=== PATIENT | male | born 1970 | race Two or more races ===

== ENCOUNTER 2023-12-12 21:40 | Emergency (ER) | payer MEDICAID ==
[~2023-12-12] VITALS: Ht 162.6 cm; Wt 86.0 kg
[2023-12-12] MEDS ORDERED: dicyclomine 10 MG capsule PO ONE (23:40)
[2023-12-12] MEDS ORDERED: normal saline 1000ML IV soln IVB ONE (23:40)
[2023-12-12] MEDS ORDERED: famotidine/PF 10 mg/ml inj IV ONE (23:40)
[2023-12-12] MEDS ORDERED: ondansetron/PF 4mg/2ml inj IV ONE (23:50)
[2023-12-13 00:01] LABS: BASOPHILS % (AUTO) 0.3 % (0-1); EOSINOPHILS # (AUTO) 0.3 X10'3 (0-0.9); EOSINOPHILS % (AUTO) 2.5 % (0-6); LYMPHOCYTES # (AUTO) 0.4 X10'3 (1.1-4.8); LYMPHOCYTES % (AUTO) 3.4 % (21-51); MEAN PLATELET VOLUME 8.4 FL (7.4-10.4); MONOCYTES # (AUTO) 0.9 X10'3 (0-0.9); MONOCYTES % (AUTO) 7.7 % (2-12); NEUTROPHILS # (AUTO) 9.8 X10'3 (1.8-7.7); NEUTROPHILS % (AUTO) 86.1 % (42-75); PLATELET COUNT 387 X10'3 (140-440); WHITE BLOOD COUNT 11.4 X10'3 (4.5-11.0)
[2023-12-13 00:17] LABS: ALANINE AMINOTRANSFERASE 14 U/L (12-78); ALBUMIN 3.7 G/DL (3.4-5.0); ALBUMIN/GLOBULIN RATIO 0.9 (1.1-1.5); ALKALINE PHOSPHATASE 98 IU/L (46-116); ANION GAP 10 (8-16); ASPARTATE AMINO TRANSFERASE 8 U/L (10-37); BILIRUBIN,TOTAL 0.7 MG/DL (0.1-1.0); BLOOD UREA NITROGEN 16 MG/DL (7-18); BUN/CREATININE RATIO 19.3 (10.0-20.0); CALCIUM 8.1 MG/DL (8.5-10.1); CHLORIDE 108 MMOL/L (99-107); CREATININE 0.83 MG/DL (0.60-1.10); ETHANOL < 10 MG/DL (<10); GLUCOSE 97 MG/DL (70-104); LIPASE 34 U/L (16-77); POTASSIUM 3.9 MMOL/L (3.5-5.1); SODIUM 140 MMOL/L (135-145); TOTAL CARBON DIOXIDE 21.7 MMOL/L (24-32); TOTAL PROTEIN 7.8 G/DL (6.4-8.2); eCRCL 85 ML/MIN; eGFR > 90 ML/MIN
[2023-12-13 00:25] LABS: HEMATOCRIT 29.9 % (42.0-52.0); HEMOGLOBIN 9.7 g/dl (14.0-17.9); MEAN CORPUSCULAR HEMOGLOBIN 18.9 PG (27.0-31.0); MEAN CORPUSCULAR VOLUME 58.4 FL (78-98); RED BLOOD COUNT 5.13 X10'6 (4.70-6.10)
[2023-12-13 00:26] LABS: MEAN CORPUSCULAR HGB CONC 32.4 g/dL (33.0-36.5); RED CELL DISTRIBUTION WIDTH 18.2 % (11.5-14.5)
[2023-12-13 02:19] LABS: BILIRUBIN,URINE NEGATIVE (Neg); CLARITY,URINE CLOUDY (Clear); COLOR,URINE YELLOW (Yellow); GLUCOSE, URINE NEGATIVE (Neg); KETONES,URINE NEGATIVE (Neg); LEUKOCYTE ESTERASE ,URINE NEGATIVE (Neg); NITRITES, URINE NEGATIVE (Neg); OCCULT BLOOD,URINE TRACE-INTACT (Neg); PROTEIN,URINE 30 mg/dl (Neg); UROBILINOGEN,URINE 0.2 E.U/dL (0.2-1.0)
[2023-12-13 02:34] LABS: UA COLLECTION TYPE URINAL
[2023-12-13 02:35] LABS: MUCUS STRANDS MANY /LPF (Neg); SQUAMOUS EPITHELIAL CELL,UR FEW /LPF (FEW)
[2023-12-13 02:36] LABS: BACTERIA,URINE 1+ /HPF (Neg); SPERM MANY /HPF (NEGATIVE); WBC,URINE 0-4 /HPF (0-4)
[2023-12-13 03:41] VITALS: BP 120/69; PULSE 71; RESP 16; TEMP 98.2; O2SAT 98
[2023-12-13 09:59] LABS: OCCULT BLOOD STOOL NEGATIVE (Neg)
== END 2023-12-13 04:03 | disposition home or self-care (01) ==
LOC: ER 21:43
DX: R10.9 Unspecified abdominal pain (principal); Z88.6 Allergy status to analgesic agent; Z79.899 Other long term (current) drug therapy
CPT/HCPCS: 36415; 80053; 80320; 81001; 82272; 83690; 85025; 96361; 96374; 96375; 99285; J2405; J3490; J7030

== ENCOUNTER 2023-12-16 16:29 | Inpatient (IN) | payer MEDICAID ==
[~2023-12-16] VITALS: Ht 162.6 cm; Wt 90.0 kg
[2023-12-16] MEDS: morphine 2 MG/ML inj. syringe IV ONE ×2 (16:43→16:45)
[2023-12-16] MEDS: morphine 4 MG/ML inj SYRINge IV ONE (16:43)
[2023-12-16] MEDS ORDERED: midazolam 1 mg/ML 2ml injection ONE (16:44)
[2023-12-16] MEDS: heparin 10,000 units/1 ML INJ IV ONE (16:44)
[2023-12-16] MEDS ORDERED: heparin 1,000unit/ml 10ml vial 10 ML ONE (16:44)
[2023-12-16] MEDS ORDERED: LIDOcaine 1% 30ml preserv. free vial ONE (16:44)
[2023-12-16] MEDS ORDERED: fentaNYL/PF 50MCG/1 ML 2ML syringe ONE (16:44)
[2023-12-16] MEDS ORDERED: iohexol 350MG/ML 100ml bottle IV ONE ×2 (16:44→17:13)
[2023-12-16] MEDS: heparin 25,000 UNIT/250ml bag 250 ML IV PRN ×2 (16:45)
[2023-12-16] MEDS ORDERED: heparin 10,000 units/1 ML INJ IV ONE (16:45)
[2023-12-16] MEDS: nitroGLYCERIN 0.4mg SUBLingual tab SL PRN (16:46)
[2023-12-16] MEDS ORDERED: nitroGLYCERIN 500mcg/5mL D5W 5 ML IV ONE (16:55)
[2023-12-16] MEDS ORDERED: ondansetron/PF 4mg/2ml inj ONE ×2 (17:00→17:24)
[2023-12-16 17:09] LABS: BASOPHILS % (AUTO) 0.5 % (0-1); EOSINOPHILS # (AUTO) 0.1 X10'3 (0-0.9); EOSINOPHILS % (AUTO) 0.8 % (0-6); LYMPHOCYTES # (AUTO) 1.3 X10'3 (1.1-4.8); LYMPHOCYTES % (AUTO) 17.2 % (21-51); MEAN PLATELET VOLUME 8.5 FL (7.4-10.4); MONOCYTES # (AUTO) 1.3 X10'3 (0-0.9); MONOCYTES % (AUTO) 16.9 % (2-12); NEUTROPHILS % (AUTO) 64.6 % (42-75); PLATELET COUNT 445 X10'3 (140-440); WHITE BLOOD COUNT 7.8 X10'3 (4.5-11.0)
[2023-12-16 17:21] LABS: ALBUMIN 4.2 G/DL (3.4-5.0); ANION GAP 18 (8-16); BLOOD UREA NITROGEN 28 MG/DL (7-18); BUN/CREATININE RATIO 21.7 (10.0-20.0); CALCIUM 8.6 MG/DL (8.5-10.1); CHLORIDE 106 MMOL/L (99-107); CREATININE 1.29 MG/DL (0.60-1.10); GLUCOSE 138 MG/DL (70-104); POTASSIUM 3.3 MMOL/L (3.5-5.1); SODIUM 139 MMOL/L (135-145); TOTAL CARBON DIOXIDE 15.4 MMOL/L (24-32); eCRCL 55 ML/MIN; eGFR 58 ML/MIN
[2023-12-16 17:28] LABS: PRO BRAIN NATRIURETIC PEPTIDE 47 PG/ML (0-125)
[2023-12-16 17:36] LABS: HEMATOCRIT 34.6 % (42.0-52.0); HEMOGLOBIN 10.9 g/dl (14.0-17.9); MEAN CORPUSCULAR HEMOGLOBIN 18.3 PG (27.0-31.0); MEAN CORPUSCULAR HGB CONC 31.4 g/dL (33.0-36.5); MEAN CORPUSCULAR VOLUME 58.1 FL (78-98); RED BLOOD COUNT 5.95 X10'6 (4.70-6.10); RED CELL DISTRIBUTION WIDTH 18.6 % (11.5-14.5)
[2023-12-16] MEDS ORDERED: tPA-cathflo 2 MG/2 ml IV flush ONE (17:38)
[2023-12-16 17:46] LABS: APTT 25 SECONDS (22-32); PROTHROMBIN TIME 10.4 SECONDS (9.0-12.0)
[2023-12-16] MEDS ORDERED: proCHLORperazine 10 MG/2 ml inj ONE (17:47)
[2023-12-16] MEDS ORDERED: tirofiban 12.5mg in NS 250mL 250 ML IV ONE (17:59)
[2023-12-16] MEDS: normal saline 1000ml 1,000 ML IV ONE (18:00)
[2023-12-16] MEDS: tirofiban 12.5mg in NS 250mL 250 ML IV SCH (18:15)
[2023-12-16 18:27] LABS: TOTAL CELLS COUNTED 100
[2023-12-16 18:35] LABS: HYPOCHROMASIA 1+; PLATELET ESTIMATE INCREASED; POLYCHROMASIA 1+; SCHISTOCYTES FEW; TARGET CELLS FEW
[2023-12-16 19:00] VITALS: BP_SYST 126; BP_SYST 146; BP_DIAS 81; BP_DIAS 89; PULSE 86; RESP 18; O2SAT 97
[2023-12-16] MEDS ORDERED: magnesium hydroxide 30ml (MOM) UD suspension PO PRN (19:35)
[2023-12-16] MEDS ORDERED: acetaminophen 325mg tablet PO PRN (19:40)
[2023-12-16 20:00] VITALS: BP_SYST 133; BP_SYST 158; BP_DIAS 87; BP_DIAS 94; PULSE 85; RESP 21; O2SAT 98
[2023-12-16] MEDS: docusate sod 100mg capsule PO SCH (20:00)
[2023-12-16] MEDS ORDERED: PERFLUTREN PROTEIN-A MICROSPHR (Optison) 0.22 MG/ML 3ML VIAL IV PRN (20:10)
[2023-12-16] MEDS ORDERED: lisinopril 5mg tablet PO ONE (20:30)
[2023-12-16 21:00] VITALS: BP_SYST 135; BP_SYST 157; BP_DIAS 90; BP_DIAS 94; PULSE 81; RESP 16; O2SAT 98
[2023-12-16 22:00] VITALS: BP_SYST 133; BP_SYST 153; BP_DIAS 90; BP_DIAS 92; PULSE 80; RESP 14; O2SAT 98
[2023-12-16 23:00] VITALS: BP_SYST 130; BP_SYST 159; BP_DIAS 91; BP_DIAS 95; PULSE 81; RESP 15; O2SAT 98
[2023-12-17] VITALS (22 sets, daily range): BP systolic 116–155; BP diastolic 38–95; PULSE 69–98; RESP 11–21; O2SAT 94–99
[2023-12-17 02:34] LABS: BASOPHILS % (AUTO) 0.3 % (0-1); EOSINOPHILS # (AUTO) 0.1 X10'3 (0-0.9); EOSINOPHILS % (AUTO) 1.1 % (0-6); LYMPHOCYTES # (AUTO) 1.5 X10'3 (1.1-4.8); LYMPHOCYTES % (AUTO) 20.8 % (21-51); MEAN PLATELET VOLUME 8.9 FL (7.4-10.4); MONOCYTES # (AUTO) 0.8 X10'3 (0-0.9); MONOCYTES % (AUTO) 11.4 % (2-12); NEUTROPHILS # (AUTO) 4.9 X10'3 (1.8-7.7); NEUTROPHILS % (AUTO) 66.4 % (42-75); PLATELET COUNT 379 X10'3 (140-440); WHITE BLOOD COUNT 7.4 X10'3 (4.5-11.0)
[2023-12-17] MEDS: heparin 10,000 units/1 ML INJ IV PRN (02:44)
[2023-12-17 02:47] LABS: ALANINE AMINOTRANSFERASE 39 U/L (12-78); ALBUMIN 3.2 G/DL (3.4-5.0); ALBUMIN/GLOBULIN RATIO 0.9 (1.1-1.5); ALKALINE PHOSPHATASE 83 IU/L (46-116); ANION GAP 12 (8-16); ASPARTATE AMINO TRANSFERASE 132 U/L (10-37); BILIRUBIN,TOTAL 0.3 MG/DL (0.1-1.0); BLOOD UREA NITROGEN 19 MG/DL (7-18); BUN/CREATININE RATIO 21.8 (10.0-20.0); CALCIUM 7.5 MG/DL (8.5-10.1); CHLORIDE 109 MMOL/L (99-107); CHOL/HDL RATIO 3.3 (0.00-4.99); CHOLESTEROL 90 MG/DL (0-200); CREATININE 0.87 MG/DL (0.60-1.10); GLUCOSE 101 MG/DL (70-104); HDL CHOLESTEROL 27 MG/DL (35-60); LDL CHOLESTEROL 49 MG/DL (50-100); PHOSPHORUS 3.8 MG/DL (2.3-4.5); POTASSIUM 3.3 MMOL/L (3.5-5.1); PRO BRAIN NATRIURETIC PEPTIDE 118 PG/ML (0-125); SODIUM 139 MMOL/L (135-145); TOTAL PROTEIN 6.9 G/DL (6.4-8.2); TRIGLYCERIDES 79 MG/DL (20-135); eCRCL 81 ML/MIN; eGFR > 90 ML/MIN
[2023-12-17] MEDS: HYDROcodone/acetaminophen 10/325mg tab PO PRN (02:53)
[2023-12-17 02:59] LABS: MAGNESIUM 1.9 MG/DL (1.5-2.4)
[2023-12-17 03:03] LABS: RED BLOOD COUNT 4.88 X10'6 (4.70-6.10)
[2023-12-17 03:04] LABS: MEAN CORPUSCULAR HEMOGLOBIN 18.5 PG (27.0-31.0); MEAN CORPUSCULAR HGB CONC 32.3 g/dL (33.0-36.5); MEAN CORPUSCULAR VOLUME 57.4 FL (78-98); RED CELL DISTRIBUTION WIDTH 18.7 % (11.5-14.5)
[2023-12-17 03:37] LABS: ANISOCYTOSIS 2+; MICROCYTOSIS 2+; PLATELET ESTIMATE NORMAL
[2023-12-17 03:39] LABS: HYPOCHROMASIA 1+; LARGE PLATELETS FEW; SCHISTOCYTES FEW
[2023-12-17] MEDS: metoprolol succinate 25mg (24-HOUR) SR. Tablet PO SCH (07:38)
[2023-12-17] MEDS: atorvastatin 20mg tablet PO SCH (07:38)
[2023-12-17] MEDS: pantoprazole 40mg Tablet.DR PO SCH (07:38)
[2023-12-17] MEDS: aspirin 325mg tablet PO SCH (07:39)
[2023-12-17] MEDS ORDERED: atorvastatin 20mg tablet PO SCH (08:00)
[2023-12-17] MEDS ORDERED: LIDOcaine 1% 30ml preserv. free vial ONE (11:09)
[2023-12-17] MEDS ORDERED: midazolam 1 mg/ML 2ml injection ONE (11:09)
[2023-12-17] MEDS ORDERED: fentaNYL/PF 50MCG/1 ML 2ML syringe ONE (11:09)
[2023-12-17] MEDS ORDERED: iohexol 350MG/ML 100ml bottle IV ONE ×2 (11:10→12:27)
[2023-12-17] MEDS ORDERED: heparin 1,000unit/ml 10ml vial 10 ML ONE (11:10)
[2023-12-17] MEDS ORDERED: heparin 1,000 UNITS/NS 500ml 500 ML ONE (12:30)
[2023-12-17] MEDS ORDERED: nitroGLYCERIN 500mcg/5mL D5W 5 ML IV ONE ×2 (12:31→13:00)
[2023-12-17] MEDS ORDERED: iohexol 350 MG/ML 50ML vial IV ONE ×2 (12:35→12:51)
[2023-12-17] MEDS ORDERED: ticagrelor 90mg tablet ONE (13:10)
[2023-12-17] MEDS: normal saline 1000ml 1,000 ML IV SCH (15:27)
[2023-12-17] MEDS: morphine 2 MG/ML inj. syringe IV PRN (15:41)
[2023-12-17] MEDS ORDERED: NO HOME MEDS (16:07)
[2023-12-17] MEDS: aspirin 81mg, enteric-coated 1 TAB TABLET.DR PO SCH (16:10)
[2023-12-17] MEDS: cyclobenzaprine 10mg tablet PO PRN (17:01)
[2023-12-17] MEDS: ticagrelor 90mg tablet PO SCH (19:18)
[2023-12-17] MEDS: proCHLORperazine 10 MG/2 ml inj IV PRN (19:18)
[2023-12-18] VITALS (27 sets, daily range): BP systolic 92–141; BP diastolic 53–104; PULSE 69–86; RESP 12–39; TEMP 98.2–99.2; O2SAT 95–99
[2023-12-18 03:04] LABS: ALBUMIN 2.6 G/DL (3.4-5.0); ANION GAP 8 (8-16); BLOOD UREA NITROGEN 11 MG/DL (7-18); CALCIUM 7.5 MG/DL (8.5-10.1); CHLORIDE 111 MMOL/L (99-107); CREATININE 0.61 MG/DL (0.60-1.10); GLUCOSE 98 MG/DL (70-104); MAGNESIUM 1.8 MG/DL (1.5-2.4); POTASSIUM 3.3 MMOL/L (3.5-5.1); SODIUM 140 MMOL/L (135-145); TOTAL CARBON DIOXIDE 21.3 MMOL/L (24-32); eCRCL 116 ML/MIN; eGFR > 90 ML/MIN
[2023-12-18 03:32] LABS: BASOPHILS % (AUTO) 0.6 % (0-1); EOSINOPHILS # (AUTO) 0.1 X10'3 (0-0.9); EOSINOPHILS % (AUTO) 2.2 % (0-6); LYMPHOCYTES # (AUTO) 1.3 X10'3 (1.1-4.8); LYMPHOCYTES % (AUTO) 21.8 % (21-51); MEAN CORPUSCULAR HEMOGLOBIN 17.6 PG (27.0-31.0); MEAN CORPUSCULAR HGB CONC 28.9 g/dL (33.0-36.5); MEAN PLATELET VOLUME 8.3 FL (7.4-10.4); MONOCYTES # (AUTO) 0.8 X10'3 (0-0.9); MONOCYTES % (AUTO) 12.5 % (2-12); NEUTROPHILS # (AUTO) 3.8 X10'3 (1.8-7.7); NEUTROPHILS % (AUTO) 62.9 % (42-75); PLATELET COUNT 325 X10'3 (140-440); RED BLOOD COUNT 3.49 X10'6 (4.70-6.10); RED CELL DISTRIBUTION WIDTH 19.1 % (11.5-14.5)
[2023-12-18 03:41] LABS: HEMOGLOBIN 6.1 g/dl (14.0-17.9)
[2023-12-18 03:42] LABS: HEMATOCRIT 21.3 % (42.0-52.0)
[2023-12-18 04:47] LABS: ANISOCYTOSIS 2+; MICROCYTOSIS 2+; PLATELET ESTIMATE NORMAL
[2023-12-18 04:52] LABS: ELLIPTOCYTES FEW; HYPOCHROMASIA 2+; SCHISTOCYTES FEW
[2023-12-18] MEDS: pantoprazole 40MG/NS 100ML BAG 100 ML IV SCH (05:07)
[2023-12-18 05:48] LABS: MEAN CORPUSCULAR HEMOGLOBIN 17.7 PG (27.0-31.0); MEAN CORPUSCULAR HGB CONC 29.4 g/dL (33.0-36.5); MEAN CORPUSCULAR VOLUME 60.1 FL (78-98); MEAN PLATELET VOLUME 8.2 FL (7.4-10.4); PLATELET COUNT 325 X10'3 (140-440); RED BLOOD COUNT 3.45 X10'6 (4.70-6.10); RED CELL DISTRIBUTION WIDTH 18.9 % (11.5-14.5); WHITE BLOOD COUNT 6.3 X10'3 (4.5-11.0)
[2023-12-18 05:51] LABS: HEMATOCRIT 20.7 % (42.0-52.0); HEMOGLOBIN 6.1 g/dl (14.0-17.9)
[2023-12-18] MEDS: lisinopril 5mg tablet PO SCH (07:29)
[2023-12-18 20:25] LABS: BASOPHILS % (AUTO) 0.4 % (0-1); EOSINOPHILS # (AUTO) 0.1 X10'3 (0-0.9); EOSINOPHILS % (AUTO) 1.4 % (0-6); HEMATOCRIT 27.5 % (42.0-52.0); HEMOGLOBIN 8.3 g/dl (14.0-17.9); LYMPHOCYTES # (AUTO) 1.2 X10'3 (1.1-4.8); LYMPHOCYTES % (AUTO) 12.8 % (21-51); MEAN CORPUSCULAR HEMOGLOBIN 19.9 PG (27.0-31.0); MEAN CORPUSCULAR HGB CONC 30.1 g/dL (33.0-36.5); MEAN PLATELET VOLUME 8.4 FL (7.4-10.4); MONOCYTES # (AUTO) 0.9 X10'3 (0-0.9); MONOCYTES % (AUTO) 9.1 % (2-12); NEUTROPHILS # (AUTO) 7.3 X10'3 (1.8-7.7); NEUTROPHILS % (AUTO) 76.3 % (42-75); PLATELET COUNT 273 X10'3 (140-440); RED BLOOD COUNT 4.17 X10'6 (4.70-6.10); RED CELL DISTRIBUTION WIDTH 23.8 % (11.5-14.5); WHITE BLOOD COUNT 9.6 X10'3 (4.5-11.0)
[2023-12-18 23:32] LABS: ANISOCYTOSIS 3+; MICROCYTOSIS 2+; PLATELET ESTIMATE NORMAL
[2023-12-18 23:33] LABS: ELLIPTOCYTES FEW; HYPOCHROMASIA 1+
[2023-12-18 23:34] LABS: SCHISTOCYTES FEW
[2023-12-19] VITALS (12 sets, daily range): BP systolic 79–118; BP diastolic 55–81; PULSE 72–89; RESP 16–26; TEMP 97.2–99; O2SAT 95–100
[2023-12-19] MEDS ORDERED: LIDOcaine Viscous 15ml cup ONE (09:45)
[2023-12-19] MEDS ORDERED: MIDAZolam 1 MG/ML 5ML VIAL ONE (09:45)
[2023-12-19] MEDS ORDERED: fentaNYL/PF 50MCG/1 ML 2ML syringe ONE (09:45)
[2023-12-19 12:37] LABS: BASOPHILS % (AUTO) 0.6 % (0-1); EOSINOPHILS # (AUTO) 0.3 X10'3 (0-0.9); EOSINOPHILS % (AUTO) 3.8 % (0-6); HEMATOCRIT 25.7 % (42.0-52.0); HEMOGLOBIN 7.8 g/dl (14.0-17.9); LYMPHOCYTES % (AUTO) 12.8 % (21-51); MEAN CORPUSCULAR HEMOGLOBIN 19.7 PG (27.0-31.0); MEAN CORPUSCULAR HGB CONC 30.1 g/dL (33.0-36.5); MEAN CORPUSCULAR VOLUME 65.5 FL (78-98); MEAN PLATELET VOLUME 8.7 FL (7.4-10.4); MONOCYTES # (AUTO) 0.9 X10'3 (0-0.9); MONOCYTES % (AUTO) 11.9 % (2-12); NEUTROPHILS # (AUTO) 5.4 X10'3 (1.8-7.7); NEUTROPHILS % (AUTO) 70.9 % (42-75); PLATELET COUNT 297 X10'3 (140-440); RED BLOOD COUNT 3.93 X10'6 (4.70-6.10); RED CELL DISTRIBUTION WIDTH 23.4 % (11.5-14.5); WHITE BLOOD COUNT 7.6 X10'3 (4.5-11.0)
[2023-12-19 19:55] LABS: BASOPHILS % (AUTO) 0.4 % (0-1); EOSINOPHILS # (AUTO) 0.5 X10'3 (0-0.9); EOSINOPHILS % (AUTO) 5.1 % (0-6); HEMATOCRIT 27.1 % (42.0-52.0); HEMOGLOBIN 8.2 g/dl (14.0-17.9); LYMPHOCYTES # (AUTO) 1.2 X10'3 (1.1-4.8); LYMPHOCYTES % (AUTO) 13.2 % (21-51); MEAN CORPUSCULAR HEMOGLOBIN 19.8 PG (27.0-31.0); MEAN CORPUSCULAR HGB CONC 30.2 g/dL (33.0-36.5); MEAN CORPUSCULAR VOLUME 65.6 FL (78-98); MEAN PLATELET VOLUME 8.6 FL (7.4-10.4); MONOCYTES # (AUTO) 1.2 X10'3 (0-0.9); MONOCYTES % (AUTO) 12.6 % (2-12); NEUTROPHILS # (AUTO) 6.3 X10'3 (1.8-7.7); NEUTROPHILS % (AUTO) 68.7 % (42-75); PLATELET COUNT 301 X10'3 (140-440); RED BLOOD COUNT 4.13 X10'6 (4.70-6.10); RED CELL DISTRIBUTION WIDTH 24.1 % (11.5-14.5); WHITE BLOOD COUNT 9.2 X10'3 (4.5-11.0)
[2023-12-19 23:55] LABS: LARGE PLATELETS MODERATE; PLATELET ESTIMATE NORMAL
[2023-12-19 23:56] LABS: ANISOCYTOSIS 3+; HYPOCHROMASIA 2+; MICROCYTOSIS 2+
[2023-12-19 23:57] LABS: TARGET CELLS FEW
[2023-12-20] VITALS (7 sets, daily range): BP systolic 92–124; BP diastolic 38–80; PULSE 62–91; RESP 9–22; TEMP 97.2–98.1; O2SAT 94–99
[2023-12-20 10:32] LABS: BASOPHILS % (AUTO) 0.5 % (0-1); EOSINOPHILS # (AUTO) 0.4 X10'3 (0-0.9); EOSINOPHILS % (AUTO) 4.3 % (0-6); HEMATOCRIT 24.4 % (42.0-52.0); HEMOGLOBIN 7.6 g/dl (14.0-17.9); LYMPHOCYTES # (AUTO) 1.2 X10'3 (1.1-4.8); MEAN CORPUSCULAR HEMOGLOBIN 20.1 PG (27.0-31.0); MEAN CORPUSCULAR HGB CONC 30.9 g/dL (33.0-36.5); MEAN CORPUSCULAR VOLUME 65.2 FL (78-98); MEAN PLATELET VOLUME 8.7 FL (7.4-10.4); MONOCYTES # (AUTO) 0.6 X10'3 (0-0.9); MONOCYTES % (AUTO) 6.6 % (2-12); NEUTROPHILS # (AUTO) 6.9 X10'3 (1.8-7.7); NEUTROPHILS % (AUTO) 75.6 % (42-75); PLATELET COUNT 320 X10'3 (140-440); RED BLOOD COUNT 3.75 X10'6 (4.70-6.10); RED CELL DISTRIBUTION WIDTH 23.9 % (11.5-14.5); WHITE BLOOD COUNT 9.2 X10'3 (4.5-11.0)
[2023-12-20 10:52] LABS: ALANINE AMINOTRANSFERASE 28 U/L (12-78); ALBUMIN 2.4 G/DL (3.4-5.0); ALBUMIN/GLOBULIN RATIO 0.7 (1.1-1.5); ALKALINE PHOSPHATASE 68 IU/L (46-116); ANION GAP 11 (8-16); ASPARTATE AMINO TRANSFERASE 34 U/L (10-37); BILIRUBIN,TOTAL 0.4 MG/DL (0.1-1.0); BLOOD UREA NITROGEN 7 MG/DL (7-18); BUN/CREATININE RATIO 11.3 (10.0-20.0); CALCIUM 7.5 MG/DL (8.5-10.1); CHLORIDE 108 MMOL/L (99-107); CREATININE 0.62 MG/DL (0.60-1.10); GLUCOSE 160 MG/DL (70-104); POTASSIUM 3.1 MMOL/L (3.5-5.1); SODIUM 145 MMOL/L (135-145); TOTAL CARBON DIOXIDE 26.4 MMOL/L (24-32); TOTAL PROTEIN 5.8 G/DL (6.4-8.2); eCRCL 114 ML/MIN; eGFR > 90 ML/MIN
[2023-12-20] MEDS ORDERED: iohexol 300mg/ml 100ml inj. ONE (11:05)
[2023-12-20 11:12] LABS: ANISOCYTOSIS 3+; MICROCYTOSIS 2+; PLATELET ESTIMATE NORMAL
[2023-12-20 11:13] LABS: HYPOCHROMASIA 1+; POIKILOCYTOSIS 1+
[2023-12-20] MEDS ORDERED: morphine 2 MG/ML inj. syringe IV PRN (12:35)
[2023-12-20] MEDS: morphine 4 MG/ML inj SYRINge IV PRN (13:14)
[2023-12-20] MEDS: morphine 2 MG/ML inj. syringe IV PRN (13:48)
[2023-12-20] MEDS: OXAZEpam 15mg capsule PO PRN (21:22)
[2023-12-20] MEDS: ondansetron/PF 4mg/2ml inj IV PRN (21:22)
[2023-12-20] MEDS: polyethylene glycol 3350 17gm powd pack PO SCH (21:23)
[2023-12-21] VITALS (21 sets, daily range): BP systolic 95–141; BP diastolic 58–87; PULSE 65–98; RESP 12–22; TEMP 96–99; O2SAT 93–100
[2023-12-21 08:14] LABS: BASOPHILS % (AUTO) 0.5 % (0-1); EOSINOPHILS # (AUTO) 0.6 X10'3 (0-0.9); EOSINOPHILS % (AUTO) 6.8 % (0-6); HEMATOCRIT 25.5 % (42.0-52.0); HEMOGLOBIN 7.7 g/dl (14.0-17.9); LYMPHOCYTES # (AUTO) 1.1 X10'3 (1.1-4.8); LYMPHOCYTES % (AUTO) 12.1 % (21-51); MEAN CORPUSCULAR HGB CONC 30.3 g/dL (33.0-36.5); MEAN PLATELET VOLUME 8.6 FL (7.4-10.4); MONOCYTES # (AUTO) 0.8 X10'3 (0-0.9); MONOCYTES % (AUTO) 9.5 % (2-12); NEUTROPHILS # (AUTO) 6.3 X10'3 (1.8-7.7); NEUTROPHILS % (AUTO) 71.1 % (42-75); PLATELET COUNT 363 X10'3 (140-440); RED BLOOD COUNT 3.86 X10'6 (4.70-6.10); RED CELL DISTRIBUTION WIDTH 24.2 % (11.5-14.5); WHITE BLOOD COUNT 8.9 X10'3 (4.5-11.0)
[2023-12-21] MEDS: nicotine 21mg patch - 24 hr TD SCH (09:33)
[2023-12-21] MEDS: pantoprazole 40 MG vial IV SCH (09:40)
[2023-12-21 09:57] LABS: ANISOCYTOSIS 3+; ELLIPTOCYTES FEW; HYPOCHROMASIA 2+; MICROCYTOSIS 2+; PLATELET ESTIMATE NORMAL; POLYCHROMASIA FEW; TEAR DROP CELLS 1+
[2023-12-21 09:58] LABS: SCHISTOCYTES FEW
[2023-12-21] MEDS ORDERED: magnesium Cl slow-release 64mg tablet PO PRN (11:00)
[2023-12-21] MEDS ORDERED: magnesium 4gm in 100ml NS 100 ML IV PRN (11:00)
[2023-12-21] MEDS ORDERED: magnesium 2GM in 50ml NS 50 ML IV PRN (11:00)
[2023-12-21] MEDS ORDERED: potassium Cl 20 mEq SR tablet PO PRN (11:00)
[2023-12-21] MEDS ORDERED: potassium Cl 40MEQ/1/2NS 520ml 520 ML IV PRN (11:00)
[2023-12-21 12:18] LABS: PRE OP PROTIME 10.6 SECONDS (9.0-12.0)
[2023-12-21] MEDS ORDERED: ringers solution, lacted 1,000 ML IV SCH (12:45)
[2023-12-21] MEDS ORDERED: labetalol 20mg/4ml (5mg/ml) syringe IV PRN (12:45)
[2023-12-21] MEDS ORDERED: morphine 4 MG/ML inj SYRINge IV PRN (12:45)
[2023-12-21] MEDS ORDERED: morphine 2 MG/ML inj. syringe IV PRN (12:45)
[2023-12-21] MEDS ORDERED: enalaprilat dihydrate 2.5mg/2ml vial IV PRN (12:45)
[2023-12-21] MEDS ORDERED: meperidine/PF 25mg/ml syringe IV PRN ×3 (12:45)
[2023-12-21] MEDS ORDERED: neostigmine methylsulfate 1 MG/ML 10ml vial ONE (12:47)
[2023-12-21] MEDS ORDERED: dexamethasone sod phosphate 10mg/ml inj ONE (12:47)
[2023-12-21] MEDS ORDERED: ondansetron/PF 4mg/2ml inj ONE (12:47)
[2023-12-21] MEDS ORDERED: glycopyrrolate 0.2mg/ml inj ONE (12:47)
[2023-12-21] MEDS ORDERED: sevoflurane 250ml liquid IH ONE (12:47)
[2023-12-21] MEDS ORDERED: LIDOcaine 1% (10mg/ml) 2ml vial ONE (12:54)
[2023-12-21] MEDS ORDERED: midazolam 1 mg/ML 2ml injection ONE (12:55)
[2023-12-21] MEDS ORDERED: fentaNYL /PF 50mcg/ml 5ml ampule ONE (12:56)
[2023-12-21] MEDS ORDERED: LidoCAINE 2% Topical Jelly 11mL syringe ONE (13:14)
[2023-12-21] MEDS ORDERED: rocuronium 10mg/ml inj IV ONE (13:19)
[2023-12-21] MEDS ORDERED: propofol inj 20 ML IV ONE (13:19)
[2023-12-21] MEDS ORDERED: LIDOcaine 2% jelly 6ml syringe ***for topical use only ONE (13:20)
[2023-12-21] MEDS ORDERED: ceFAZolin 1000mg inj ONE ×2 (13:53)
[2023-12-21] MEDS: heparin 10,000 units/1 ML INJ ONE (14:18)
[2023-12-21] MEDS: BUPIVAcaine/PF 2.5mg/ml (0.25%) 10ml vial ONE (15:00)
[2023-12-21] MEDS: ondansetron/PF 4mg/2ml inj IV PRN (15:18)
[2023-12-21] MEDS: proCHLORperazine 10 MG/2 ml inj IV PRN (15:39)
[2023-12-21] MEDS: potassium Cl 20 mEq SR tablet PO PRN (17:06)
[2023-12-21] MEDS: K and/or MAG REPLACEMENT MC SCH (20:00)
[2023-12-22] VITALS (9 sets, daily range): BP systolic 111–121; BP diastolic 58–86; PULSE 82–90; RESP 13–19; TEMP 97.1–98.5; O2SAT 98–100
[2023-12-22] MEDS: morphine 2 MG/ML inj. syringe IV PRN (02:00)
[2023-12-22] MEDS: normal saline 500ml IV soln 500 ML IV ONE (02:48)
[2023-12-22] MEDS: nitroGLYCERIN-Tridil 50MG/D5W 250 ML IV SCH (05:16)
[2023-12-22 06:39] LABS: ISTAT HGB ART 7.5 g/dl (14.0-17.9); ISTAT Hct ART 22 %PCV (42-52); ISTAT O2 SATURATION ARTERIAL 96 % (95-98); ISTAT SOURCE BLNK
[2023-12-22 09:18] LABS: BASOPHILS % (AUTO) 0.1 % (0-1); EOSINOPHILS % (AUTO) 0 % (0-6); LYMPHOCYTES # (AUTO) 0.8 X10'3 (1.1-4.8); LYMPHOCYTES % (AUTO) 4.5 % (21-51); MONOCYTES # (AUTO) 0.7 X10'3 (0-0.9); MONOCYTES % (AUTO) 3.8 % (2-12); NEUTROPHILS # (AUTO) 16.4 X10'3 (1.8-7.7); NEUTROPHILS % (AUTO) 91.6 % (42-75); PLATELET COUNT 454 X10'3 (140-440); WHITE BLOOD COUNT 17.9 X10'3 (4.5-11.0)
[2023-12-22 09:52] LABS: HEMATOCRIT 31.3 % (42.0-52.0); HEMOGLOBIN 10.3 g/dl (14.0-17.9); MEAN CORPUSCULAR HEMOGLOBIN 21.7 PG (27.0-31.0); MEAN CORPUSCULAR HGB CONC 32.9 g/dL (33.0-36.5); MEAN CORPUSCULAR VOLUME 66.2 FL (78-98); RED BLOOD COUNT 4.72 X10'6 (4.70-6.10); RED CELL DISTRIBUTION WIDTH 25.8 % (11.5-14.5)
[2023-12-22 11:00] LABS: ALANINE AMINOTRANSFERASE 22 U/L (12-78); ALBUMIN 2.5 G/DL (3.4-5.0); ALBUMIN/GLOBULIN RATIO 0.6 (1.1-1.5); ALKALINE PHOSPHATASE 64 IU/L (46-116); ANION GAP 7 (8-16); ASPARTATE AMINO TRANSFERASE 15 U/L (10-37); BILIRUBIN,TOTAL 0.5 MG/DL (0.1-1.0); BLOOD UREA NITROGEN 9 MG/DL (7-18); BUN/CREATININE RATIO 11.1 (10.0-20.0); CALCIUM 8.2 MG/DL (8.5-10.1); CHLORIDE 109 MMOL/L (99-107); CREATININE 0.81 MG/DL (0.60-1.10); GLUCOSE 160 MG/DL (70-104); POTASSIUM 4.4 MMOL/L (3.5-5.1); SODIUM 142 MMOL/L (135-145); TOTAL PROTEIN 6.5 G/DL (6.4-8.2); eCRCL 87 ML/MIN; eGFR > 90 ML/MIN
[2023-12-22 11:46] LABS: BILIRUBIN,URINE NEGATIVE (Neg); CLARITY,URINE CLEAR (Clear); COLOR,URINE YELLOW (Yellow); GLUCOSE, URINE NEGATIVE (Neg); KETONES,URINE NEGATIVE (Neg); LEUKOCYTE ESTERASE ,URINE NEGATIVE (Neg); NITRITES, URINE NEGATIVE (Neg); OCCULT BLOOD,URINE SMALL (Neg); PH,URINE 7.5 (4.8-8.0); PROTEIN,URINE NEGATIVE (Neg); UROBILINOGEN,URINE 0.2 E.U/dL (0.2-1.0)
[2023-12-22 11:55] LABS: SQUAMOUS EPITHELIAL CELL,UR FEW /LPF (FEW); UA COLLECTION TYPE FOLEY CATH
[2023-12-22 11:56] LABS: BACTERIA,URINE NONE SEEN /HPF (Neg); SPERM FEW /HPF (NEGATIVE); WBC,URINE 0-4 /HPF (0-4)
[2023-12-22 12:45] LABS: URINE AMPHETAMINE SCREEN NEGATIVE (Neg); URINE BARBITUATE SCREEN NEGATIVE (Neg); URINE BENZODIAZEPINES SCREEN POSITIVE (Neg); URINE CANNABINOID SCREEN NEGATIVE (Neg); URINE COCAINE SCREEN NEGATIVE (Neg); URINE METHADONE SCREEN NEGATIVE (Neg); URINE OPIATE SCREEN POSITIVE (Neg); URINE PHENCYCLIDINE SCREEN NEGATIVE (Neg)
[2023-12-22] MEDS ORDERED: LISI5TAB22 PO (14:38)
[2023-12-22] MEDS ORDERED: ASPI-1071 PO (14:38)
[2023-12-22] MEDS ORDERED: PANT-47 PO (14:38)
[2023-12-22] MEDS ORDERED: METO-395 PO (14:38)
[2023-12-22] MEDS ORDERED: ATOR20TA66 PO (14:38)
[2023-12-22] MEDS ORDERED: NITR0.4T51 SL (14:38)
[2023-12-22] MEDS ORDERED: TICA90TA PO (14:38)
[2023-12-24] MEDS ORDERED: HYDR-3965 PO (08:47)
== END 2023-12-22 15:29 | disposition home health service (06) | DRG 174 ==
LOC: ER 16:29 → CICU 2S 19:01 → PCU 3S 12-18 20:35
PROVIDERS: ADMIT Internal Medicine; ATTEND Internal Medicine
PROC: 02C03ZZ Extirpation of Matter from Coronary Artery, One Artery, Percutaneous Approach (ICD-10-PCS; principal; 2023-12-16)
PROC: 4A023N7 Measurement of Cardiac Sampling and Pressure, Left Heart, Percutaneous Approach (ICD-10-PCS; 2023-12-16)
PROC: B2111ZZ Fluoroscopy of Multiple Coronary Arteries using Low Osmolar Contrast (ICD-10-PCS; 2023-12-16)
PROC: B2151ZZ Fluoroscopy of Left Heart using Low Osmolar Contrast (ICD-10-PCS; 2023-12-16)
PROC: 02C03ZZ Extirpation of Matter from Coronary Artery, One Artery, Percutaneous Approach (ICD-10-PCS; 2023-12-17)
PROC: 4A023N7 Measurement of Cardiac Sampling and Pressure, Left Heart, Percutaneous Approach (ICD-10-PCS; 2023-12-17)
PROC: B2111ZZ Fluoroscopy of Multiple Coronary Arteries using Low Osmolar Contrast (ICD-10-PCS; 2023-12-17)
PROC: 30233N1 Transfusion of Nonautologous Red Blood Cells into Peripheral Vein, Percutaneous Approach (ICD-10-PCS; 2023-12-18)
PROC: 0DJ08ZZ Inspection of Upper Intestinal Tract, Via Natural or Artificial Opening Endoscopic (ICD-10-PCS; 2023-12-19)
PROC: BW211ZZ Computerized Tomography (CT Scan) of Abdomen and Pelvis using Low Osmolar Contrast (ICD-10-PCS; 2023-12-20)
PROC: 04QK0ZZ Repair Right Femoral Artery, Open Approach (ICD-10-PCS; 2023-12-21)
DX: I21.19 ST elevation (STEMI) myocardial infarction involving other coronary artery of inferior wall (principal); K92.2 Gastrointestinal hemorrhage, unspecified; D64.9 Anemia, unspecified; F15.10 Other stimulant abuse, uncomplicated; I10 Essential (primary) hypertension; E87.6 Hypokalemia; K44.9 Diaphragmatic hernia without obstruction or gangrene; E78.5 Hyperlipidemia, unspecified; I72.4 Aneurysm of artery of lower extremity; R58 Hemorrhage, not elsewhere classified; Z87.891 Personal history of nicotine dependence; Z88.6 Allergy status to analgesic agent
CPT/HCPCS: 36415; 36430; 43235; 71045; 71250; 74176; 74177; 80048; 80053; 80061; 80305; 81001; 82803; 83735; 83880; 84100; 84484; 85007; 85008; 85014; 85025; 85027; 85347; 85610; 85730; 86885; 86900; 86901; 86920; 87081; 92920; 92924; 92975; 93005; 93306; 93925; 93926; 93970; 99152; 99153; 99285; A4340; A4615; A4618; A4620; A6212; A6213; A6258; A6449; A7000; C1725; C1751; C1757; C1769; C1894; C9113; C9606; G0378; J0690; J0780; J1100; J1644; J2250; J2270; J2405; J2704; J2710; J2997; J3010; J3246; J3490; J7030; J7040; J7120; P9016; Q9967

== ENCOUNTER 2023-12-25 20:37 | Emergency (ER) | payer MEDICAID ==
[~2023-12-25] VITALS: Ht 162.6 cm; Wt 88.5 kg
[~2023-12-25 20:37] MED LIST: ASPI-1071 PO; ATOR20TA66 PO; HYDR-3965 PO; LISI5TAB22 PO; METO-395 PO; NITR0.4T51 SL; NO HOME MEDS; PANT-47 PO; TICA90TA PO
[2023-12-25 21:05] VITALS: BP 102/73; PULSE 89; RESP 16; TEMP 98.2; O2SAT 94
== END 2023-12-25 23:52 | disposition home or self-care (01) ==
LOC: ER 20:38
DX: R60.9 Edema, unspecified (principal); F15.90 Other stimulant use, unspecified, uncomplicated; Z88.6 Allergy status to analgesic agent; Z79.82 Long term (current) use of aspirin; Z79.899 Other long term (current) drug therapy
CPT/HCPCS: 93971; 99284

== ENCOUNTER 2024-01-05 15:46 | Emergency (ER) | payer MEDICAID ==
[~2024-01-05] VITALS: Ht 170.2 cm; Wt 90.0 kg
[2024-01-05 16:00] VITALS: BP 112/70; PULSE 84; RESP 18; TEMP 96.8; O2SAT 98
[2024-01-05 16:12] LABS: MEAN PLATELET VOLUME 7.2 FL (7.4-10.4)
[2024-01-05 16:14] LABS: PLATELET COUNT 755 X10'3 (140-440); WHITE BLOOD COUNT 6.5 X10'3 (4.5-11.0)
[2024-01-05 16:32] LABS: HEMATOCRIT 32.7 % (42.0-52.0); HEMOGLOBIN 10.6 g/dl (14.0-17.9); MEAN CORPUSCULAR HEMOGLOBIN 21.6 PG (27.0-31.0); MEAN CORPUSCULAR HGB CONC 32.4 g/dL (33.0-36.5); MEAN CORPUSCULAR VOLUME 66.6 FL (78-98); RED CELL DISTRIBUTION WIDTH 25.5 % (11.5-14.5)
[2024-01-05 16:33] LABS: ALANINE AMINOTRANSFERASE 41 U/L (12-78); ALBUMIN 3.8 G/DL (3.4-5.0); ALKALINE PHOSPHATASE 113 IU/L (46-116); ANION GAP 14 (8-16); ASPARTATE AMINO TRANSFERASE 17 U/L (10-37); BILIRUBIN,TOTAL 0.5 MG/DL (0.1-1.0); BLOOD UREA NITROGEN 14 MG/DL (7-18); BUN/CREATININE RATIO 17.3 (10.0-20.0); CALCIUM 8.6 MG/DL (8.5-10.1); CHLORIDE 108 MMOL/L (99-107); CREATININE 0.81 MG/DL (0.60-1.10); GLUCOSE 89 MG/DL (70-104); POTASSIUM 4.3 MMOL/L (3.5-5.1); SODIUM 146 MMOL/L (135-145); TOTAL CARBON DIOXIDE 24.2 MMOL/L (24-32); TOTAL PROTEIN 7.8 G/DL (6.4-8.2); eCRCL 96 ML/MIN; eGFR > 90 ML/MIN
[2024-01-05 16:39] LABS: PRO BRAIN NATRIURETIC PEPTIDE 688 PG/ML (0-125)
[2024-01-05 17:21] LABS: PLATELET ESTIMATE INCREASED; TOTAL CELLS COUNTED 100
[2024-01-05 17:22] LABS: ANISOCYTOSIS 3+; HYPOCHROMASIA 1+; MICROCYTOSIS 2+
[2024-01-05 17:23] LABS: ELLIPTOCYTES FEW; POLYCHROMASIA FEW; TARGET CELLS FEW; TEAR DROP CELLS FEW
[2024-01-05 17:24] LABS: BURR CELLS FEW
== END 2024-01-05 18:11 | disposition left against medical advice (07) ==
LOC: ER 15:47
DX: R07.89 Other chest pain (principal); Z53.21 Procedure and treatment not carried out due to patient leaving prior to being seen by health care provider
CPT/HCPCS: 36415; 80053; 83880; 84484; 85007; 85025; 93005; 99281

== ENCOUNTER 2024-01-07 13:25 | Inpatient (IN) | payer MEDICAID ==
[~2024-01-07] VITALS: Ht 162.6 cm; Wt 101.0 kg
[2024-01-07 14:03] LABS: RED BLOOD COUNT 4.92 X10'6 (4.70-6.10); WHITE BLOOD COUNT 5.6 X10'3 (4.5-11.0)
[2024-01-07 14:05] LABS: MEAN PLATELET VOLUME 7.4 FL (7.4-10.4); PLATELET COUNT 630 X10'3 (140-440); RED CELL DISTRIBUTION WIDTH 25.6 % (11.5-14.5)
[2024-01-07 14:14] LABS: ALBUMIN 3.5 G/DL (3.4-5.0); BLOOD UREA NITROGEN 13 MG/DL (7-18); BUN/CREATININE RATIO 18.6 (10.0-20.0); CALCIUM 8.4 MG/DL (8.5-10.1); GLUCOSE 92 MG/DL (70-104); POTASSIUM 4.1 MMOL/L (3.5-5.1); PRO BRAIN NATRIURETIC PEPTIDE 506 PG/ML (0-125); SODIUM 144 MMOL/L (135-145); TOTAL CARBON DIOXIDE 21.8 MMOL/L (24-32); eCRCL 100 ML/MIN; eGFR > 90 ML/MIN
[2024-01-07 14:20] LABS: ANION GAP 12 (8-16); CHLORIDE 110 MMOL/L (99-107)
[2024-01-07 14:26] LABS: MEAN CORPUSCULAR HEMOGLOBIN 21.6 PG (27.0-31.0); MEAN CORPUSCULAR HGB CONC 32.4 g/dL (33.0-36.5); MEAN CORPUSCULAR VOLUME 66.5 FL (78-98)
[2024-01-07 14:30] LABS: GIANT PLATELET FEW; LARGE PLATELETS FEW; PLATELET ESTIMATE INCREASED; TOTAL CELLS COUNTED 100
[2024-01-07 14:31] LABS: ANISOCYTOSIS 3+; MICROCYTOSIS 2+
[2024-01-07 14:32] LABS: ELLIPTOCYTES FEW
[2024-01-07 14:33] LABS: HYPOCHROMASIA 2+; TARGET CELLS FEW; TEAR DROP CELLS FEW
[2024-01-07] MEDS ORDERED: mag hydrox/Alum hydrox/simeth 30ml oral suspension PO PRN (15:35)
[2024-01-07] MEDS ORDERED: magnesium Cl slow-release 64mg tablet PO PRN (15:35)
[2024-01-07] MEDS ORDERED: acetaminophen 325mg tablet PO PRN (15:35)
[2024-01-07] MEDS ORDERED: magnesium 2GM in 50ml NS 50 ML IV PRN (15:35)
[2024-01-07] MEDS ORDERED: ondansetron/PF 4mg/2ml inj IV PRN (15:35)
[2024-01-07] MEDS ORDERED: potassium Cl 40MEQ/1/2NS 520ml 520 ML IV PRN (15:35)
[2024-01-07] MEDS ORDERED: magnesium hydroxide 30ml (MOM) UD suspension PO PRN (15:35)
[2024-01-07] MEDS ORDERED: magnesium 4gm in 100ml NS 100 ML IV PRN (15:35)
[2024-01-07] MEDS ORDERED: potassium Cl 20 mEq SR tablet PO PRN ×2 (15:35)
[2024-01-07 16:52] LABS: C-REACTIVE PROTEIN 0.09 MG/DL (0.0-0.5)
[2024-01-07] MEDS ORDERED: DOCU-391 PO (17:23)
[2024-01-07] MEDS ORDERED: ATOR80TA PO (17:42)
[2024-01-07] MEDS ORDERED: PANT40TA54 PO (17:42)
[2024-01-07] MEDS ORDERED: NITR0.4T48 (17:42)
[2024-01-07] MEDS ORDERED: LISI5TAB22 PO (17:42)
[2024-01-07] MEDS ORDERED: METO-395 PO (17:42)
[2024-01-07] MEDS ORDERED: ASPI-1397 PO (17:42)
[2024-01-07] MEDS ORDERED: TICA90TA2 PO (17:42)
[2024-01-07 18:24] LABS: D-DIMER 1.09 MG/L FEU (0-0.50)
[2024-01-07] MEDS: lisinopril 10 MG tablet PO SCH (18:43)
[2024-01-07] MEDS: atorvastatin 20mg tablet PO SCH (18:45)
[2024-01-07] MEDS: metoprolol succinate 25mg (24-HOUR) SR. Tablet PO SCH (18:46)
[2024-01-07] MEDS: aspirin 81mg, enteric-coated 1 TAB TABLET.DR PO SCH (18:46)
[2024-01-07] MEDS: ticagrelor 90mg tablet PO SCH (18:47)
[2024-01-07 20:00] VITALS: BP 111/75; PULSE 74; RESP 13; TEMP 97.9; O2SAT 97
[2024-01-07] MEDS: K and/or MAG REPLACEMENT MC SCH (20:00)
[2024-01-07 22:00] VITALS: BP 107/71; PULSE 64; RESP 18; TEMP 97.7; O2SAT 96
[2024-01-07] MEDS: nitroGLYCERIN 0.4mg SUBLingual tab SL PRN (22:21)
[2024-01-07] MEDS: docusate sod 100mg capsule PO SCH (22:36)
[2024-01-08 02:00] VITALS: BP 111/68; PULSE 65; RESP 18; TEMP 98.3; O2SAT 99
[2024-01-08 05:06] LABS: ALBUMIN 3.3 G/DL (3.4-5.0); ANION GAP 11 (8-16); BLOOD UREA NITROGEN 15 MG/DL (7-18); BUN/CREATININE RATIO 21.4 (10.0-20.0); CALCIUM 8.5 MG/DL (8.5-10.1); CHLORIDE 111 MMOL/L (99-107); GLUCOSE 94 MG/DL (70-104); MAGNESIUM 2.1 MG/DL (1.5-2.4); SODIUM 145 MMOL/L (135-145); TOTAL CARBON DIOXIDE 23.3 MMOL/L (24-32); eCRCL 100 ML/MIN; eGFR > 90 ML/MIN
[2024-01-08 06:24] LABS: PLATELET COUNT 592 X10'3 (140-440)
[2024-01-08 06:28] LABS: HEMATOCRIT 33.2 % (42.0-52.0); MEAN PLATELET VOLUME 7.5 FL (7.4-10.4); RED BLOOD COUNT 4.89 X10'6 (4.70-6.10); RED CELL DISTRIBUTION WIDTH 25.8 % (11.5-14.5)
[2024-01-08 07:02] LABS: HEMOGLOBIN 10.9 g/dl (14.0-17.9); MEAN CORPUSCULAR HEMOGLOBIN 21.7 PG (27.0-31.0); MEAN CORPUSCULAR VOLUME 66.3 FL (78-98)
[2024-01-08 07:03] LABS: MEAN CORPUSCULAR HGB CONC 32.7 g/dL (33.0-36.5)
[2024-01-08 07:43] VITALS: BP 115/82; PULSE 60; RESP 15; TEMP 97.3; O2SAT 99
[2024-01-08 08:10] LABS: TOTAL CELLS COUNTED 100
[2024-01-08 08:11] LABS: ANISOCYTOSIS 3+; HYPOCHROMASIA 2+; MICROCYTOSIS 2+; PLATELET ESTIMATE INCREASED; POLYCHROMASIA FEW; TARGET CELLS FEW
[2024-01-08 08:12] LABS: ELLIPTOCYTES FEW; GIANT PLATELET FEW; LARGE PLATELETS FEW; TEAR DROP CELLS FEW
[2024-01-08] MEDS ORDERED: docusate sod 100mg capsule PO PRN (10:30)
[2024-01-08 11:00] VITALS: BP 106/68; PULSE 66; RESP 14; TEMP 97.6; O2SAT 97
[2024-01-08 13:07] LABS: URINE AMPHETAMINE SCREEN NEGATIVE (Neg); URINE BARBITUATE SCREEN NEGATIVE (Neg); URINE BENZODIAZEPINES SCREEN NEGATIVE (Neg); URINE CANNABINOID SCREEN NEGATIVE (Neg); URINE COCAINE SCREEN NEGATIVE (Neg); URINE METHADONE SCREEN NEGATIVE (Neg); URINE OPIATE SCREEN NEGATIVE (Neg); URINE PHENCYCLIDINE SCREEN NEGATIVE (Neg)
[2024-01-08 15:40] VITALS: BP 102/67; PULSE 68; RESP 14; TEMP 97.1; O2SAT 98
[2024-01-08] MEDS ORDERED: ticagrelor 90mg tablet PO SCH (20:00)
[2024-01-08] MEDS: isosorbide mononitrate 30mg tab.SR.24H PO SCH (21:12)
[2024-01-08 22:00] VITALS: BP 101/66; PULSE 76; RESP 20; TEMP 97.6; O2SAT 97
[2024-01-09 02:00] VITALS: BP 128/72; PULSE 77; RESP 19; TEMP 97.6; O2SAT 99
[2024-01-09 06:00] VITALS: BP 112/74; PULSE 74; RESP 20; TEMP 97.8; O2SAT 96
[2024-01-09] MEDS: pantoprazole 40mg Tablet.DR PO SCH (07:40)
[2024-01-09 07:43] LABS: HEMATOCRIT 33.4 % (42.0-52.0); HEMOGLOBIN 10.3 g/dl (14.0-17.9); MEAN CORPUSCULAR HEMOGLOBIN 20.7 PG (27.0-31.0); MEAN CORPUSCULAR VOLUME 66.7 FL (78-98); MEAN PLATELET VOLUME 7.5 FL (7.4-10.4); PLATELET COUNT 562 X10'3 (140-440); RED BLOOD COUNT 5.01 X10'6 (4.70-6.10); RED CELL DISTRIBUTION WIDTH 25.5 % (11.5-14.5); WHITE BLOOD COUNT 6.8 X10'3 (4.5-11.0)
[2024-01-09] MEDS ORDERED: lisinopril 5mg tablet PO SCH (08:00)
[2024-01-09] MEDS ORDERED: non-formulary drug (Atorvastatin Calcium* (Lipitor*) 1 TAB) PO SCH (08:00)
[2024-01-09] MEDS ORDERED: aspirin 81mg, enteric-coated 1 TAB TABLET.DR PO SCH (08:00)
[2024-01-09] MEDS ORDERED: metoprolol succinate 25mg (24-HOUR) SR. Tablet PO SCH (08:00)
[2024-01-09 08:48] LABS: ANISOCYTOSIS 3+; PLATELET ESTIMATE INCREASED; TOTAL CELLS COUNTED 100
[2024-01-09 08:49] LABS: HYPOCHROMASIA 2+; LARGE PLATELETS FEW; MICROCYTOSIS 2+; POLYCHROMASIA 1+
[2024-01-09 08:50] LABS: ELLIPTOCYTES 1+; SCHISTOCYTES FEW; TARGET CELLS FEW; TEAR DROP CELLS FEW
[2024-01-09 10:01] LABS: ALBUMIN 3.5 G/DL (3.4-5.0); ANION GAP 11 (8-16); BLOOD UREA NITROGEN 16 MG/DL (7-18); CALCIUM 8.4 MG/DL (8.5-10.1); CHLORIDE 109 MMOL/L (99-107); GLUCOSE 89 MG/DL (70-104); MAGNESIUM 2.1 MG/DL (1.5-2.4); SODIUM 144 MMOL/L (135-145); TOTAL CARBON DIOXIDE 23.9 MMOL/L (24-32); eCRCL 87 ML/MIN; eGFR > 90 ML/MIN
[2024-01-09 11:00] VITALS: BP 93/61; PULSE 72; RESP 17; TEMP 97.9; O2SAT 97
[2024-01-09] MEDS ORDERED: TICA90TA2 PO (11:07)
[2024-01-09] MEDS ORDERED: METO-395 PO (11:07)
[2024-01-09] MEDS ORDERED: PANT40TA54 PO (11:07)
[2024-01-09] MEDS ORDERED: ATOR80TA PO (11:07)
[2024-01-09] MEDS ORDERED: ISOS30TA84 PO (11:07)
[2024-01-09] MEDS ORDERED: LISI5TAB22 PO (11:07)
[2024-01-09] MEDS ORDERED: ASPI-1397 PO (11:07)
[2024-01-10 08:56] LABS: HBSAG SCREEN Negative (Negative); HEP B CORE AB, IGM Negative (Negative); HEP B CORE AB, TOT Negative (Negative)
== END 2024-01-09 11:40 | disposition home or self-care (01) | DRG 198 ==
LOC: ER 13:26 → ED HOLD 15:36 → EDBEDREQ 18:07 → PCU 3S 19:10
PROVIDERS: ADMIT Internal Medicine; ATTEND Internal Medicine
DX: I25.110 Atherosclerotic heart disease of native coronary artery with unstable angina pectoris (principal); E78.5 Hyperlipidemia, unspecified; F17.210 Nicotine dependence, cigarettes, uncomplicated; Z98.61 Coronary angioplasty status; Z88.6 Allergy status to analgesic agent; Z79.82 Long term (current) use of aspirin; Z79.899 Other long term (current) drug therapy; I25.2 Old myocardial infarction
CPT/HCPCS: 36415; 71045; 80048; 80305; 83605; 83735; 83880; 84484; 85007; 85025; 85379; 85651; 86140; 86704; 86705; 87081; 87340; 93005; 93306; 99285; A6223; A6449; G0378

== ENCOUNTER 2024-01-14 16:22 | Emergency (ER) | payer MEDICAID, OTHER ==
[~2024-01-14 16:22] MED LIST changes: -ASPI-1071 PO; +ASPI-1397 PO; -ATOR20TA66 PO; +ATOR80TA PO; +DOCU-391 PO; -HYDR-3965 PO; +ISOS30TA84 PO; +NITR0.4T48; -NITR0.4T51 SL; -NO HOME MEDS; -PANT-47 PO; +PANT40TA54 PO; -TICA90TA PO; +TICA90TA2 PO
== END 2024-01-14 20:19 | disposition left against medical advice (07) ==
LOC: ER 16:24
DX: R42 Dizziness and giddiness (principal); Z53.21 Procedure and treatment not carried out due to patient leaving prior to being seen by health care provider

== ENCOUNTER 2024-02-29 20:38 | Inpatient (IN) | payer MEDICAID, OTHER ==
[~2024-02-29] VITALS: Ht 162.6 cm; Wt 95.0 kg
[~2024-02-29 20:38] MED LIST changes: -ASPI-1397 PO; +ASPI81TA52 PO; +FERR325T29 PO; +HYDR-3686 PO; -METO-395 PO; +METO-539 PO; +PANT-47 PO; -PANT40TA54 PO; +SERT-433
[2024-02-29 21:06] LABS: BASOPHILS # (AUTO) 0.1 X10'3 (0-0.2); BASOPHILS % (AUTO) 1.1 % (0-1); EOSINOPHILS # (AUTO) 0.2 X10'3 (0-0.9); EOSINOPHILS % (AUTO) 2.8 % (0-6); HEMATOCRIT 34.2 % (42.0-52.0); HEMOGLOBIN 10.3 g/dl (14.0-17.9); LYMPHOCYTES # (AUTO) 1.4 X10'3 (1.1-4.8); LYMPHOCYTES % (AUTO) 17.1 % (21-51); MEAN CORPUSCULAR HEMOGLOBIN 20.2 PG (27.0-31.0); MEAN CORPUSCULAR VOLUME 67.4 FL (78-98); MEAN PLATELET VOLUME 8.5 FL (7.4-10.4); MONOCYTES # (AUTO) 0.7 X10'3 (0-0.9); MONOCYTES % (AUTO) 8.4 % (2-12); NEUTROPHILS # (AUTO) 5.9 X10'3 (1.8-7.7); NEUTROPHILS % (AUTO) 70.6 % (42-75); RED BLOOD COUNT 5.07 X10'6 (4.70-6.10); RED CELL DISTRIBUTION WIDTH 25.2 % (11.5-14.5); WHITE BLOOD COUNT 8.4 X10'3 (4.5-11.0)
[2024-02-29] MEDS: nitroGLYCERIN 1gm ointment UD TP ONE (21:11)
[2024-02-29 21:19] LABS: ALANINE AMINOTRANSFERASE 21 U/L (12-78); ALBUMIN 3.2 G/DL (3.4-5.0); ALBUMIN/GLOBULIN RATIO 0.8 (1.1-1.5); ALKALINE PHOSPHATASE 142 IU/L (46-116); ANION GAP 12 (8-16); ASPARTATE AMINO TRANSFERASE 12 U/L (10-37); BILIRUBIN,TOTAL 0.3 MG/DL (0.1-1.0); BLOOD UREA NITROGEN 11 MG/DL (7-18); BUN/CREATININE RATIO 13.6 (10.0-20.0); CALCIUM 8.3 MG/DL (8.5-10.1); CHLORIDE 110 MMOL/L (99-107); CREATININE 0.81 MG/DL (0.60-1.10); GLUCOSE 132 MG/DL (70-104); POTASSIUM 3.9 MMOL/L (3.5-5.1); SODIUM 143 MMOL/L (135-145); TOTAL CARBON DIOXIDE 20.7 MMOL/L (24-32); eCRCL 86 ML/MIN; eGFR > 90 ML/MIN
[2024-02-29 21:27] LABS: PRO BRAIN NATRIURETIC PEPTIDE 259 PG/ML (0-125)
[2024-02-29 22:39] LABS: PLATELET COUNT 335 X10'3 (140-440)
[2024-03-01] VITALS (7 sets, daily range): BP systolic 101–132; BP diastolic 61–76; PULSE 48–87; RESP 12–20; TEMP 97.4–98.5; O2SAT 96–99
[2024-03-01] MEDS: morphine 4 MG/ML inj SYRINge IV ONE (00:02)
[2024-03-01] MEDS ORDERED: ondansetron/PF 4mg/2ml inj IV PRN (00:35)
[2024-03-01] MEDS ORDERED: mag hydrox/Alum hydrox/simeth 30ml oral suspension PO PRN (00:35)
[2024-03-01] MEDS ORDERED: potassium Cl 20 mEq SR tablet PO PRN ×2 (00:35)
[2024-03-01] MEDS ORDERED: magnesium 4gm in 100ml NS 100 ML IV PRN (00:35)
[2024-03-01] MEDS ORDERED: magnesium Cl slow-release 64mg tablet PO PRN (00:35)
[2024-03-01] MEDS ORDERED: morphine 2 MG/ML inj. syringe IV PRN (00:35)
[2024-03-01] MEDS ORDERED: magnesium hydroxide 30ml (MOM) UD suspension PO PRN (00:35)
[2024-03-01] MEDS ORDERED: acetaminophen 325mg tablet PO PRN ×2 (00:35)
[2024-03-01] MEDS ORDERED: potassium Cl 40MEQ/1/2NS 520ml 520 ML IV PRN (00:35)
[2024-03-01] MEDS ORDERED: magnesium 2GM in 50ml NS 50 ML IV PRN (00:35)
[2024-03-01] MEDS ORDERED: ASPI81TA52 PO (02:22)
[2024-03-01] MEDS ORDERED: ATOR80TA PO (02:23)
[2024-03-01] MEDS ORDERED: ISOS30TA84 PO (02:25)
[2024-03-01] MEDS ORDERED: LISI20TA28 PO (02:26)
[2024-03-01] MEDS ORDERED: METO-395 PO (02:28)
[2024-03-01] MEDS: HYDROcodone/acetaminophen 10/325mg tab PO PRN (03:28)
[2024-03-01] MEDS: morphine 2 MG/ML inj. syringe IV PRN (06:34)
[2024-03-01 07:13] LABS: D-DIMER 0.58 MG/L FEU (0-0.50)
[2024-03-01 07:52] LABS: CHLORIDE 110 MMOL/L (99-107); CHOL/HDL RATIO 2.5 (0.00-4.99); CHOLESTEROL 102 MG/DL (0-200); HDL CHOLESTEROL 41 MG/DL (35-60); LDL CHOLESTEROL 56 MG/DL (50-100); THYROID STIMULATING HORMONE 3.84 ulU/ml (0.34-4.50); TRIGLYCERIDES 41 MG/DL (20-135)
[2024-03-01] MEDS: K and/or MAG REPLACEMENT MC SCH (08:00)
[2024-03-01] MEDS ORDERED: metoprolol succinate 25mg (24-HOUR) SR. Tablet PO SCH (08:00)
[2024-03-01 08:01] LABS: BASOPHILS # (AUTO) 0.1 X10'3 (0-0.2); EOSINOPHILS # (AUTO) 0.2 X10'3 (0-0.9); EOSINOPHILS % (AUTO) 4.7 % (0-6); LYMPHOCYTES # (AUTO) 1.3 X10'3 (1.1-4.8); LYMPHOCYTES % (AUTO) 25.1 % (21-51); MEAN PLATELET VOLUME 8.9 FL (7.4-10.4); MONOCYTES # (AUTO) 0.6 X10'3 (0-0.9); MONOCYTES % (AUTO) 10.8 % (2-12); NEUTROPHILS # (AUTO) 3.1 X10'3 (1.8-7.7); NEUTROPHILS % (AUTO) 58.4 % (42-75); PLATELET COUNT 342 X10'3 (140-440); RED BLOOD COUNT 5.09 X10'6 (4.70-6.10); RED CELL DISTRIBUTION WIDTH 24.8 % (11.5-14.5); WHITE BLOOD COUNT 5.2 X10'3 (4.5-11.0)
[2024-03-01 08:07] LABS: ALANINE AMINOTRANSFERASE 17 U/L (12-78); ALBUMIN 3.1 G/DL (3.4-5.0); ALBUMIN/GLOBULIN RATIO 0.9 (1.1-1.5); ALKALINE PHOSPHATASE 117 IU/L (46-116); ANION GAP 8 (8-16); ASPARTATE AMINO TRANSFERASE 10 U/L (10-37); BILIRUBIN,TOTAL 0.4 MG/DL (0.1-1.0); BLOOD UREA NITROGEN 11 MG/DL (7-18); BUN/CREATININE RATIO 14.1 (10.0-20.0); CALCIUM 8.2 MG/DL (8.5-10.1); CREATININE 0.78 MG/DL (0.60-1.10); GLUCOSE 88 MG/DL (70-104); SODIUM 143 MMOL/L (135-145); TOTAL CARBON DIOXIDE 25.3 MMOL/L (24-32); TOTAL PROTEIN 6.7 G/DL (6.4-8.2); eCRCL 90 ML/MIN; eGFR > 90 ML/MIN
[2024-03-01] MEDS: isosorbide mononitrate 30mg tab.SR.24H PO SCH (08:39)
[2024-03-01] MEDS: ticagrelor 90mg tablet PO SCH (08:39)
[2024-03-01] MEDS: enoxaparin 40mg/0.4ml syringe SUBCUT SCH (08:39)
[2024-03-01] MEDS: lisinopril 5mg tablet PO SCH (08:40)
[2024-03-01] MEDS: pantoprazole 40mg Tablet.DR PO SCH ×2 (08:40→15:50)
[2024-03-01] MEDS: aspirin 81mg, enteric-coated 1 TAB TABLET.DR PO SCH (08:40)
[2024-03-01] MEDS: atorvastatin 20mg tablet PO SCH (08:41)
[2024-03-01 09:25] LABS: HEMOGLOBIN 10.6 g/dl (14.0-17.9)
[2024-03-01 09:26] LABS: HEMATOCRIT 33.1 % (42.0-52.0); MEAN CORPUSCULAR HEMOGLOBIN 20.9 PG (27.0-31.0); MEAN CORPUSCULAR HGB CONC 32.1 g/dL (33.0-36.5); MEAN CORPUSCULAR VOLUME 65.2 FL (78-98)
[2024-03-01 09:28] LABS: BILIRUBIN,URINE NEGATIVE (Neg); CLARITY,URINE SLIGHTLY CLOUDY (Clear); COLOR,URINE YELLOW (Yellow); GLUCOSE, URINE NEGATIVE (Neg); KETONES,URINE NEGATIVE (Neg); LEUKOCYTE ESTERASE ,URINE NEGATIVE (Neg); NITRITES, URINE NEGATIVE (Neg); OCCULT BLOOD,URINE TRACE-INTACT (Neg); PROTEIN,URINE NEGATIVE (Neg); UROBILINOGEN,URINE 0.2 E.U/dL (0.2-1.0)
[2024-03-01 09:35] LABS: UA COLLECTION TYPE NON-SPECIFIED
[2024-03-01 09:36] LABS: SQUAMOUS EPITHELIAL CELL,UR FEW /LPF (FEW)
[2024-03-01 09:37] LABS: HYALINE CASTS 0-3 /LPF (NEGATIVE); MUCUS STRANDS MODERATE /LPF (Neg)
[2024-03-01 09:38] LABS: BACTERIA,URINE FEW /HPF (Neg)
[2024-03-01 10:04] LABS: URINE AMPHETAMINE SCREEN NEGATIVE (Neg); URINE BARBITUATE SCREEN NEGATIVE (Neg); URINE BENZODIAZEPINES SCREEN NEGATIVE (Neg); URINE CANNABINOID SCREEN NEGATIVE (Neg); URINE COCAINE SCREEN NEGATIVE (Neg); URINE METHADONE SCREEN NEGATIVE (Neg); URINE OPIATE SCREEN POSITIVE (Neg); URINE PHENCYCLIDINE SCREEN NEGATIVE (Neg)
[2024-03-01] MEDS: HYDROcodone/acetaminophen 5mg/325mg tablet PO PRN (12:14)
[2024-03-01] MEDS ORDERED: ticagrelor 90mg tablet PO SCH (20:00)
[2024-03-01] MEDS ORDERED: non-formulary drug (Atorvastatin Calcium (Lipitor) 1 TAB) PO SCH (21:00)
[2024-03-02 02:00] VITALS: BP 111/67; PULSE 72; RESP 16; TEMP 98.1; O2SAT 98
[2024-03-02 06:00] VITALS: BP 131/77; PULSE 58; RESP 15; TEMP 97.6; O2SAT 98
[2024-03-02] MEDS: isosorbide mononitrate 30mg tab.SR.24H PO SCH (07:48)
[2024-03-02 08:00] VITALS: RESP 22; O2SAT 98
[2024-03-02] MEDS ORDERED: aspirin 81mg, enteric-coated 1 TAB TABLET.DR PO SCH (08:00)
[2024-03-02] MEDS ORDERED: pantoprazole 40mg Tablet.DR PO SCH (08:00)
[2024-03-02] MEDS ORDERED: lisinopril 20mg tablet PO SCH (08:00)
[2024-03-02] MEDS ORDERED: isosorbide mononitrate 30mg tab.SR.24H PO SCH (08:00)
[2024-03-02] MEDS: sertraline 50mg tablet PO SCH (09:04)
[2024-03-02 09:05] LABS: BASOPHILS # (AUTO) 0.1 X10'3 (0-0.2); HEMOGLOBIN 11.4 g/dl (14.0-17.9); WHITE BLOOD COUNT 5.5 X10'3 (4.5-11.0)
[2024-03-02 09:07] LABS: PROTHROMBIN TIME 10.5 SECONDS (9.0-12.0)
[2024-03-02 09:16] LABS: BASOPHILS % (AUTO) 1.6 % (0-1); EOSINOPHILS # (AUTO) 0.3 X10'3 (0-0.9); EOSINOPHILS % (AUTO) 5.4 % (0-6); LYMPHOCYTES # (AUTO) 0.9 X10'3 (1.1-4.8); LYMPHOCYTES % (AUTO) 17.2 % (21-51); MEAN PLATELET VOLUME 8.9 FL (7.4-10.4); MONOCYTES # (AUTO) 0.5 X10'3 (0-0.9); NEUTROPHILS # (AUTO) 3.6 X10'3 (1.8-7.7); NEUTROPHILS % (AUTO) 65.8 % (42-75); PLATELET COUNT 376 X10'3 (140-440); RED BLOOD COUNT 5.61 X10'6 (4.70-6.10)
[2024-03-02 09:27] LABS: ALANINE AMINOTRANSFERASE 20 U/L (12-78); ALBUMIN 3.3 G/DL (3.4-5.0); ALBUMIN/GLOBULIN RATIO 0.8 (1.1-1.5); ALKALINE PHOSPHATASE 113 IU/L (46-116); ANION GAP 8 (8-16); ASPARTATE AMINO TRANSFERASE 10 U/L (10-37); BILIRUBIN,TOTAL 0.6 MG/DL (0.1-1.0); BLOOD UREA NITROGEN 11 MG/DL (7-18); BUN/CREATININE RATIO 14.7 (10.0-20.0); CALCIUM 8.6 MG/DL (8.5-10.1); CHLORIDE 107 MMOL/L (99-107); CREATININE 0.75 MG/DL (0.60-1.10); GLUCOSE 85 MG/DL (70-104); PHOSPHORUS 4.6 MG/DL (2.3-4.5); POTASSIUM 3.7 MMOL/L (3.5-5.1); SODIUM 141 MMOL/L (135-145); TOTAL CARBON DIOXIDE 26.3 MMOL/L (24-32); TOTAL PROTEIN 7.5 G/DL (6.4-8.2); eCRCL 93 ML/MIN; eGFR > 90 ML/MIN
[2024-03-02 09:36] LABS: HEMATOCRIT 36.6 % (42.0-52.0); MEAN CORPUSCULAR HGB CONC 31.7 g/dL (33.0-36.5); MEAN CORPUSCULAR VOLUME 65.7 FL (78-98)
[2024-03-02 09:37] LABS: MEAN CORPUSCULAR HEMOGLOBIN 20.8 PG (27.0-31.0)
[2024-03-02 09:40] LABS: APTT 25 SECONDS (22-32)
[2024-03-02] MEDS ORDERED: METO-395 PO (10:34)
[2024-03-02] MEDS ORDERED: ISOS60TA71 PO (10:34)
[2024-03-02] MEDS ORDERED: PANT-47 PO (10:34)
[2024-03-02] MEDS: metoprolol succinate 25mg (24-HOUR) SR. Tablet PO SCH (10:48)
[2024-03-02 11:00] VITALS: BP 110/75; PULSE 59; RESP 16; TEMP 98.5; O2SAT 97
[2024-03-02 15:00] VITALS: BP 114/78; PULSE 65; RESP 17; TEMP 98; O2SAT 97
[2024-03-02 16:18] LABS: OCCULT BLOOD STOOL NEGATIVE (Neg)
== END 2024-03-02 15:14 | disposition home or self-care (01) | DRG 198 ==
LOC: ER 20:38 → UNDOADMIN 03-01 00:37 → ED HOLD 03-01 00:37 → PCU 3S 03-01 03:07
PROVIDERS: ADMIT Internal Medicine Critical Care Medicine; ATTEND Internal Medicine
DX: R07.89 Other chest pain (principal); I25.10 Atherosclerotic heart disease of native coronary artery without angina pectoris; D50.9 Iron deficiency anemia, unspecified; E78.5 Hyperlipidemia, unspecified; I10 Essential (primary) hypertension; K21.9 Gastro-esophageal reflux disease without esophagitis; I25.2 Old myocardial infarction; Z79.82 Long term (current) use of aspirin; Z79.899 Other long term (current) drug therapy; Z87.891 Personal history of nicotine dependence; Z95.5 Presence of coronary angioplasty implant and graft
CPT/HCPCS: 36415; 71045; 80053; 80061; 80305; 81001; 82272; 83735; 83880; 84100; 84439; 84443; 84484; 85025; 85379; 85610; 85730; 87081; 93005; 93306; 99285; G0378; J1650; J2270

== ENCOUNTER 2024-03-26 20:34 | Inpatient (IN) | payer MEDICAID, OTHER ==
[~2024-03-26] VITALS: Ht 162.6 cm; Wt 91.6 kg
[~2024-03-26 20:34] MED LIST changes: -ISOS30TA84 PO; +ISOS60TA71 PO; +LISI20TA28 PO; -LISI5TAB22 PO; +METO-395 PO; -METO-539 PO
[2024-03-26 21:12] LABS: BASOPHILS # (AUTO) 0.1 X10'3 (0-0.2); EOSINOPHILS % (AUTO) 5.4 % (0-6); HEMOGLOBIN 12.6 g/dl (14.0-17.9); LYMPHOCYTES # (AUTO) 1.5 X10'3 (1.1-4.8); MEAN CORPUSCULAR HEMOGLOBIN 21.6 PG (27.0-31.0); MONOCYTES # (AUTO) 0.7 X10'3 (0-0.9)
[2024-03-26 21:13] LABS: BASOPHILS % (AUTO) 1.5 % (0-1); EOSINOPHILS # (AUTO) 0.4 X10'3 (0-0.9); HEMATOCRIT 41.3 % (42.0-52.0); LYMPHOCYTES % (AUTO) 23.4 % (21-51); MEAN CORPUSCULAR HGB CONC 30.4 g/dL (33.0-36.5); MEAN CORPUSCULAR VOLUME 70.9 FL (78-98); MEAN PLATELET VOLUME 8.7 FL (7.4-10.4); MONOCYTES % (AUTO) 10.4 % (2-12); NEUTROPHILS # (AUTO) 3.9 X10'3 (1.8-7.7); NEUTROPHILS % (AUTO) 59.3 % (42-75); PLATELET COUNT 328 X10'3 (140-440); RED BLOOD COUNT 5.82 X10'6 (4.70-6.10); WHITE BLOOD COUNT 6.5 X10'3 (4.5-11.0)
[2024-03-26 21:42] LABS: ALBUMIN 3.5 G/DL (3.4-5.0); BLOOD UREA NITROGEN 13 MG/DL (7-18); BUN/CREATININE RATIO 13.8 (10.0-20.0); CALCIUM 8.1 MG/DL (8.5-10.1); CREATININE 0.94 MG/DL (0.60-1.10); PRO BRAIN NATRIURETIC PEPTIDE 194 PG/ML (0-125); SODIUM 143 MMOL/L (135-145); eCRCL 74 ML/MIN; eGFR 83 ML/MIN
[2024-03-26 22:02] LABS: GLUCOSE 116 MG/DL (70-104); POTASSIUM 3.7 MMOL/L (3.5-5.1)
[2024-03-26 22:03] LABS: ANION GAP 14 (8-16)
[2024-03-26 22:04] LABS: CHLORIDE 108 MMOL/L (99-107)
[2024-03-26 22:23] LABS: ANISOCYTOSIS 3+; MICROCYTOSIS 1+; PLATELET ESTIMATE NORMAL
[2024-03-26 22:27] LABS: ELLIPTOCYTES 1+; POIKILOCYTOSIS 3+; SPHEROCYTES 2+; TEAR DROP CELLS FEW
[2024-03-27] MEDS: ondansetron/PF 4mg/2ml inj IV ONE (00:46)
[2024-03-27] MEDS: nitroGLYCERIN 1gm ointment UD TP ONE (00:47)
[2024-03-27] MEDS: morphine 4 MG/ML inj SYRINge IV ONE (00:47)
[2024-03-27] MEDS: aspirin 325mg tablet PO ONE (00:47)
[2024-03-27] MEDS ORDERED: morphine 2 MG/ML inj. syringe IV PRN (02:40)
[2024-03-27] MEDS ORDERED: magnesium 4gm in 100ml NS 100 ML IV PRN (02:40)
[2024-03-27] MEDS ORDERED: magnesium hydroxide 30ml (MOM) UD suspension PO PRN (02:40)
[2024-03-27] MEDS ORDERED: potassium Cl 20 mEq SR tablet PO PRN ×2 (02:40)
[2024-03-27] MEDS ORDERED: acetaminophen 325mg tablet PO PRN (02:40)
[2024-03-27] MEDS ORDERED: potassium Cl 40MEQ/1/2NS 520ml 520 ML IV PRN (02:40)
[2024-03-27] MEDS ORDERED: magnesium 2GM in 50ml NS 50 ML IV PRN (02:40)
[2024-03-27] MEDS ORDERED: ondansetron/PF 4mg/2ml inj IV PRN (02:40)
[2024-03-27] MEDS ORDERED: magnesium Cl slow-release 64mg tablet PO PRN (02:40)
[2024-03-27] MEDS ORDERED: hydrOXYzine 25 MG tablet PO PRN (02:45)
[2024-03-27] MEDS ORDERED: nitroGLYCERIN 0.4mg SUBLingual tab SL PRN ×2 (02:45→03:50)
[2024-03-27] MEDS ORDERED: aminophylline 250mg/10ml inj. IV PRN (03:50)
[2024-03-27] MEDS ORDERED: metoprolol tartrate 1mg/ml inj IV PRN (03:50)
[2024-03-27] MEDS ORDERED: regadenoson 0.4mg/5ml syringe IV PRN (03:50)
[2024-03-27 08:00] VITALS: BP 128/68; PULSE 42; RESP 17; TEMP 97.8; O2SAT 98
[2024-03-27] MEDS: morphine 2 MG/ML inj. syringe IV PRN (08:24)
[2024-03-27] MEDS: docusate sod 100mg capsule PO PRN (09:43)
[2024-03-27] MEDS: isosorbide mononitrate 30mg tab.SR.24H PO SCH (09:43)
[2024-03-27] MEDS: aspirin 81mg, enteric-coated 1 TAB TABLET.DR PO SCH (09:43)
[2024-03-27] MEDS: pantoprazole 40mg Tablet.DR PO SCH (09:43)
[2024-03-27] MEDS: sertraline 50mg tablet PO SCH (09:44)
[2024-03-27] MEDS: metoprolol succinate 25mg (24-HOUR) SR. Tablet PO SCH (09:44)
[2024-03-27] MEDS: lisinopril 20mg tablet PO SCH (09:44)
[2024-03-27] MEDS: enoxaparin 40mg/0.4ml syringe SUBCUT SCH (09:45)
[2024-03-27] MEDS: ferrous sulfate 325mg tablet PO SCH (09:45)
[2024-03-27] MEDS: ticagrelor 90mg tablet PO SCH (09:46)
[2024-03-27] MEDS: K and/or MAG REPLACEMENT MC SCH (09:50)
[2024-03-27 11:00] VITALS: BP 119/73; PULSE 46; RESP 15; TEMP 98.2; O2SAT 97
[2024-03-27 15:00] VITALS: BP 114/65; PULSE 45; RESP 10; TEMP 97.8; O2SAT 100
[2024-03-27] MEDS: mag hydrox/Alum hydrox/simeth 30ml oral suspension PO PRN (15:15)
[2024-03-27 18:00] VITALS: BP 127/73; PULSE 53; RESP 15; TEMP 97.9; O2SAT 97
[2024-03-27] MEDS: atorvastatin 20mg tablet PO SCH (20:29)
[2024-03-27] MEDS ORDERED: atorvastatin 20mg tablet PO SCH (21:00)
[2024-03-28 02:00] VITALS: BP 126/75; PULSE 46; RESP 12; TEMP 97.5; O2SAT 97
[2024-03-28 06:00] VITALS: BP 107/73; PULSE 50; RESP 14; TEMP 97.3; O2SAT 96
[2024-03-28 06:59] LABS: BASOPHILS # (AUTO) 0.1 X10'3 (0-0.2); BASOPHILS % (AUTO) 0.9 % (0-1); EOSINOPHILS # (AUTO) 0.3 X10'3 (0-0.9); EOSINOPHILS % (AUTO) 4.5 % (0-6); LYMPHOCYTES # (AUTO) 1.1 X10'3 (1.1-4.8); LYMPHOCYTES % (AUTO) 16.8 % (21-51); MEAN PLATELET VOLUME 8.8 FL (7.4-10.4); MONOCYTES # (AUTO) 0.6 X10'3 (0-0.9); MONOCYTES % (AUTO) 8.5 % (2-12); NEUTROPHILS # (AUTO) 4.7 X10'3 (1.8-7.7); NEUTROPHILS % (AUTO) 69.3 % (42-75); PLATELET COUNT 275 X10'3 (140-440); WHITE BLOOD COUNT 6.8 X10'3 (4.5-11.0)
[2024-03-28 07:04] LABS: ALBUMIN 3.2 G/DL (3.4-5.0); ANION GAP 9 (8-16); BLOOD UREA NITROGEN 14 MG/DL (7-18); BUN/CREATININE RATIO 16.7 (10.0-20.0); CALCIUM 8.4 MG/DL (8.5-10.1); CHLORIDE 106 MMOL/L (99-107); CHOL/HDL RATIO 3.1 (0.00-4.99); CHOLESTEROL 113 MG/DL (0-200); CREATININE 0.84 MG/DL (0.60-1.10); GLUCOSE 83 MG/DL (70-104); HDL CHOLESTEROL 36 MG/DL (35-60); LDL CHOLESTEROL 68 MG/DL (50-100); POTASSIUM 3.7 MMOL/L (3.5-5.1); SODIUM 140 MMOL/L (135-145); TOTAL CARBON DIOXIDE 24.6 MMOL/L (24-32); TRIGLYCERIDES 74 MG/DL (20-135); eCRCL 83 ML/MIN; eGFR > 90 ML/MIN
[2024-03-28 07:58] LABS: HEMOGLOBIN 11.8 g/dl (14.0-17.9); MEAN CORPUSCULAR HEMOGLOBIN 22.1 PG (27.0-31.0); MEAN CORPUSCULAR HGB CONC 31.2 g/dL (33.0-36.5); MEAN CORPUSCULAR VOLUME 71.1 FL (78-98); RED BLOOD COUNT 5.34 X10'6 (4.70-6.10); RED CELL DISTRIBUTION WIDTH 27.2 % (11.5-14.5)
[2024-03-28 08:00] VITALS: RESP 16; O2SAT 98
[2024-03-28 08:02] LABS: PLATELET ESTIMATE NORMAL; POLYCHROMASIA FEW
[2024-03-28 08:03] LABS: ANISOCYTOSIS 3+; ELLIPTOCYTES 1+; HYPOCHROMASIA 1+; MICROCYTOSIS 1+; SPHEROCYTES FEW; STOMATOCYTES FEW; TARGET CELLS FEW; TEAR DROP CELLS 1+
[2024-03-28 08:08] VITALS: BP_SYST 107; PULSE 50
[2024-03-28] MEDS: lisinopril 5mg tablet PO SCH (08:08)
== END 2024-03-28 10:43 | disposition home or self-care (01) | DRG 198 ==
LOC: ER 20:35 → ED HOLD 03-27 02:43 → EDBEDREQ 03-27 05:24 → PCU 3S 03-27 07:40
PROVIDERS: ADMIT Internal Medicine Critical Care Medicine; ATTEND Internal Medicine
DX: I25.110 Atherosclerotic heart disease of native coronary artery with unstable angina pectoris (principal); E66.9 Obesity, unspecified; E78.5 Hyperlipidemia, unspecified; I10 Essential (primary) hypertension; Z68.34 Body mass index [BMI] 34.0-34.9, adult; R07.89 Other chest pain; F15.90 Other stimulant use, unspecified, uncomplicated; M19.09 Primary osteoarthritis, other specified site; Z79.02 Long term (current) use of antithrombotics/antiplatelets; Z87.891 Personal history of nicotine dependence; Z83.3 Family history of diabetes mellitus; Z79.899 Other long term (current) drug therapy; Z88.6 Allergy status to analgesic agent; Z82.49 Family history of ischemic heart disease and other diseases of the circulatory system; I25.2 Old myocardial infarction; Z98.61 Coronary angioplasty status; Z88.5 Allergy status to narcotic agent; Z88.8 Allergy status to other drugs, medicaments and biological substances
CPT/HCPCS: 36415; 71045; 80048; 80061; 83036; 83880; 84484; 85008; 85025; 87081; 93005; 93308; 96374; 96375; 99285; G0378; J1650; J2270; J2405

== ENCOUNTER 2024-05-12 09:22 | Emergency (ER) | payer MEDICAID, OTHER ==
[~2024-05-12] VITALS: Ht 172.7 cm; Wt 80.0 kg
[~2024-05-12 09:22] MED LIST changes: -ISOS60TA71 PO
[2024-05-12 09:55] LABS: BASOPHILS # (AUTO) 0.1 X10'3 (0-0.2); BASOPHILS % (AUTO) 1.1 % (0-1); EOSINOPHILS # (AUTO) 0.3 X10'3 (0-0.9); EOSINOPHILS % (AUTO) 4.3 % (0-6); HEMATOCRIT 43.8 % (42.0-52.0); HEMOGLOBIN 13.7 g/dl (14.0-17.9); LYMPHOCYTES # (AUTO) 1.4 X10'3 (1.1-4.8); LYMPHOCYTES % (AUTO) 21.4 % (21-51); MEAN CORPUSCULAR HGB CONC 31.2 g/dL (33.0-36.5); MEAN CORPUSCULAR VOLUME 76.8 FL (78-98); MEAN PLATELET VOLUME 8.5 FL (7.4-10.4); MONOCYTES # (AUTO) 0.8 X10'3 (0-0.9); MONOCYTES % (AUTO) 11.5 % (2-12); NEUTROPHILS % (AUTO) 61.7 % (42-75); PLATELET COUNT 295 X10'3 (140-440); RED CELL DISTRIBUTION WIDTH 26.1 % (11.5-14.5); WHITE BLOOD COUNT 6.5 X10'3 (4.5-11.0)
[2024-05-12 10:09] LABS: ALBUMIN 3.7 G/DL (3.4-5.0); ANION GAP 11 (8-16); BLOOD UREA NITROGEN 12 MG/DL (7-18); BUN/CREATININE RATIO 14.8 (10.0-20.0); CALCIUM 8.7 MG/DL (8.5-10.1); CHLORIDE 107 MMOL/L (99-107); CREATININE 0.81 MG/DL (0.60-1.10); GLUCOSE 122 MG/DL (70-104); POTASSIUM 3.5 MMOL/L (3.5-5.1); PRO BRAIN NATRIURETIC PEPTIDE 179 PG/ML (0-125); SODIUM 141 MMOL/L (135-145); eCRCL 100 ML/MIN; eGFR > 90 ML/MIN
[2024-05-12 10:20] LABS: PLATELET ESTIMATE NORMAL
[2024-05-12 10:22] LABS: ANISOCYTOSIS 3+; MICROCYTOSIS 1+
[2024-05-12 12:22] VITALS: BP 140/98; PULSE 55; RESP 16; TEMP 98.8; O2SAT 98
== END 2024-05-12 12:24 | disposition home or self-care (01) ==
LOC: ER 09:22
DX: R07.89 Other chest pain (principal); I25.10 Atherosclerotic heart disease of native coronary artery without angina pectoris; I25.2 Old myocardial infarction; F15.90 Other stimulant use, unspecified, uncomplicated; Z98.61 Coronary angioplasty status; Z88.8 Allergy status to other drugs, medicaments and biological substances; Z79.899 Other long term (current) drug therapy; Z79.2 Long term (current) use of antibiotics
CPT/HCPCS: 36415; 71045; 80048; 83880; 84484; 85008; 85025; 93005; 99285

== ENCOUNTER 2024-07-15 14:35 | Emergency (ER) | payer MEDICAID, OTHER ==
[~2024-07-15] VITALS: Ht 162.6 cm; Wt 89.3 kg
[2024-07-15 15:23] LABS: BASOPHILS # (AUTO) 0.1 X10'3 (0-0.2); BASOPHILS % (AUTO) 0.7 % (0-1); EOSINOPHILS # (AUTO) 0.5 X10'3 (0-0.9); EOSINOPHILS % (AUTO) 5.6 % (0-6); HEMATOCRIT 36.9 % (42.0-52.0); HEMOGLOBIN 11.1 g/dl (14.0-17.9); LYMPHOCYTES # (AUTO) 0.8 X10'3 (1.1-4.8); LYMPHOCYTES % (AUTO) 8.8 % (21-51); MEAN CORPUSCULAR HEMOGLOBIN 21.7 PG (27.0-31.0); MEAN CORPUSCULAR HGB CONC 30.1 g/dL (33.0-36.5); MEAN CORPUSCULAR VOLUME 72.1 FL (78-98); MEAN PLATELET VOLUME 8.1 FL (7.4-10.4); MONOCYTES % (AUTO) 11.3 % (2-12); NEUTROPHILS # (AUTO) 6.5 X10'3 (1.8-7.7); NEUTROPHILS % (AUTO) 73.6 % (42-75); PLATELET COUNT 322 X10'3 (140-440); RED BLOOD COUNT 5.12 X10'6 (4.70-6.10); RED CELL DISTRIBUTION WIDTH 17.9 % (11.5-14.5); WHITE BLOOD COUNT 8.8 X10'3 (4.5-11.0)
[2024-07-15] MEDS ORDERED: NO HOME MEDS (15:27)
[2024-07-15 15:46] LABS: ALBUMIN 3.5 G/DL (3.4-5.0); ANION GAP 8 (8-16); BLOOD UREA NITROGEN 10 MG/DL (7-18); BUN/CREATININE RATIO 13.3 (10.0-20.0); CALCIUM 8.4 MG/DL (8.5-10.1); CHLORIDE 109 MMOL/L (99-107); CREATININE 0.75 MG/DL (0.60-1.10); GLUCOSE 95 MG/DL (70-104); POTASSIUM 3.5 MMOL/L (3.5-5.1); PRO BRAIN NATRIURETIC PEPTIDE 116 PG/ML (0-125); SODIUM 141 MMOL/L (135-145); TOTAL CARBON DIOXIDE 24.1 MMOL/L (24-32); eCRCL 93 ML/MIN; eGFR > 90 ML/MIN
[2024-07-15 15:54] LABS: ANISOCYTOSIS 1+; MICROCYTOSIS 1+; PLATELET ESTIMATE NORMAL
[2024-07-15 15:55] LABS: ELLIPTOCYTES FEW; HYPOCHROMASIA 2+; TARGET CELLS FEW
[2024-07-15] MEDS: HYDROcodone/acetaminophen 5mg/325mg tablet PO ONE (17:22)
[2024-07-15 17:43] VITALS: BP 135/93; PULSE 52; RESP 12; TEMP 98.4; O2SAT 99
== END 2024-07-15 17:45 | disposition home or self-care (01) ==
LOC: ER 14:35
DX: R07.89 Other chest pain (principal); I25.10 Atherosclerotic heart disease of native coronary artery without angina pectoris; F15.90 Other stimulant use, unspecified, uncomplicated; Z88.6 Allergy status to analgesic agent
CPT/HCPCS: 36415; 71045; 80048; 83880; 84484; 85008; 85025; 93005; 99285; A4615

== ENCOUNTER 2024-08-09 16:05 | Inpatient (IN) | payer MEDICAID, OTHER ==
[~2024-08-09] VITALS: Ht 165.1 cm; Wt 97.0 kg
[~2024-08-09 16:05] MED LIST changes: -ASPI81TA52 PO; -ATOR80TA PO; -DOCU-391 PO; -FERR325T29 PO; -HYDR-3686 PO; -LISI20TA28 PO; -METO-395 PO; -NITR0.4T48; +NO HOME MEDS; -PANT-47 PO; -SERT-433; -TICA90TA2 PO
[2024-08-09 20:12] LABS: ALANINE AMINOTRANSFERASE 18 U/L (12-78); ALBUMIN 3.5 G/DL (3.4-5.0); ALBUMIN/GLOBULIN RATIO 0.9 (1.1-1.5); ALKALINE PHOSPHATASE 112 IU/L (46-116); ANION GAP 10 (8-16); ASPARTATE AMINO TRANSFERASE 13 U/L (10-37); BILIRUBIN,TOTAL 0.4 MG/DL (0.1-1.0); BLOOD UREA NITROGEN 8 MG/DL (7-18); BUN/CREATININE RATIO 9.6 (10.0-20.0); CHLORIDE 108 MMOL/L (99-107); CREATININE 0.83 MG/DL (0.60-1.10); GLUCOSE 89 MG/DL (70-104); POTASSIUM 3.6 MMOL/L (3.5-5.1); SODIUM 141 MMOL/L (135-145); TOTAL CARBON DIOXIDE 22.9 MMOL/L (24-32); TOTAL PROTEIN 7.3 G/DL (6.4-8.2); eGFR > 90 ML/MIN
[2024-08-09 20:20] LABS: PRO BRAIN NATRIURETIC PEPTIDE 141 PG/ML (0-125)
[2024-08-09] MEDS: mag hydrox/Alum hydrox/simeth 30ml oral suspension PO ONE (20:38)
[2024-08-09] MEDS: LIDOcaine 2% Viscous 15ml cup MM ONE (20:38)
[2024-08-09] MEDS: pantoprazole 40mg Tablet.DR PO ONE (20:40)
[2024-08-09] MEDS: famotidine 20mg tablet PO ONE (20:41)
[2024-08-09] MEDS: ondansetron 4mg rapidly disintigrating tab PO ONE (20:41)
[2024-08-09] MEDS: meclizine 12.5mg tablet PO ONE (20:41)
[2024-08-09 20:58] LABS: BASOPHILS # (AUTO) 0.1 X10'3 (0-0.2); BASOPHILS % (AUTO) 1.1 % (0-1); EOSINOPHILS # (AUTO) 0.1 X10'3 (0-0.9); EOSINOPHILS % (AUTO) 0.9 % (0-6); HEMOGLOBIN 8.3 g/dl (14.0-17.9); LYMPHOCYTES # (AUTO) 1.1 X10'3 (1.1-4.8); LYMPHOCYTES % (AUTO) 13.2 % (21-51); MEAN PLATELET VOLUME 8.3 FL (7.4-10.4); MONOCYTES # (AUTO) 0.5 X10'3 (0-0.9); MONOCYTES % (AUTO) 5.9 % (2-12); NEUTROPHILS # (AUTO) 6.8 X10'3 (1.8-7.7); NEUTROPHILS % (AUTO) 78.9 % (42-75); PLATELET COUNT 384 X10'3 (140-440); RED BLOOD COUNT 3.95 X10'6 (4.70-6.10); WHITE BLOOD COUNT 8.6 X10'3 (4.5-11.0)
[2024-08-09 20:59] LABS: HEMATOCRIT 26.4 % (42.0-52.0); MEAN CORPUSCULAR HGB CONC 31.3 g/dL (33.0-36.5); RED CELL DISTRIBUTION WIDTH 17.3 % (11.5-14.5)
[2024-08-09 21:54] LABS: ANISOCYTOSIS 1+; HYPOCHROMASIA 2+; MICROCYTOSIS 2+; PLATELET ESTIMATE NORMAL
[2024-08-09 21:55] LABS: BURR CELLS FEW; ELLIPTOCYTES FEW; TARGET CELLS FEW
[2024-08-09] MEDS: pantoprazole 40 MG vial IV ONE (23:26)
[2024-08-09] MEDS ORDERED: magnesium Cl slow-release 64mg tablet PO PRN (23:55)
[2024-08-09] MEDS ORDERED: magnesium hydroxide 30ml (MOM) UD suspension PO PRN (23:55)
[2024-08-09] MEDS ORDERED: ondansetron/PF 4mg/2ml inj IV PRN (23:55)
[2024-08-09] MEDS ORDERED: pantoprazole 40mg IV 80 MG in normal saline 100ml IV soln 100 ML IV ONE (23:55)
[2024-08-09] MEDS ORDERED: potassium Cl 40MEQ/1/2NS 520ml 520 ML IV PRN (23:55)
[2024-08-09] MEDS ORDERED: magnesium sulf-water 2g/50mL 50 ML IV PRN (23:55)
[2024-08-09] MEDS ORDERED: magnesium sulf-water 4G/100mL 100 ML IV PRN (23:55)
[2024-08-09] MEDS ORDERED: potassium Cl 20 mEq SR tablet PO PRN ×2 (23:55)
[2024-08-10] VITALS (22 sets, daily range): BP systolic 94–120; BP diastolic 56–78; PULSE 52–79; RESP 11–19; TEMP 97.1–98; O2SAT 90–98
[2024-08-10] MEDS: pantoprazole 40MG/NS 100ML BAG 100 ML IV SCH (01:34)
[2024-08-10] MEDS: normal saline 1000ml 1,000 ML IV SCH (01:36)
[2024-08-10] MEDS: K and/or MAG REPLACEMENT MC SCH (06:47)
[2024-08-10] MEDS: aspirin 81mg, enteric-coated 1 TAB TABLET.DR PO SCH (07:35)
[2024-08-10] MEDS: docusate sod 100mg capsule PO SCH (07:40)
[2024-08-10] MEDS: metoprolol succinate 25mg (24-HOUR) SR. Tablet PO SCH (07:43)
[2024-08-10] MEDS: lisinopril 5mg tablet PO SCH (07:45)
[2024-08-10 07:49] LABS: BASOPHILS # (AUTO) 0.1 X10'3 (0-0.2); BASOPHILS % (AUTO) 1.1 % (0-1); EOSINOPHILS # (AUTO) 0.1 X10'3 (0-0.9); EOSINOPHILS % (AUTO) 2.4 % (0-6); HEMATOCRIT 25.2 % (42.0-52.0); HEMOGLOBIN 7.5 g/dl (14.0-17.9); LYMPHOCYTES # (AUTO) 1.3 X10'3 (1.1-4.8); LYMPHOCYTES % (AUTO) 20.7 % (21-51); MEAN CORPUSCULAR HEMOGLOBIN 20.6 PG (27.0-31.0); MEAN CORPUSCULAR HGB CONC 29.7 g/dL (33.0-36.5); MEAN CORPUSCULAR VOLUME 69.3 FL (78-98); MEAN PLATELET VOLUME 8.2 FL (7.4-10.4); MONOCYTES # (AUTO) 0.6 X10'3 (0-0.9); MONOCYTES % (AUTO) 9.5 % (2-12); NEUTROPHILS % (AUTO) 66.3 % (42-75); PLATELET COUNT 296 X10'3 (140-440); RED BLOOD COUNT 3.64 X10'6 (4.70-6.10); RED CELL DISTRIBUTION WIDTH 17.7 % (11.5-14.5); WHITE BLOOD COUNT 6.1 X10'3 (4.5-11.0)
[2024-08-10 07:51] LABS: ALANINE AMINOTRANSFERASE 15 U/L (12-78); ALBUMIN 2.9 G/DL (3.4-5.0); ALBUMIN/GLOBULIN RATIO 0.9 (1.1-1.5); ALKALINE PHOSPHATASE 94 IU/L (46-116); ANION GAP 6 (8-16); ASPARTATE AMINO TRANSFERASE 9 U/L (10-37); BILIRUBIN,TOTAL 0.6 MG/DL (0.1-1.0); BLOOD UREA NITROGEN 8 MG/DL (7-18); BUN/CREATININE RATIO 9.8 (10.0-20.0); CALCIUM 7.7 MG/DL (8.5-10.1); CHLORIDE 111 MMOL/L (99-107); CREATININE 0.82 MG/DL (0.60-1.10); GLUCOSE 90 MG/DL (70-104); MAGNESIUM 2.1 MG/DL (1.5-2.4); POTASSIUM 3.7 MMOL/L (3.5-5.1); SODIUM 142 MMOL/L (135-145); TOTAL CARBON DIOXIDE 25.1 MMOL/L (24-32); TOTAL PROTEIN 6.1 G/DL (6.4-8.2); eCRCL 89 ML/MIN; eGFR > 90 ML/MIN
[2024-08-10] MEDS: atorvastatin 20mg tablet PO SCH (07:58)
[2024-08-10] MEDS: isosorbide mononitrate 30mg tab.SR.24H PO SCH (07:58)
[2024-08-10 08:03] LABS: PROTHROMBIN TIME 10.7 SECONDS (9.0-12.0)
[2024-08-10 11:43] LABS: HEMATOCRIT 25.2 % (42.0-52.0); MEAN CORPUSCULAR HGB CONC 28.7 g/dL (33.0-36.5); MEAN CORPUSCULAR VOLUME 69.5 FL (78-98); MEAN PLATELET VOLUME 8.1 FL (7.4-10.4); PLATELET COUNT 307 X10'3 (140-440); RED BLOOD COUNT 3.63 X10'6 (4.70-6.10); RED CELL DISTRIBUTION WIDTH 17.4 % (11.5-14.5); WHITE BLOOD COUNT 4.5 X10'3 (4.5-11.0)
[2024-08-10 11:51] LABS: HEMOGLOBIN 7.3 g/dl (14.0-17.9)
[2024-08-10] MEDS ORDERED: LIDOcaine 2% Viscous 15ml cup ONE (12:16)
[2024-08-10] MEDS ORDERED: fentaNYL/PF 50MCG/1 ML 2ML syringe ONE (13:40)
[2024-08-10] MEDS ORDERED: MIDAZolam 1 MG/ML 5ML VIAL ONE (13:40)
[2024-08-10] MEDS ORDERED: simethicone 40mg/0.6ml oral drops 30ml ONE (14:02)
[2024-08-10 16:02] LABS: HEMATOCRIT 25.4 % (42.0-52.0); HEMOGLOBIN 7.4 g/dl (14.0-17.9); MEAN CORPUSCULAR HEMOGLOBIN 20.4 PG (27.0-31.0); MEAN CORPUSCULAR HGB CONC 29.3 g/dL (33.0-36.5); MEAN CORPUSCULAR VOLUME 69.6 FL (78-98); MEAN PLATELET VOLUME 8.1 FL (7.4-10.4); PLATELET COUNT 321 X10'3 (140-440); RED BLOOD COUNT 3.65 X10'6 (4.70-6.10); RED CELL DISTRIBUTION WIDTH 17.3 % (11.5-14.5); WHITE BLOOD COUNT 3.5 X10'3 (4.5-11.0)
[2024-08-10] MEDS: diatr meglu/diatrizoate 30ml oral sol.-(3 dose) bottle PO SCH (20:20)
[2024-08-11 00:20] VITALS: BP 107/64; PULSE 60; RESP 16; TEMP 97.3; O2SAT 99
[2024-08-11] MEDS: mag hydrox/Alum hydrox/simeth 30ml oral suspension PO PRN (01:06)
[2024-08-11 04:20] VITALS: BP 106/68; PULSE 67; RESP 17; TEMP 98.6; O2SAT 95
[2024-08-11 06:00] VITALS: BP 110/73; PULSE 60; RESP 15; TEMP 97.6; O2SAT 95
[2024-08-11 06:39] LABS: BASOPHILS # (AUTO) 0.1 X10'3 (0-0.2); BASOPHILS % (AUTO) 1.2 % (0-1); EOSINOPHILS # (AUTO) 0.2 X10'3 (0-0.9); EOSINOPHILS % (AUTO) 4.3 % (0-6); HEMATOCRIT 26.3 % (42.0-52.0); HEMOGLOBIN 7.8 g/dl (14.0-17.9); LYMPHOCYTES # (AUTO) 1.1 X10'3 (1.1-4.8); LYMPHOCYTES % (AUTO) 20.4 % (21-51); MEAN CORPUSCULAR HEMOGLOBIN 20.5 PG (27.0-31.0); MEAN CORPUSCULAR HGB CONC 29.6 g/dL (33.0-36.5); MEAN CORPUSCULAR VOLUME 69.3 FL (78-98); MEAN PLATELET VOLUME 8.4 FL (7.4-10.4); MONOCYTES # (AUTO) 0.6 X10'3 (0-0.9); MONOCYTES % (AUTO) 10.4 % (2-12); NEUTROPHILS # (AUTO) 3.5 X10'3 (1.8-7.7); NEUTROPHILS % (AUTO) 63.7 % (42-75); PLATELET COUNT 317 X10'3 (140-440); RED CELL DISTRIBUTION WIDTH 17.8 % (11.5-14.5); WHITE BLOOD COUNT 5.5 X10'3 (4.5-11.0)
[2024-08-11 07:00] LABS: ALANINE AMINOTRANSFERASE 15 U/L (12-78); ALBUMIN 2.9 G/DL (3.4-5.0); ALBUMIN/GLOBULIN RATIO 0.9 (1.1-1.5); ALKALINE PHOSPHATASE 101 IU/L (46-116); ANION GAP 7 (8-16); ASPARTATE AMINO TRANSFERASE 12 U/L (10-37); BILIRUBIN,TOTAL 0.3 MG/DL (0.1-1.0); BLOOD UREA NITROGEN 10 MG/DL (7-18); BUN/CREATININE RATIO 12.5 (10.0-20.0); CHLORIDE 109 MMOL/L (99-107); GLUCOSE 96 MG/DL (70-104); MAGNESIUM 2.1 MG/DL (1.5-2.4); SODIUM 142 MMOL/L (135-145); TOTAL CARBON DIOXIDE 25.6 MMOL/L (24-32); TOTAL PROTEIN 6.2 G/DL (6.4-8.2); eCRCL 91 ML/MIN; eGFR > 90 ML/MIN
[2024-08-11 08:00] VITALS: RESP 15; O2SAT 95
[2024-08-11] MEDS ORDERED: iohexol 300mg/ml 100ml inj. ONE (10:25)
[2024-08-11] MEDS: acetaminophen 325mg tablet PO PRN (10:27)
[2024-08-11 10:40] LABS: URINE AMPHETAMINE SCREEN NEGATIVE (Neg); URINE BARBITUATE SCREEN NEGATIVE (Neg); URINE BENZODIAZEPINES SCREEN POSITIVE (Neg); URINE CANNABINOID SCREEN NEGATIVE (Neg); URINE COCAINE SCREEN NEGATIVE (Neg); URINE METHADONE SCREEN NEGATIVE (Neg); URINE OPIATE SCREEN NEGATIVE (Neg); URINE PHENCYCLIDINE SCREEN NEGATIVE (Neg)
[2024-08-11 11:00] VITALS: BP 109/69; PULSE 64; RESP 15; TEMP 97.6; O2SAT 100
[2024-08-11] MEDS ORDERED: METO-395 PO (12:33)
[2024-08-11] MEDS ORDERED: DOCU100C38 PO (12:33)
[2024-08-11] MEDS ORDERED: LISI5TAB22 PO (12:33)
[2024-08-11] MEDS ORDERED: ISOS30TA84 PO (12:33)
[2024-08-11] MEDS ORDERED: TICA90TA PO (12:33)
[2024-08-11] MEDS ORDERED: POLY17PO10 PO (12:33)
[2024-08-11] MEDS ORDERED: ATOR20TA66 PO (12:33)
[2024-08-11] MEDS ORDERED: PANT-47 PO (17:45)
== END 2024-08-11 16:17 | disposition home or self-care (01) | DRG 244 ==
LOC: ER 16:06 → ED HOLD 23:28 → PCU 3S 08-10 08:25
PROVIDERS: ADMIT Internal Medicine Critical Care Medicine; ATTEND Family Medicine
PROC: 0DB68ZX Excision of Stomach, Via Natural or Artificial Opening Endoscopic, Diagnostic (ICD-10-PCS; principal; 2024-08-10)
PROC: 0DB78ZX Excision of Stomach, Pylorus, Via Natural or Artificial Opening Endoscopic, Diagnostic (ICD-10-PCS; 2024-08-10)
PROC: BW211ZZ Computerized Tomography (CT Scan) of Abdomen and Pelvis using Low Osmolar Contrast (ICD-10-PCS; 2024-08-11)
DX: K57.31 Diverticulosis of large intestine without perforation or abscess with bleeding (principal); D50.9 Iron deficiency anemia, unspecified; I25.10 Atherosclerotic heart disease of native coronary artery without angina pectoris; E78.5 Hyperlipidemia, unspecified; K44.9 Diaphragmatic hernia without obstruction or gangrene; K25.9 Gastric ulcer, unspecified as acute or chronic, without hemorrhage or perforation; I10 Essential (primary) hypertension; I25.2 Old myocardial infarction; Z83.3 Family history of diabetes mellitus; Z88.6 Allergy status to analgesic agent; Z87.891 Personal history of nicotine dependence; Z79.01 Long term (current) use of anticoagulants; Z91.199 Patient's noncompliance with other medical treatment and regimen due to unspecified reason
CPT/HCPCS: 36415; 43239; 71045; 71260; 74177; 76700; 80053; 80305; 83605; 83735; 83880; 84132; 84484; 85008; 85025; 85027; 85610; 87081; 93005; 96374; 99152; 99285; A4620; G0378; J2250; J2470; J3010; J7030; J8597; Q9963; Q9967

== ENCOUNTER 2024-12-15 15:21 | Emergency (ER) | payer MEDICAID, OTHER ==
[~2024-12-15] VITALS: Ht 162.6 cm; Wt 90.9 kg
[~2024-12-15 15:21] MED LIST changes: +ATOR20TA66 PO; +DOCU100C38 PO; +ISOS30TA84 PO; +LISI5TAB22 PO; +METO-395 PO; +PANT-47 PO; +TICA90TA PO
[2024-12-15 16:26] LABS: BASOPHILS # (AUTO) 0.1 X10'3 (0-0.2); BASOPHILS % (AUTO) 0.9 % (0-1); EOSINOPHILS # (AUTO) 0.2 X10'3 (0-0.9); EOSINOPHILS % (AUTO) 4.1 % (0-6); HEMATOCRIT 26.4 % (42.0-52.0); HEMOGLOBIN 7.4 g/dl (14.0-17.9); LYMPHOCYTES # (AUTO) 0.9 X10'3 (1.1-4.8); MEAN CORPUSCULAR HEMOGLOBIN 16.6 PG (27.0-31.0); MEAN CORPUSCULAR HGB CONC 28.2 g/dL (33.0-36.5); MEAN CORPUSCULAR VOLUME 58.9 FL (78-98); MEAN PLATELET VOLUME 8.5 FL (7.4-10.4); MONOCYTES # (AUTO) 0.6 X10'3 (0-0.9); MONOCYTES % (AUTO) 10.5 % (2-12); NEUTROPHILS % (AUTO) 68.5 % (42-75); PLATELET COUNT 385 X10'3 (140-440); RED BLOOD COUNT 4.47 X10'6 (4.70-6.10); RED CELL DISTRIBUTION WIDTH 25.6 % (11.5-14.5); WHITE BLOOD COUNT 5.9 X10'3 (4.5-11.0)
[2024-12-15 16:32] LABS: D-DIMER 2.12 MG/L FEU (0-0.50)
[2024-12-15 16:44] LABS: ALANINE AMINOTRANSFERASE 17 U/L (12-78); ALBUMIN 3.2 G/DL (3.4-5.0); ALBUMIN/GLOBULIN RATIO 0.9 (1.1-1.5); ALKALINE PHOSPHATASE 115 IU/L (46-116); ANION GAP 9 (8-16); ASPARTATE AMINO TRANSFERASE 5 U/L (10-37); BILIRUBIN,TOTAL 0.5 MG/DL (0.1-1.0); BLOOD UREA NITROGEN 5 MG/DL (7-18); BUN/CREATININE RATIO 6.3 (10.0-20.0); CALCIUM 8.4 MG/DL (8.5-10.1); CHLORIDE 110 MMOL/L (99-107); CREATININE 0.79 MG/DL (0.60-1.10); GLUCOSE 101 MG/DL (70-104); POTASSIUM 3.8 MMOL/L (3.5-5.1); SODIUM 145 MMOL/L (135-145); TOTAL CARBON DIOXIDE 26.4 MMOL/L (24-32); TOTAL PROTEIN 6.9 G/DL (6.4-8.2); eCRCL 88 ML/MIN; eGFR > 90 ML/MIN
[2024-12-15 16:59] LABS: ANISOCYTOSIS 4+; PLATELET ESTIMATE NORMAL
[2024-12-15 17:00] LABS: ELLIPTOCYTES 1+; HYPOCHROMASIA 4+; MICROCYTOSIS 4+; TARGET CELLS 1+
[2024-12-15 17:02] LABS: TEAR DROP CELLS 1+
[2024-12-15 17:03] LABS: ACANTHOCYTES FEW; SCHISTOCYTES FEW
[2024-12-15 17:05] LABS: POLYCHROMASIA 2+
[2024-12-15] MEDS ORDERED: iohexol 350MG/ML 100ml bottle IV ONE (17:40)
[2024-12-15] MEDS ORDERED: ACET-2615 PO (19:30)
[2024-12-15] MEDS ORDERED: TRAM50TA2 PO (19:30)
[2024-12-15] MEDS: acetaminophen 325mg tablet PO ONE (19:36)
[2024-12-15] MEDS: traMADol 50MG tablet PO ONE (19:36)
[2024-12-15 19:46] VITALS: BP 118/73; PULSE 66; RESP 17; TEMP 98.6; O2SAT 98
== END 2024-12-15 19:53 | disposition home or self-care (01) ==
LOC: ER 15:21
DX: I82.4Z2 Acute embolism and thrombosis of unspecified deep veins of left distal lower extremity (principal); R06.02 Shortness of breath; I25.10 Atherosclerotic heart disease of native coronary artery without angina pectoris; F15.90 Other stimulant use, unspecified, uncomplicated; Z98.890 Other specified postprocedural states; Z88.6 Allergy status to analgesic agent
CPT/HCPCS: 36415; 71275; 80053; 85008; 85025; 85379; 86885; 86900; 86901; 99285; Q9967

== ENCOUNTER 2024-12-31 15:15 | Emergency (ER) | payer MEDICAID ==
[~2024-12-31] VITALS: Ht 160 cm; Wt 92.0 kg
[~2024-12-31 15:15] MED LIST changes: +TRAM50TA2 PO
[2024-12-31 15:27] VITALS: TEMP 97.2
[2024-12-31 16:53] LABS: BASOPHILS # (AUTO) 0.1 X10'3 (0-0.2); BASOPHILS % (AUTO) 1.3 % (0-1); EOSINOPHILS # (AUTO) 0.1 X10'3 (0-0.9); EOSINOPHILS % (AUTO) 1.6 % (0-6); HEMATOCRIT 30.5 % (42.0-52.0); HEMOGLOBIN 8.5 g/dl (14.0-17.9); LYMPHOCYTES # (AUTO) 0.7 X10'3 (1.1-4.8); LYMPHOCYTES % (AUTO) 10.4 % (21-51); MEAN CORPUSCULAR HEMOGLOBIN 16.3 PG (27.0-31.0); MEAN CORPUSCULAR HGB CONC 27.9 g/dL (33.0-36.5); MEAN CORPUSCULAR VOLUME 58.4 FL (78-98); MEAN PLATELET VOLUME 8.9 FL (7.4-10.4); MONOCYTES # (AUTO) 0.4 X10'3 (0-0.9); MONOCYTES % (AUTO) 6.6 % (2-12); NEUTROPHILS # (AUTO) 5.1 X10'3 (1.8-7.7); NEUTROPHILS % (AUTO) 80.1 % (42-75); PLATELET COUNT 477 X10'3 (140-440); RED BLOOD COUNT 5.21 X10'6 (4.70-6.10); RED CELL DISTRIBUTION WIDTH 26.3 % (11.5-14.5); WHITE BLOOD COUNT 6.4 X10'3 (4.5-11.0)
[2024-12-31 16:59] LABS: ALANINE AMINOTRANSFERASE 17 U/L (12-78); ALBUMIN 3.7 G/DL (3.4-5.0); ALKALINE PHOSPHATASE 106 IU/L (46-116); ANION GAP 8 (8-16); ASPARTATE AMINO TRANSFERASE 8 U/L (10-37); BILIRUBIN,TOTAL 0.5 MG/DL (0.1-1.0); BLOOD UREA NITROGEN 11 MG/DL (7-18); BUN/CREATININE RATIO 19.3 (10.0-20.0); CALCIUM 8.4 MG/DL (8.5-10.1); CHLORIDE 109 MMOL/L (99-107); CREATININE 0.57 MG/DL (0.60-1.10); GLUCOSE 100 MG/DL (70-104); LIPASE 38 U/L (16-77); POTASSIUM 4.1 MMOL/L (3.5-5.1); SODIUM 141 MMOL/L (135-145); TOTAL CARBON DIOXIDE 24.3 MMOL/L (24-32); TOTAL PROTEIN 7.5 G/DL (6.4-8.2); eCRCL 116 ML/MIN; eGFR > 90 ML/MIN
[2024-12-31 17:18] LABS: HYPOCHROMASIA 3+; PLATELET ESTIMATE INCREASED; POLYCHROMASIA 1+
[2024-12-31 17:19] LABS: ANISOCYTOSIS 3+; ELLIPTOCYTES FEW; MICROCYTOSIS 3+; TARGET CELLS 1+; TEAR DROP CELLS FEW
[2024-12-31 17:20] LABS: SCHISTOCYTES FEW
[2024-12-31 22:52] LABS: BILIRUBIN,URINE NEGATIVE (Neg); CLARITY,URINE CLEAR (Clear); COLOR,URINE YELLOW (Yellow); GLUCOSE, URINE NEGATIVE (Neg); KETONES,URINE NEGATIVE (Neg); LEUKOCYTE ESTERASE ,URINE NEGATIVE (Neg); NITRITES, URINE NEGATIVE (Neg); OCCULT BLOOD,URINE NEGATIVE (Neg); PH,URINE 6.5 (4.8-8.0); PROTEIN,URINE TRACE mg/dl (Neg)
[2024-12-31 22:58] LABS: UA COLLECTION TYPE CLN CATCH MIDSTREAM
[2024-12-31 22:59] LABS: BACTERIA,URINE NONE SEEN /HPF (Neg); MUCUS STRANDS MODERATE /LPF (Neg); RBC,URINE 0-2 /HPF (0-2); SQUAMOUS EPITHELIAL CELL,UR NONE SEEN /LPF (FEW); WBC,URINE 0-4 /HPF (0-4)
[2024-12-31] MEDS ORDERED: MECL-302 PO (23:14)
[2024-12-31] MEDS: meclizine 12.5mg tablet PO ONE (23:25)
[2024-12-31 23:32] VITALS: BP 144/78; PULSE 81; RESP 14; O2SAT 98
== END 2024-12-31 23:33 | disposition home or self-care (01) ==
LOC: ER 15:16
DX: R42 Dizziness and giddiness (principal); I25.2 Old myocardial infarction; I25.10 Atherosclerotic heart disease of native coronary artery without angina pectoris; F15.90 Other stimulant use, unspecified, uncomplicated; D64.9 Anemia, unspecified; Z88.6 Allergy status to analgesic agent; Z79.899 Other long term (current) drug therapy
CPT/HCPCS: 36415; 70450; 80053; 81001; 83690; 85008; 85025; 93005; 99285; J8597

== ENCOUNTER 2025-02-11 14:32 | Inpatient (IN) | payer MEDICAID ==
[~2025-02-11] VITALS: Ht 162.6 cm; Wt 90.9 kg
[~2025-02-11 14:32] MED LIST changes: +MECL-302 PO; -TRAM50TA2 PO
[2025-02-11] MEDS: aspirin 81mg tab.chew PO ONE (14:52)
[2025-02-11] MEDS: nitroGLYCERIN 0.4mg SUBLingual tab SL PRN (14:53)
[2025-02-11 15:11] LABS: ALANINE AMINOTRANSFERASE 36 U/L (12-78); ALBUMIN 3.6 G/DL (3.4-5.0); ALKALINE PHOSPHATASE 107 IU/L (46-116); ANION GAP 9 (8-16); ASPARTATE AMINO TRANSFERASE 36 U/L (10-37); BILIRUBIN,TOTAL 0.9 MG/DL (0.1-1.0); BLOOD UREA NITROGEN 10 MG/DL (7-18); BUN/CREATININE RATIO 11.2 (10.0-20.0); CALCIUM 8.3 MG/DL (8.5-10.1); CHLORIDE 107 MMOL/L (99-107); CREATININE 0.89 MG/DL (0.60-1.10); GLUCOSE 103 MG/DL (70-104); POTASSIUM 3.5 MMOL/L (3.5-5.1); SODIUM 139 MMOL/L (135-145); TOTAL CARBON DIOXIDE 23.3 MMOL/L (24-32); TOTAL PROTEIN 7.1 G/DL (6.4-8.2); eCRCL 78 ML/MIN; eGFR 88 ML/MIN
[2025-02-11 15:20] LABS: HEMATOCRIT 29.2 % (42.0-52.0); HEMOGLOBIN 8.1 g/dl (14.0-17.9); MEAN CORPUSCULAR HEMOGLOBIN 16.6 PG (27.0-31.0); MEAN CORPUSCULAR HGB CONC 27.6 g/dL (33.0-36.5); MEAN PLATELET VOLUME 8.7 FL (7.4-10.4); PLATELET COUNT 399 X10'3 (140-440); PRO BRAIN NATRIURETIC PEPTIDE 396 PG/ML (0-125); RED BLOOD COUNT 4.86 X10'6 (4.70-6.10); RED CELL DISTRIBUTION WIDTH 22.3 % (11.5-14.5); WHITE BLOOD COUNT 10.9 X10'3 (4.5-11.0)
[2025-02-11] MEDS: nitroGLYCERIN 0.4mg/hour patch TD ONE (15:25)
[2025-02-11 15:46] LABS: ANISOCYTOSIS 3+; PLATELET ESTIMATE NORMAL; TOTAL CELLS COUNTED 100
[2025-02-11 15:47] LABS: ELLIPTOCYTES FEW; STOMATOCYTES FEW; TEAR DROP CELLS FEW
[2025-02-11 15:48] LABS: HYPOCHROMASIA 3+; MICROCYTOSIS 3+; POLYCHROMASIA 1+; TARGET CELLS FEW
[2025-02-11 16:21] LABS: ETHANOL < 10 MG/DL (<10); MAGNESIUM 1.8 MG/DL (1.5-2.4)
[2025-02-11 16:28] LABS: APTT 26 SECONDS (22-32); D-DIMER 1.07 MG/L FEU (0-0.50); INR 1.1 INR; PROTHROMBIN TIME 10.8 SECONDS (9.0-12.0)
[2025-02-11 17:05] LABS: URINE AMPHETAMINE SCREEN POSITIVE (Neg); URINE BARBITUATE SCREEN NEGATIVE (Neg); URINE BENZODIAZEPINES SCREEN NEGATIVE (Neg); URINE CANNABINOID SCREEN POSITIVE (Neg); URINE COCAINE SCREEN NEGATIVE (Neg); URINE METHADONE SCREEN NEGATIVE (Neg); URINE OPIATE SCREEN NEGATIVE (Neg); URINE PHENCYCLIDINE SCREEN NEGATIVE (Neg)
[2025-02-11] MEDS ORDERED: acetaminophen 325mg tablet PO PRN (17:40)
[2025-02-11] MEDS ORDERED: magnesium sulf-water 2g/50mL 50 ML IV PRN (17:40)
[2025-02-11] MEDS ORDERED: potassium Cl 20 mEq SR tablet PO PRN (17:40)
[2025-02-11] MEDS ORDERED: HYDROcodone/acetaminophen 5mg/325mg tablet PO PRN (17:40)
[2025-02-11] MEDS ORDERED: ondansetron/PF 4mg/2ml inj IV PRN (17:40)
[2025-02-11] MEDS ORDERED: magnesium Cl slow-release 64mg tablet PO PRN (17:40)
[2025-02-11] MEDS ORDERED: morphine 2 MG/ML inj. syringe IV PRN (17:40)
[2025-02-11] MEDS ORDERED: potassium Cl 40MEQ/1/2NS 520ml 520 ML IV PRN (17:40)
[2025-02-11] MEDS ORDERED: magnesium sulf-water 4G/100mL 100 ML IV PRN (17:40)
[2025-02-11] MEDS ORDERED: nitroGLYCERIN 0.4mg SUBLingual tab SL PRN (17:45)
[2025-02-11] MEDS ORDERED: aminophylline 250mg/10ml inj. IV PRN (17:45)
[2025-02-11] MEDS ORDERED: metoprolol tartrate 1mg/ml inj IV PRN (17:45)
[2025-02-11] MEDS ORDERED: aminophylline 500mg/20ml vial IV PRN (17:55)
[2025-02-11] MEDS: normal saline 1000ml 1,000 ML IV SCH (18:19)
[2025-02-11] MEDS ORDERED: ASPI-1265 PO (18:31)
[2025-02-11] MEDS ORDERED: SERT25TA PO (18:31)
[2025-02-11] MEDS ORDERED: APIX5TAB3 PO (18:31)
[2025-02-11] MEDS ORDERED: ATOR20TA66 PO (18:31)
[2025-02-11] MEDS: heparin, porcine 5000 units/ml vial SQ SCH (20:00)
[2025-02-11] MEDS: acetaminophen 325mg tablet PO PRN (20:07)
[2025-02-11] MEDS: morphine 2 MG/ML inj. syringe IV PRN (20:08)
[2025-02-12] VITALS (16 sets, daily range): BP systolic 96–128; BP diastolic 55–79; PULSE 58–91; RESP 14–21; TEMP 97.3–98.1; O2SAT 94–100
[2025-02-12 06:54] LABS: BASOPHILS # (AUTO) 0.1 X10'3 (0-0.2); BASOPHILS % (AUTO) 1.1 % (0-1); EOSINOPHILS # (AUTO) 0.6 X10'3 (0-0.9); EOSINOPHILS % (AUTO) 9.1 % (0-6); HEMATOCRIT 26.2 % (42.0-52.0); HEMOGLOBIN 7.2 g/dl (14.0-17.9); LYMPHOCYTES # (AUTO) 1.1 X10'3 (1.1-4.8); LYMPHOCYTES % (AUTO) 18.4 % (21-51); MEAN CORPUSCULAR HEMOGLOBIN 16.4 PG (27.0-31.0); MEAN CORPUSCULAR HGB CONC 27.4 g/dL (33.0-36.5); MEAN CORPUSCULAR VOLUME 59.8 FL (78-98); MEAN PLATELET VOLUME 8.7 FL (7.4-10.4); MONOCYTES # (AUTO) 0.7 X10'3 (0-0.9); MONOCYTES % (AUTO) 11.9 % (2-12); NEUTROPHILS # (AUTO) 3.6 X10'3 (1.8-7.7); NEUTROPHILS % (AUTO) 59.5 % (42-75); PLATELET COUNT 338 X10'3 (140-440); RED BLOOD COUNT 4.39 X10'6 (4.70-6.10); RED CELL DISTRIBUTION WIDTH 21.2 % (11.5-14.5); WHITE BLOOD COUNT 6.1 X10'3 (4.5-11.0)
[2025-02-12 06:55] LABS: ALANINE AMINOTRANSFERASE 29 U/L (12-78); ALBUMIN 2.9 G/DL (3.4-5.0); ALBUMIN/GLOBULIN RATIO 0.9 (1.1-1.5); ALKALINE PHOSPHATASE 92 IU/L (46-116); ANION GAP 8 (8-16); ASPARTATE AMINO TRANSFERASE 22 U/L (10-37); BILIRUBIN,TOTAL 0.5 MG/DL (0.1-1.0); BLOOD UREA NITROGEN 11 MG/DL (7-18); BUN/CREATININE RATIO 16.7 (10.0-20.0); CALCIUM 7.9 MG/DL (8.5-10.1); CHLORIDE 110 MMOL/L (99-107); CREATININE 0.66 MG/DL (0.60-1.10); GLUCOSE 101 MG/DL (70-104); POTASSIUM 3.2 MMOL/L (3.5-5.1); SODIUM 143 MMOL/L (135-145); TOTAL CARBON DIOXIDE 25.4 MMOL/L (24-32); eCRCL 105 ML/MIN; eGFR > 90 ML/MIN
[2025-02-12 07:31] LABS: ANISOCYTOSIS 3+; HYPOCHROMASIA 2+; MICROCYTOSIS 2+; PLATELET ESTIMATE NORMAL
[2025-02-12 07:32] LABS: POIKILOCYTOSIS FEW; POLYCHROMASIA FEW
[2025-02-12] MEDS: regadenoson 0.4mg/5ml syringe IV PRN (09:20)
[2025-02-12] MEDS: potassium Cl 20 mEq SR tablet PO PRN (20:13)
[2025-02-12] MEDS: HYDROcodone/acetaminophen 10/325mg tab PO PRN (20:14)
[2025-02-13 02:00] VITALS: BP 119/77; PULSE 75; RESP 16; TEMP 97.3; O2SAT 94
[2025-02-13 06:45] LABS: PLATELET COUNT 373 X10'3 (140-440); WHITE BLOOD COUNT 7.2 X10'3 (4.5-11.0)
[2025-02-13 06:59] LABS: ALANINE AMINOTRANSFERASE 19 U/L (12-78); ALBUMIN 3.1 G/DL (3.4-5.0); ALBUMIN/GLOBULIN RATIO 0.9 (1.1-1.5); ALKALINE PHOSPHATASE 93 IU/L (46-116); ANION GAP 7 (8-16); ASPARTATE AMINO TRANSFERASE 17 U/L (10-37); BILIRUBIN,TOTAL 0.4 MG/DL (0.1-1.0); BLOOD UREA NITROGEN 9 MG/DL (7-18); BUN/CREATININE RATIO 16.7 (10.0-20.0); CALCIUM 8.2 MG/DL (8.5-10.1); CHLORIDE 107 MMOL/L (99-107); CREATININE 0.54 MG/DL (0.60-1.10); GLUCOSE 80 MG/DL (70-104); POTASSIUM 3.9 MMOL/L (3.5-5.1); SODIUM 140 MMOL/L (135-145); TOTAL CARBON DIOXIDE 25.8 MMOL/L (24-32); TOTAL PROTEIN 6.5 G/DL (6.4-8.2); eCRCL 128 ML/MIN; eGFR > 90 ML/MIN
[2025-02-13 07:16] LABS: HEMATOCRIT 26.3 % (42.0-52.0); HEMOGLOBIN 7.8 g/dl (14.0-17.9); MEAN CORPUSCULAR HEMOGLOBIN 17.2 PG (27.0-31.0); MEAN CORPUSCULAR HGB CONC 29.9 g/dL (33.0-36.5); MEAN CORPUSCULAR VOLUME 57.5 FL (78-98); RED BLOOD COUNT 4.56 X10'6 (4.70-6.10)
[2025-02-13 07:17] LABS: RED CELL DISTRIBUTION WIDTH 21.7 % (11.5-14.5)
[2025-02-13 07:53] LABS: ANISOCYTOSIS 3+; MICROCYTOSIS 3+; PLATELET ESTIMATE NORMAL; TOTAL CELLS COUNTED 100
[2025-02-13 07:54] LABS: HYPOCHROMASIA 2+; POLYCHROMASIA 1+
[2025-02-13 07:55] LABS: SCHISTOCYTES FEW; TEAR DROP CELLS FEW
[2025-02-13 11:00] VITALS: BP 119/77; PULSE 75; RESP 16; TEMP 98.6; O2SAT 98
[2025-02-13 11:02] VITALS: RESP 16; O2SAT 98
[2025-02-13] MEDS: apixaban 5mg tablet PO SCH (14:59)
[2025-02-13] MEDS: sertraline 50mg tablet PO SCH (15:00)
[2025-02-13] MEDS: lisinopril 5mg tablet PO SCH (15:00)
[2025-02-13] MEDS: atorvastatin 20mg tablet PO SCH (15:00)
[2025-02-13] MEDS: meclizine 12.5mg tablet PO SCH (15:01)
[2025-02-13] MEDS: aspirin 81mg tab.chew PO SCH (15:01)
[2025-02-13 15:06] VITALS: BP 123/78; PULSE 77; RESP 16; TEMP 98; O2SAT 99
[2025-02-13] MEDS ORDERED: ticagrelor 90mg tablet PO SCH (20:00)
[2025-02-13] MEDS ORDERED: pantoprazole 40mg Tablet.DR PO SCH (20:00)
== END 2025-02-13 17:30 | disposition home or self-care (01) | DRG 198 ==
LOC: ER 14:33 → ED HOLD 17:42 → PCU 3S 02-12 00:55
PROVIDERS: ADMIT Internal Medicine; ATTEND Internal Medicine
PROC: 4A02XM4 Measurement of Cardiac Total Activity, External Approach (ICD-10-PCS; principal; 2025-02-12)
PROC: 3E033HZ Introduction of Radioactive Substance into Peripheral Vein, Percutaneous Approach (ICD-10-PCS; 2025-02-12)
DX: I25.119 Atherosclerotic heart disease of native coronary artery with unspecified angina pectoris (principal); D63.8 Anemia in other chronic diseases classified elsewhere; F15.10 Other stimulant abuse, uncomplicated; E87.6 Hypokalemia; Z20.822 Contact with and (suspected) exposure to COVID-19; Z79.01 Long term (current) use of anticoagulants; I25.2 Old myocardial infarction; Z79.82 Long term (current) use of aspirin; Z83.3 Family history of diabetes mellitus; Z88.6 Allergy status to analgesic agent
CPT/HCPCS: 36415; 71045; 78452; 80053; 80305; 80320; 83735; 83880; 84484; 85007; 85008; 85025; 85379; 85610; 85730; 87081; 87502; 87503; 87811; 93005; 93017; 93306; 93971; 96361; 96374; 97116; 97161; 99285; A6449; A9500; G0378; J1644; J2270; J2785; J7030; J8597

== ENCOUNTER 2025-03-27 07:53 | Inpatient (IN) | payer MEDICAID ==
[2025-03-27] VITALS (9 sets, daily range): BP systolic 99–124; BP diastolic 54–76; PULSE 59–72; RESP 12–22; TEMP 97.5–98.2; O2SAT 100
[~2025-03-27] VITALS: Ht 162.6 cm; Wt 81.3 kg
[~2025-03-27 07:53] MED LIST changes: +APIX5TAB3 PO; +ASPI-1265 PO; -DOCU100C38 PO; -ISOS30TA84 PO; -METO-395 PO; -NO HOME MEDS; +SERT25TA PO
--- NOTE | 2025-03-27 08:38 | Physician Documentation ---
History of Present Illness ~ Chief Complaint: Chest Pain Stated Complaint: CHEST PAIN/NAUSEA Time Seen by MD: 08:36 Primary Medical Doctor: DR GONZALEZ FROM [facility] Mode of Arrival: EMS HPI 54-year-old male history of CAD, DVT on Eliquis, anemia of chronic disease, methamphetamine use, CKD presenting for not feeling well. He reports eating a piece of chicken when he became short of breath. He denies cough or choking on anything. He denies any abdominal pain Reviewed discharge summary February 11, 2025 chest pain rule out ACS methamphetamine use, chronic stable angina Reviewed echocardiogram 03/04 normal LV size wall thickness, inferolateral apical septal hypokinesis EF 50-55% moderately dilated right ventricle PA systolic pressure 47 mmHg, Medication Reconciliation Allergies: Coded Allergies: ibuprofen (Verified Allergy, Unknown, 03/27/25) Scheduled Apixaban (Eliquis), 1 TAB PO DAILY, (Reported) Aspirin (Aspirin), 1 TAB PO DAILY, (Reported) Atorvastatin Calcium (LIPITOR tablet), 4 TAB PO DAILY, (Reported) Lisinopril (Lisinopril), 5 MG PO DAILY Meclizine HCl (Meclizine HCl), 1 TAB PO Q6H Pantoprazole Sodium (PROTONIX tablet), 40 MG PO BID Sertraline Hcl* (Zoloft*), 2 TAB PO DAILY, (Reported) Ticagrelor (Brilinta), 1 TAB PO Q12H Past Medical History Past Medical History: Coronary Artery Disease, Myocardial Infarction, GI Bleed Past Surgical History: noncontributory, angioplasty Other Past Surgical History: Mechanical thrombectomy 12/16/2023 Patient History: FH: diabetes mellitus FATHER brother brother brother High blood pressure FATHER Alcohol Use: None Drug Use: methamphetamine Lives In: Home Review of Systems All Other Systems at this time: Reviewed and Negative Physical Exam Vital Signs: RN Vital Signs have been reviewed: Yes, Temperature: 98.3, Source: Oral, Heart Rate: 72, Respiratory Rate: 15, BP: 102/61, Pulse Oximetry: 100, Weight: 81.300 Physical Exam Chronically ill-appearing Pulmonary clear to auscultation bilaterally Abdomen soft nontender Neuro awake alert oriented Progress Results/Orders Reviewed/noted all lab results: Yes Results/Orders Orders - RONNA SEE MD Chest,Single View (03/27/25 08:45) Monitor (5/18/25 08:45) Saline Lock (03/27/25 08:45) Oxygen (03/27/25 08:45) Culture Blood (03/27/25 08:49) Heart Healthy Diet (03/27/25 Dinner) Page Hospitalist (03/27/25 ) Transfusion Informed Consent (03/27/25 13:07) Page Hospitalist (03/27/25 13:07) Fill Out Med Reconciliation (03/27/25 13:07) Completed Orders - RONNA SEE MD Ondansetron Inj. (Zofran 4mg/2ml Vial) (03/27/25 08:40) Chest,Single View (03/27/25 08:45) Cbc/Diff (03/27/25 08:45) PBNP (03/27/25 08:45) Electrocardiogram (03/27/25 08:45) CMP (03/27/25 08:45) Hs Troponin I W Calculations (03/27/25 08:45) Hs Troponin I W Calculations (03/27/25 10:45) Hs Troponin I W Calculations (03/27/25 11:45) Urinalysis, Cult If Indicated (03/27/25 08:49) Procalcitonin (03/27/25 08:49) BMP (03/27/25 08:49) Normal Saline 1000ml (Sodium Chloride 10 (03/27/25 08:55) Man Diff (03/27/25 09:22) Type And Screen (03/27/25 13:06) Lrpc - No Active Bleeding (03/27/25 13:07) Ferritin (03/27/25 09:22) TSH (03/27/25 09:22) Vital Signs 03/27/25 03/27/25 03/27/25 03/27/25 07:57 08:10 08:35 09:39 Temp 98.3 Pulse 70 72 62 Resp 16 19 15 18 B/P (MAP) 100/64 102/61 (75) 98/69 (79) Pulse Ox 100 100 100 03/27/25 12:36 Pulse 76 Resp 16 B/P (MAP) 116/78 (91) Pulse Ox 99 Laboratory Tests Test 03/27/25 09:22 03/27/25 10:37 03/27/25 10:43 03/27/25 12:26 White Blood Count 9.5 Red Blood Count 4.20 L Hemoglobin 7.0 *L Hematocrit 22.9 L Mean Corpuscular Volume 54.6 L Mean Corpuscular Hemoglobin 16.8 L Mean Corpuscular Hemoglobin Concent 30.7 L Red Cell Distribution Width 19.0 H Platelet Count 349 Mean Platelet Volume 8.8 Neutrophils (%) (Auto) 84.6 H Lymphocytes (%) (Auto) 5.8 L Monocytes (%) (Auto) 6.9 Eosinophils (%) (Auto) 0.7 Basophils (%) (Auto) 2.0 H Neutrophils # (Auto) 8.0 H Lymphocytes # (Auto) 0.5 L Monocytes # (Auto) 0.7 Eosinophils # (Auto) 0.1 Basophils # (Auto) 0.2 CBC Comment Differential Total Cells Counted 100 Neutrophils % (Manual) 86.0 H Lymphocytes % (Manual) 7.0 L Monocytes % (Manual) 6.0 Eosinophils % (Manual) 1.0 Platelet Estimate Normal Red Blood Cell Morphology Perf Polychromasia 1+ Hypochromasia 2+ Basophilic Stippling Anisocytosis 2+ Microcytosis 3+ Tear Drop Cells Few Schistocytes Few Sodium Level 140 Potassium Level 3.5 Chloride Level 108 H Carbon Dioxide Level 24.6 Anion Gap 7 L Blood Urea Nitrogen 15 Creatinine 1.03 Estimated GFR/1.73 m2 75 BUN/Creatinine Ratio 14.6 Glucose Level 81 Calcium Level 8.0 L Ferritin 3 L Total Bilirubin 0.7 Aspartate Amino Transf (AST/SGOT) 20 Alanine Aminotransferase (ALT/SGPT) 19 Alkaline Phosphatase 97 Troponin I High Sensitivity 13 9 9 Pro-B-Type Natriuretic Peptide 223 H Total Protein 6.6 Albumin 3.5 Globulin 3.1 Albumin/Globulin Ratio 1.1 Procalcitonin < 0.05 Thyroid Stimulating Hormone (TSH) 1.08 Chemistry Comments Troponin I High Sens Percent Delta 30 0 Troponin I Hi Sens Absolute Change -4 0 Urine Specimen Description Urinal Urine Color Yellow Urine Clarity Clear Urine pH 6.0 Urine Specific [place] 1.010 Urine Protein Negative Urine Glucose (UA) Negative Urine Ketones Negative Urine Occult Blood Negative Urine Nitrite Negative Urine Bilirubin Negative Urine Urobilinogen 1.0 Urine Leukocyte Esterase Negative Urine Culture Indicated Not ind Volume Urine Centrifuged 10 ml Urine Comment Microbiology Date/Time Source Procedure Growth Status 03/27/25 09:30 Blood Arm Left Blood Culture - Preliminary NEGATIVE (LESS THAN 24 HOURS) Resulted EKG/XRAY/CT/US/VASC/MRI EKG : Additional Comment EKG independently interpreted by myself time 9:11 a.m. indication shortness of breath left axis deviation, right bundle branch block no ST or T-wave abnormalities Medical Decision Making Additional info obtained from: old records Findings Discharge summary Additional Information CHF, pneumonia, acute coronary syndrome, bronchitis Departure Disposition: ADMITTED INPATIENT Admitted to Inpatient Unit: to hospitalist Impression: Primary Impression: Anemia Referrals: NO PRIMARY CARE PROVIDER (PCP) Critical Care Note Total Time (mins): 30 Critical Care Note The very real possibility of a deterioration of this patient's condition required the highest level of my preparedness for sudden, emergent intervention. I provided critical care services, which included medication orders, frequent reevaluations of the patient's condition and response to treatment, ordering and reviewing test results, and discussing the case with various consultants. Excludes time spent performing separately billable procedures. The critical care time associated with the care of the patient was 30 minutes in the management of anemia requiring transfusion Signature Scribe Signature: magen Attestation: RONNA Pettit MD March 27, 2025 08:38
[2025-03-27] MEDS ORDERED: ringers solution, lacted 1,000 ML IV ONE (08:40)
[2025-03-27] MEDS: ondansetron/PF 4mg/2ml inj IV ONE (08:45)
[2025-03-27] MEDS: normal saline 1000ml 1,000 ML IV ONE (08:56)
--- NOTE | 2025-03-27 09:14 | ELECTROCARDIOGRAPH REPORT ---
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
--- NOTE | 2025-03-27 09:26 | RADIOLOGY REPORT ---
DI CHEST,SINGLE VIEW, HISTORY: CP COMPARISON: DI CHEST,SINGLE VIEW on DOS: 02/11/25, DI CHEST,SINGLE VIEW on DOS: 08/09/24, DI CHEST,SINGL E VIEW on DOS: 07/15/24 DI CHEST,SINGLE VIEW on DOS: 02/11/25, DI CHEST,SINGLE VIEW on DOS: 08/09/24, DI CHEST,SINGLE VIEW on DO S: 07/15/24 TECHNICAL DATA: 1 view of the chest was obtained. FINDINGS: Lines and tubes: None Cardiomediastinal silhouette: normal Pulmonary vasculature: normal Lung expansion: normal Lung airspace: normal Lung interstitium: normal Pleura: normal Pneumothorax: no Bones: Unremarkable Other: no IMPRESSION: No acute intrathoracic abnormality.
[2025-03-27 09:35] LABS: BASOPHILS # (AUTO) 0.2 X10'3 (0-0.2); EOSINOPHILS # (AUTO) 0.1 X10'3 (0-0.9)
[2025-03-27 09:36] LABS: EOSINOPHILS % (AUTO) 0.7 % (0-6); LYMPHOCYTES # (AUTO) 0.5 X10'3 (1.1-4.8); LYMPHOCYTES % (AUTO) 5.8 % (21-51); MEAN PLATELET VOLUME 8.8 FL (7.4-10.4); MONOCYTES # (AUTO) 0.7 X10'3 (0-0.9); MONOCYTES % (AUTO) 6.9 % (2-12); NEUTROPHILS % (AUTO) 84.6 % (42-75); PLATELET COUNT 349 X10'3 (140-440); WHITE BLOOD COUNT 9.5 X10'3 (4.5-11.0)
[2025-03-27 09:48] LABS: ALANINE AMINOTRANSFERASE 19 U/L (12-78); ALBUMIN 3.5 G/DL (3.4-5.0); ALBUMIN/GLOBULIN RATIO 1.1 (1.1-1.5); ALKALINE PHOSPHATASE 97 IU/L (46-116); ANION GAP 7 (8-16); ASPARTATE AMINO TRANSFERASE 20 U/L (10-37); BILIRUBIN,TOTAL 0.7 MG/DL (0.1-1.0); BLOOD UREA NITROGEN 15 MG/DL (7-18); BUN/CREATININE RATIO 14.6 (10.0-20.0); CHLORIDE 108 MMOL/L (99-107); CREATININE 1.03 MG/DL (0.60-1.10); GLUCOSE 81 MG/DL (70-104); POTASSIUM 3.5 MMOL/L (3.5-5.1); SODIUM 140 MMOL/L (135-145); TOTAL CARBON DIOXIDE 24.6 MMOL/L (24-32); TOTAL PROTEIN 6.6 G/DL (6.4-8.2); eCRCL 67 ML/MIN; eGFR 75 ML/MIN
[2025-03-27 09:55] LABS: PRO BRAIN NATRIURETIC PEPTIDE 223 PG/ML (0-125)
[2025-03-27 10:11] LABS: HEMATOCRIT 22.9 % (42.0-52.0); MEAN CORPUSCULAR HEMOGLOBIN 16.8 PG (27.0-31.0); MEAN CORPUSCULAR HGB CONC 30.7 g/dL (33.0-36.5); MEAN CORPUSCULAR VOLUME 54.6 FL (78-98)
[2025-03-27 10:50] LABS: BILIRUBIN,URINE NEGATIVE (Neg); CLARITY,URINE CLEAR (Clear); COLOR,URINE YELLOW (Yellow); GLUCOSE, URINE NEGATIVE (Neg); KETONES,URINE NEGATIVE (Neg); LEUKOCYTE ESTERASE ,URINE NEGATIVE (Neg); NITRITES, URINE NEGATIVE (Neg); OCCULT BLOOD,URINE NEGATIVE (Neg); PROTEIN,URINE NEGATIVE (Neg)
[2025-03-27 10:59] LABS: UA COLLECTION TYPE URINAL
[2025-03-27 13:15] LABS: ANISOCYTOSIS 2+; MICROCYTOSIS 3+; PLATELET ESTIMATE NORMAL; TOTAL CELLS COUNTED 100
[2025-03-27 13:16] LABS: HYPOCHROMASIA 2+; POLYCHROMASIA 1+; TEAR DROP CELLS FEW
[2025-03-27 13:17] LABS: SCHISTOCYTES FEW
[2025-03-27] MEDS ORDERED: acetaminophen 325mg tablet PO PRN ×2 (14:00)
[2025-03-27] MEDS ORDERED: ondansetron/PF 4mg/2ml inj IV PRN (14:00)
[2025-03-27] MEDS ORDERED: morphine 2 MG/ML inj. syringe IV PRN ×2 (14:00)
[2025-03-27] MEDS ORDERED: mag hydrox/Alum hydrox/simeth 30ml oral suspension PO PRN (14:00)
[2025-03-27] MEDS ORDERED: HYDROcodone/acetaminophen 5mg/325mg tablet PO PRN (14:00)
[2025-03-27] MEDS ORDERED: magnesium hydroxide 30ml (MOM) UD suspension PO PRN (14:00)
--- NOTE | 2025-03-27 14:09 | HISTORY AND PHYSICAL ---
History & Physical Providers to CC ~ History of Present Illness Reason for Admit\Complaint: Lightheadedness and shortness of breaths History of Present Illness This is a 54 years old male who comes in complaining of lightheadedness that happened upon waking up this morning; patient denies having any syncope and or lightheadedness prior to today; did not notice so bit more increase in shortness of breath with exertion; he has been having anginal chest pain on and off for a few months; he noticed some hematuria on and off; denies any hematemesis or melena or epistaxis Allergies: Coded Allergies: ibuprofen (Verified Allergy, Unknown, 03/27/25) Home Medications Home Medications Active Meclizine HCl 25 Mg Tablet 1 Tab PO Q6H PROTONIX tablet (Pantoprazole Sodium) 40 Mg Tablet.dr 40 Mg PO BID 30 Days Brilinta (Ticagrelor) 90 Mg Tablet 1 Tab PO Q12H 30 Days Lisinopril 5 Mg Tablet 5 Mg PO DAILY 30 Days Reported Zoloft* (Sertraline HCl) 25 Mg Tablet 2 Tab PO DAILY 30 Days Aspirin 81 Mg Tab.chew 1 Tab PO DAILY 30 Days LIPITOR tablet (Atorvastatin Calcium) 20 Mg Tablet 4 Tab PO DAILY 30 Days Eliquis (Apixaban) 5 Mg Tablet 1 Tab PO DAILY 30 Days Past Medical History Past Medical History STEMI a year back since then being on triple therapy with aspirin Brilinta and Eliquis Anemia requiring blood transfusion in the past Blood pressure Dyslipidemia Depression Past Surgical History Surgical History Comment No surgeries Family History Family History: FH: diabetes mellitus FATHER brother brother brother High blood pressure FATHER Past Social History Social History Comment Smokes a pack a day for 40 years; drinks a six pack a day of beer; uses methamphetamine ROS ROS A 10 point review of system was done with pertinent positives and negatives in the history of present illness Exam Vitals: Vital Signs Date Time Temp Pulse Resp B/P (MAP) Pulse Ox O2 Delivery O2 Flow Rate FiO2 03/27/25 12:36 76 16 116/78 (91) 99 03/27/25 07:57 98.3 General: Sitting up in bed in nonacute distress HEENT normal oral mucosa no JVD no palpable firm palpable thyroid eyes with PERRLA Lungs with normal bilateral entry no crackles no wheezing Heart normal rate and rhythm S1-S2 no murmurs Abdomen is soft nontender bowel sounds are present Extremities no edema plus two pulses Awake and alert grossly motor and sensory intact Diagnostic Data Last Recorded Lab Results: 03/27/2592103/27/25921 Advance Care Planning Advanced Care plannin - 30 Minutes Additional Plan This is a 54 years old male who woke up this morning with lightheadedness and presented to the emergency room and was found to be anemic; about a month back he was hospitalized and hemoglobin was also in the seven range; had some hematuria on and off Patient is admitted for symptomatic anemia; this is a microcytic anemia likely iron deficiency anemia; send anemia workup; patient to receive blood transfusion ordered by emergency room; if he has blood loss anemia this is likely chronic and is due to his triple therapy after his STEMI including aspirin Brilinta and Eliquis; check fecal occult blood; patient stated that about a year back he had EGD and colonoscopy; I can see the result of the EGD with just presence of hiatal hernia; Protonix b.i.d. Check CT of the abdomen due to presence of hematuria that patient states having on and off Polysubstance abuse with smoking use of alcohol and methamphetamines History of depression Per discussion with the patient he is a full code; he is admit as an inpatient Date of Service: March 27, 2025 Billing Provider: OUMOU COLLINS MD Common Visit Codes: [id number] INP/OBS CARE (HIGH) Secondary Visit Codes: [id number] CARE PLAN 30 MINUTES OUMOU COLLINS MD March 27, 2025 14:09
[2025-03-27] MEDS ORDERED: iohexol 300mg/ml 100ml inj. ONE (14:25)
[2025-03-27 14:36] LABS: APTT 23 SECONDS (22-32); INR 1.1 INR; PROTHROMBIN TIME 10.9 SECONDS (9.0-12.0)
[2025-03-27 14:45] LABS: FERRITIN 3 NG/ML (26-388); THYROID STIMULATING HORMONE 1.08 ulU/ml (0.34-4.50)
--- NOTE | 2025-03-27 15:13 | RADIOLOGY REPORT ---
Exam: CT CT ABDOMEN PELVIS W/ IV CONTRAST History: hematuria Comparison Study: CT CT CHEST ABDOMEN PELVIS on DOS: 08/11/24, CT CT ABDOMEN PELVIS on DOS: 12/20/23, C T CT CHEST ABDOMEN PELVIS on DOS: 12/18/23 TECHNIQUE: Multidetector CT of the abdomen and pelvis with IV contrast. Axial, coronal and sagittal m ultiplanar reformats were obtained from the axial data set by the technologist. Radiation Dose Information: CT Dose: CTDI volume is 29.57 mGy. Dose-length product is 1573.74 mGy*cm FINDINGS: Bibasilar atelectasis. Partially visualized heart is unremarkable. Subcentimeter hypodense hepatic lesions that are too small to characterize. Otherwise, Liver, spleen, pancreas and right adrenal gland are unremarkable. 1.1 cm left adrenal nodule. The gallbladder is no t definitely visualized. Mild nonspecific bilateral perirenal fat stranding. Left renal parapelvic cyst. Otherwise, kidneys, hours and urinary bladder unremarkable. Prostate measures 3.6 x 3.9 x 3.4 cm with Foci of calcificati on. Moderate sized hiatal hernia which is partially imaged. Stomach is filled with ingested material mild ly distended. Mild wall thickening of the proximal small bowel loops. The remainder of the small bow el loops unremarkable. Appendix is unremarkable. Moderate to large Amount of fecal material within th e colon. Sigmoid diverticulosis without diverticulitis. Mild rectal wall thickening. No evidence of intraperitoneal free air or free fluid. No evidence of aortic aneurysm or dissection. Mild atherosclerotic calcification of the aorta. No significant lymphadenopathy. Small left and small to moderate right-sided fat containing inguinal hernias. Small fat containing um bilical hernia. Schmorl node of the inferior L5 vertebral body. Focus of sclerosis of the right L1 ve rtebral body which may represent a bone island with a blastic lesion not excluded. Surgical clips are noted over the right inguinal region. IMPRESSION: Partially visualized moderate size hiatal hernia containing part of the stomach. Wall thickening of proximal small bowel loops which may be due to inadequate distention/enteritis. Moderate to large amount of fecal material within the colon. Sigmoid diverticulosis without diverticulitis. 1.1 cm left adrenal nodule. Adrenal protocol CT / MRI should be considered for further evaluation.
[2025-03-27 15:27] LABS: % IRON SATURATION 2 % (11-46); IRON 8 UG/DL (53-167); TOTAL IRON BINDING CAPACITY 369 UG/DL (259-388)
[2025-03-27] MEDS ORDERED: pantoprazole 40mg Tablet.DR PO SCH (20:00)
[2025-03-27] MEDS ORDERED: docusate sod 100mg capsule PO SCH (20:00)
--- NOTE | 2025-03-28 17:27 | PROGRESS NOTE ---
Daily Progress Note Providers to CC ~ Antibiotic Timeout Antibiotic Ordered?: No Objective Vital Signs Date Time Temp Pulse Resp B/P (MAP) Pulse Ox O2 Delivery O2 Flow Rate FiO2 03/27/25 19:57 98.2 66 16 124/74 100 Result Diagram: 03/27/2522 03/27/25921 Coagulation Studies Laboratory Tests Test 03/27/25 14:12 Prothrombin Time 10.9 SECONDS (9.0-12.0) INR International Normalized Ratio 1.1 INR Activated Partial Thromboplast Time 23 SECONDS (22-32) Coagulation Comments Problem\Assessment\Plan Patient left against medical advice Date of Service: March 28, 2025 Billing Provider: OUMOU COLLINS MD Common Visit Codes: NOT BILLABLE OUMOU COLLINS MD March 28, 2025 17:27
== END 2025-03-27 19:53 | disposition left against medical advice (07) | DRG 663 ==
LOC: ER 07:54 → ED HOLD 14:01
PROVIDERS: ADMIT Internal Medicine; ATTEND Internal Medicine
PROC: 30233N1 Transfusion of Nonautologous Red Blood Cells into Peripheral Vein, Percutaneous Approach (ICD-10-PCS; principal; 2025-03-27)
PROC: BW211ZZ Computerized Tomography (CT Scan) of Abdomen and Pelvis using Low Osmolar Contrast (ICD-10-PCS; 2025-03-27)
DX: D50.9 Iron deficiency anemia, unspecified (principal); E78.5 Hyperlipidemia, unspecified; Z53.29 Procedure and treatment not carried out because of patient's decision for other reasons; F32.A Depression, unspecified; F17.210 Nicotine dependence, cigarettes, uncomplicated; I25.10 Atherosclerotic heart disease of native coronary artery without angina pectoris; F15.10 Other stimulant abuse, uncomplicated; I25.2 Old myocardial infarction; Z83.3 Family history of diabetes mellitus; Z88.6 Allergy status to analgesic agent
CPT/HCPCS: 36415; 36430; 71045; 74177; 80053; 81003; 82728; 83540; 83550; 83880; 84145; 84443; 84484; 85007; 85025; 85610; 85730; 86885; 86900; 86901; 86920; 87040; 93005; A4615; G0378; J2405; J7030; J7120; P9016; Q9967

== ENCOUNTER 2025-04-29 14:33 | Inpatient (IN) | payer MEDICAID ==
[~2025-04-29] VITALS: Ht 162.6 cm; Wt 86.4 kg
--- NOTE | 2025-04-29 14:44 | ELECTROCARDIOGRAPH REPORT ---
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
--- NOTE | 2025-04-29 15:09 | RADIOLOGY REPORT ---
DI CHEST,SINGLE VIEW, HISTORY: CP COMPARISON: DI CHEST,SINGLE VIEW on DOS: 03/27/25, DI CHEST,SINGLE VIEW on DOS: 02/11/25, DI CHEST,SINGL E VIEW on DOS: 08/09/24 DI CHEST,SINGLE VIEW on DOS: 03/27/25, DI CHEST,SINGLE VIEW on DOS: 02/11/25, DI CHEST,SINGLE VIEW on DO S: 08/09/24 TECHNICAL DATA: 1 view of the chest was obtained. FINDINGS: Lines and tubes: None Cardiomediastinal silhouette: normal Pulmonary vasculature: normal Lung expansion: normal Lung airspace: normal Lung interstitium: normal Pleura: normal Pneumothorax: no Bones: Unremarkable Other: no IMPRESSION: No acute intrathoracic abnormality.
[2025-04-29 15:36] LABS: MEAN PLATELET VOLUME 8.3 FL (7.4-10.4); PLATELET COUNT 387 X10'3 (140-440); WHITE BLOOD COUNT 5.4 X10'3 (4.5-11.0)
[2025-04-29 15:52] LABS: ALBUMIN 3.5 G/DL (3.4-5.0); ANION GAP 9 (8-16); BLOOD UREA NITROGEN 16 MG/DL (7-18); BUN/CREATININE RATIO 17.2 (10.0-20.0); CALCIUM 8.6 MG/DL (8.5-10.1); CHLORIDE 109 MMOL/L (99-107); CREATININE 0.93 MG/DL (0.60-1.10); GLUCOSE 99 MG/DL (70-104); PRO BRAIN NATRIURETIC PEPTIDE 102 PG/ML (0-125); SODIUM 143 MMOL/L (135-145); TOTAL CARBON DIOXIDE 25.2 MMOL/L (24-32); eCRCL 74 ML/MIN; eGFR 84 ML/MIN
[2025-04-29 15:54] LABS: HEMATOCRIT 29.5 % (42.0-52.0); MEAN CORPUSCULAR HEMOGLOBIN 17.5 PG (27.0-31.0); MEAN CORPUSCULAR VOLUME 57.4 FL (78-98); RED BLOOD COUNT 5.15 X10'6 (4.70-6.10)
[2025-04-29 15:55] LABS: MEAN CORPUSCULAR HGB CONC 30.6 g/dL (33.0-36.5); RED CELL DISTRIBUTION WIDTH 21.3 % (11.5-14.5)
[2025-04-29 16:44] LABS: ANISOCYTOSIS 3+; HYPOCHROMASIA 2+; MICROCYTOSIS 3+; PLATELET ESTIMATE NORMAL; TOTAL CELLS COUNTED 100
[2025-04-29 16:45] LABS: ACANTHOCYTES FEW; ELLIPTOCYTES FEW
[2025-04-29] MEDS ORDERED: HYDROcodone/acetaminophen 5mg/325mg tablet PO PRN (18:10)
[2025-04-29] MEDS ORDERED: acetaminophen 325mg tablet PO PRN ×2 (18:10)
[2025-04-29] MEDS ORDERED: magnesium sulf-water 4G/100mL 100 ML IV PRN (18:10)
[2025-04-29] MEDS ORDERED: ondansetron 4mg rapidly disintigrating tab PO PRN (18:10)
[2025-04-29] MEDS ORDERED: HYDROcodone/acetaminophen 10/325mg tab PO PRN (18:10)
[2025-04-29] MEDS ORDERED: magnesium hydroxide 30ml (MOM) UD suspension PO PRN (18:10)
[2025-04-29] MEDS ORDERED: acetaminophen 650mg rectal suppository RC PRN (18:10)
[2025-04-29] MEDS ORDERED: ondansetron/PF 4mg/2ml inj IV PRN (18:10)
[2025-04-29] MEDS ORDERED: magnesium sulf-water 2g/50mL 50 ML IV PRN (18:10)
[2025-04-29] MEDS ORDERED: bisacodyl 10mg suppository rectal RC PRN (18:10)
[2025-04-29] MEDS ORDERED: potassium Cl 40MEQ/1/2NS 520ml 520 ML IV PRN (18:10)
[2025-04-29] MEDS ORDERED: potassium Cl 20 mEq SR tablet PO PRN ×2 (18:10)
--- NOTE | 2025-04-29 18:29 | HISTORY AND PHYSICAL ---
History & Physical Providers to Chief complaint chest pain ~ History of Present Illness Reason for Admit\Complaint: As above History of Present Illness This is a 54 years old white gentleman, with history of multiple medical problems including coronary artery disease MD 2023, status post angioplasty, anemia hemoglobin 9, chronic chronic kidney disease, left leg DVT, dyslipidemia, hypertension, history of peptic ulcer disease associated with GI bleeding, chronic tobacco abuse including currently, history of hiatal hernia, diverticulosis, history of methamphetamine abuse clean now, history of alcoholism, sober now, history of vertigo, presented today to emergency department chief complaint chest pain, located retrosternally radiation to the left arm, aching in character started two days ago, on and off, not associated nausea vomiting diarrhea constipation or shortness of breath; in addition history of cardiac trauma mechanically removed, chronic CHF associated with pulmonary hypertension, ejection fraction 52% January 2025, Pt BIB EMS from home with C/O CP that started a couple hours ago. Pt received, asprin 324mg and Nitro x2 with no improvement of pain.Pt cardiac hx of MD 12/2023. 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 No additional complaint or concern. Allergies: Coded Allergies: ibuprofen (Verified Allergy, Unknown, 03/27/25) Active prescriptions I reviewed reconciled Home Medications Home Medications Active Meclizine HCl 25 Mg Tablet 1 Tab PO Q6H PROTONIX tablet (Pantoprazole Sodium) 40 Mg Tablet.dr 40 Mg PO BID 30 Days Brilinta (Ticagrelor) 90 Mg Tablet 1 Tab PO Q12H 30 Days Lisinopril 5 Mg Tablet 5 Mg PO DAILY 30 Days Reported Zoloft* (Sertraline HCl) 25 Mg Tablet 2 Tab PO DAILY 30 Days Aspirin 81 Mg Tab.chew 1 Tab PO DAILY 30 Days LIPITOR tablet (Atorvastatin Calcium) 20 Mg Tablet 4 Tab PO DAILY 30 Days Eliquis (Apixaban) 5 Mg Tablet 1 Tab PO DAILY 30 Days Past Medical History Past Medical History As in HPI Past Surgical History Surgical History Comment As in HPI Family History Family History: Family history was reviewed; no changes noted. Past Social History Social History Comment Positive for chronic tobacco abuse including currently, deny illicit drug use or alcohol use now, live with the family good social support Health Maintenance Health Maintenance Noncontributory ROS ROS Constitutional : no fever , no chills, or weakness. No diaphoresis. Allergic/Immunologic, no lymphadenopathy, no hives, no skin eruptions. Eyes, no recent visual changes, no eye pain, no photophobia. Ears, nose, mouth, throat, no sore throat, no nosebleed, no ear pain. Cardiovascular, no palpitations, skipped beats, positive for chest pain, no peripheral edema, Respiratory, no dyspnea, orthopnea, cough, hemoptysis, chest wall pain. Gastrointestinal, no abdominal pain, nausea, vomiting, constipation or diarrhea. : no dysuria, hematuria, pelvic pain, urethral d/c. Endocrine, no polyuria, polydipsia, recent unintentional weight gain or loss. Hematologic/Lymphatic, no petechiae, no enlarged lymph nodes, no bone pain. Integumentary, no rash, no skin lesions, Musculoskeletal, no muscle aches, or pain, no muscle cramps, no recent change in gait Neurological, no dizziness, no headache, no syncope, no paresthesia. Psychiatric, no delusions, visual hallucinations, or hearing hallucinations. ROS - in rest is as in HPI. Exam Vitals: Vital Signs Date Time Temp Pulse Resp B/P (MAP) Pulse Ox O2 Delivery O2 Flow Rate FiO2 04/29/25 16:04 72 11 116/72 (87) 99 0 04/29/25 14:43 98.2 Vital signs, stable ,afebrile. Pulse Oximetry reflects adequate oxygenation. BMI is 32, weight 86 kg General: well developed, well nourished. Awake , alert, and oriented x4, resting comfortably in the bed, in no acute distress . Skin: Warm, dry, no pallor, no rash or petechiae. HEENT: Atraumatic, normocephalic, EOMI, anicteric sclera B; pink conjunctiva; PERRLA, normal oropharynx, moist oral and nasal mucosa. Tympanic membrane , nose , throat clear. Neck: Trachea midline. Supple, full range of motion, no JVD, bruit , hepatojugular reflex , lymphadenopathy or masses, or other lesions Cardiac: Regular rhythm, regular rate no murmurs, rubs, or gallops. Normal S1 and S2, no S3 noticed. PMI is normal. Respiratory: Equal breath sounds bilaterally, no tachypnea; lungs clear to auscultation bilaterally, no wheezing ,rub or rales, or crackles. Chest wall is symmetric and without deformity. No signs of trauma. Chest wall is nontender. No signs of respiratory distress. Resonance is normal upon percussion bilaterally. Gastrointestinal: Abdomen symmetric, non-distended, soft, non-tender, normal bowel sounds x4 quadrant, normoactive, no hepatosplenomegaly , no masses , no bruit, no flank pain bilaterally. No voluntary guarding, rebound, or rigidity. No tenderness to percussion. No pulsatile masses. Equal femoral pulses. No Vargas's sign or McBurney point tenderness. Back; no CVA tenderness bilaterally, no deformities. Neck and back are without deformity as well. No tenderness noted on palpation of the spinous processes. Spinous processes are midline. Cervical, thoracic, and lumbar paraspinal muscles are not tender and are without spasm. : normal external genitalia, without lesions, swelling, masses or tenderness. Musculoskeletal: Extremities, normal range of motion, non-tender, muscle strength 5/5 x 4. Negative Homans signs bilaterally on lower extremity. Distal pulses full symmetrical, no clubbing, cyanosis , edema. Neurological: Speech is clear, alert, and oriented x 4. No motor or sensory deficit, deep tendon reflexes normal, cerebellar intact. Cranial nerves II-XII intact. Psych: Alert and or appropriate, normal affect. Vascular: Good distal pulses, which are equal x4; capillary refill less than 2 seconds. Lymphatic, no lymphadenopathy. Diagnostic Data Last Recorded Lab Results: 04/29/25 1504 04/29/25 1504 Advance Care Planning Advanced Care plannin - 30 Minutes Additional Plan Assessment Chest pain precordial acute History of coronary artery disease, angioplasty, MD 2023 History of cardiac thrombectomy mechanical History of left lower leg DVT CHF systolic ejection fraction 52% associated with pulmonary hypertension January 2025, chronic Hypertension fair control Chronic anemia hemoglobin 9 History of peptic ulcer disease associated with GI bleeding History of methamphetamine and alcoholism abuse sober now Additional comorbidities, vertigo, hiatal hernia, diverticulosis, allergic to Motrin, dyslipidemia, Plan Serial troponin EKG Echocardiography pending We will consider Joya test in the morning Consulted for 5 minutes to stop using tobacco patient agrees started to nicotine patch Additional lab work pending 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
[2025-04-29 18:39] LABS: APTT 25 SECONDS (22-32); D-DIMER 0.38 MG/L FEU (0-0.50); PROTHROMBIN TIME 10.4 SECONDS (9.0-12.0)
[2025-04-29 18:46] LABS: ETHANOL < 10 MG/DL (<10); MAGNESIUM 2.2 MG/DL (1.5-2.4); PHOSPHORUS 4.1 MG/DL (2.3-4.5); THYROID STIMULATING HORMONE 1.36 ulU/ml (0.34-4.50)
[2025-04-29 18:48] LABS: HEMOGLOBIN A1C 5.3 % (4.5-6.2)
[2025-04-29] MEDS: morphine 2 MG/ML inj. syringe IV PRN (19:43)
[2025-04-29] MEDS: ringers solution, lacted 1,000 ML IV ONE (19:49)
[2025-04-29] MEDS: docusate sod 100mg capsule PO SCH (20:00)
[2025-04-29] MEDS: K and/or MAG REPLACEMENT MC SCH (20:00)
[2025-04-29] MEDS ORDERED: temazepam 15mg capsule PO PRN (21:00)
[2025-04-29 22:05] VITALS: BP 107/71; PULSE 65; RESP 18; TEMP 97.6; O2SAT 100
--- NOTE | 2025-04-29 22:24 | ELECTROCARDIOGRAPH REPORT ---
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 MAYURI Russell Measurements Intervals [place] Rate: 57 P: 70 UT: 160 QRS: 269 QRSD: 104 T: -85 QT: 429 QTc: 418 Interpretive Statements Sinus rhythm Inferoposterior infarct, old Lateral leads are also involved Electronically Signed On 04-30-2025 11:54:[address] MAYURI Russell Please click the below link to view image of tracing.
[2025-04-29] MEDS: nitroGLYCERIN 0.4mg SUBLingual tab SL PRN (22:34)
[2025-04-29] MEDS: morphine 2 MG/ML inj. syringe IV ONE (22:46)
[2025-04-29] MEDS: normal saline 1000ml 1,000 ML IV SCH (23:19)
[2025-04-30] VITALS (10 sets, daily range): BP systolic 95–145; BP diastolic 41–86; PULSE 58–101; RESP 13–25; TEMP 97–97.8; O2SAT 97–100
[2025-04-30] MEDS: LORazepam 2 mg/ml vial IV ONE (00:41)
[2025-04-30] MEDS ORDERED: heparin 10,000 units/1 ML INJ IV PRN (04:30)
[2025-04-30] MEDS: heparin 25,000 UNIT/250ml bag 250 ML IV PRN (04:31)
[2025-04-30] MEDS: heparin 10,000 units/1 ML INJ IV ONE (04:37)
[2025-04-30] MEDS: MESSAGE TO NURSING IJ ONE (04:56)
[2025-04-30] MEDS: HEPARIN DRIP-CARDIAC**PHARMACIST-TO-DOSE IV ONE (04:56)
[2025-04-30 06:28] LABS: MEAN PLATELET VOLUME 8.6 FL (7.4-10.4)
[2025-04-30 06:30] LABS: HEMATOCRIT 27.7 % (42.0-52.0); MEAN CORPUSCULAR VOLUME 59.2 FL (78-98); PLATELET COUNT 364 X10'3 (140-440); RED BLOOD COUNT 4.68 X10'6 (4.70-6.10); WHITE BLOOD COUNT 4.9 X10'3 (4.5-11.0)
[2025-04-30 06:50] LABS: ALANINE AMINOTRANSFERASE 16 U/L (12-78); ALBUMIN 3.2 G/DL (3.4-5.0); ANION GAP 7 (8-16); ASPARTATE AMINO TRANSFERASE 13 U/L (10-37); BILIRUBIN,TOTAL 0.4 MG/DL (0.1-1.0); BLOOD UREA NITROGEN 13 MG/DL (7-18); BUN/CREATININE RATIO 17.6 (10.0-20.0); CALCIUM 7.9 MG/DL (8.5-10.1); CHLORIDE 111 MMOL/L (99-107); CREATININE 0.74 MG/DL (0.60-1.10); GLUCOSE 87 MG/DL (70-104); POTASSIUM 4.4 MMOL/L (3.5-5.1); SODIUM 143 MMOL/L (135-145); TOTAL CARBON DIOXIDE 25.5 MMOL/L (24-32); TOTAL PROTEIN 6.5 G/DL (6.4-8.2); eCRCL 93 ML/MIN; eGFR > 90 ML/MIN
[2025-04-30 06:51] LABS: ALKALINE PHOSPHATASE 96 IU/L (46-116); CHOL/HDL RATIO 3.8 (0.00-4.99); CHOLESTEROL 159 MG/DL (0-200); HDL CHOLESTEROL 42 MG/DL (35-60); LDL CHOLESTEROL 103 MG/DL (50-100); TRIGLYCERIDES 22 MG/DL (20-135)
[2025-04-30 07:11] LABS: HEMOGLOBIN 8.2 g/dl (14.0-17.9); MEAN CORPUSCULAR HEMOGLOBIN 17.6 PG (27.0-31.0); MEAN CORPUSCULAR HGB CONC 29.7 g/dL (33.0-36.5); RED CELL DISTRIBUTION WIDTH 21.8 % (11.5-14.5)
[2025-04-30 07:19] LABS: ANISOCYTOSIS 3+; PLATELET ESTIMATE NORMAL; TOTAL CELLS COUNTED 100
[2025-04-30 07:20] LABS: ACANTHOCYTES FEW; ELLIPTOCYTES FEW; HYPOCHROMASIA 2+; MICROCYTOSIS 3+; POLYCHROMASIA FEW
[2025-04-30] MEDS: spironolactone 25 MG tablet PO SCH (07:40)
[2025-04-30] MEDS: nitroGLYCERIN 0.1mg/hour patch TD SCH (07:41)
[2025-04-30] MEDS: nicotine 21mg patch - 24 hr TD SCH (07:42)
[2025-04-30] MEDS: ringers solution, lacted 1,000 ML IV ONE (09:57)
[2025-04-30] MEDS: morphine 2 MG/ML inj. syringe IV PRN (15:03)
--- NOTE | 2025-04-30 15:21 | ELECTROCARDIOGRAPH REPORT ---
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 MAYURI Russell Measurements Intervals [place] Rate: 69 P: 37 [place]: 162 QRS: 269 QRSD: 106 T: -46 QT: 405 QTc: 434 Interpretive Statements Sinus rhythm Probable right ventricular hypertrophy Inferolateral infarct, old Electronically Signed On 05-02-2025 9:10:[address] MAYURI Russell Please click the below link to view image of tracing.
--- NOTE | 2025-04-30 17:26 | PROGRESS NOTE ---
Daily Progress Note Providers to CC Chief complaint, chest pain on and off intermittently ~ Central Line/PICC still needed: No Sanchez-Non Protocol Sanchez Indications Met/Not Met: F/C Indications Not Met Antibiotic Timeout Antibiotic Ordered?: No MRSA Education MRSA Education Provided to pt: No Subjective As above Objective Vital Signs Date Time Temp Pulse Resp B/P (MAP) Pulse Ox O2 Delivery O2 Flow Rate FiO2 04/30/25 15:00 97.0 70 20 134/58 (83) 100 Room Air 04/29/25 21:00 0 Vital signs, stable ,afebrile. Pulse Oximetry reflects adequate oxygenation. General: well developed, well nourished. Awake , alert, and oriented x4, resting comfortably in the bed, in no acute distress . Skin: Warm, dry, no pallor, no rash or petechiae. HEENT: Atraumatic, normocephalic, EOMI, anicteric sclera B; pink conjunctiva; PERRLA, normal oropharynx, moist oral and nasal mucosa. Tympanic membrane , nose , throat clear. Neck: Trachea midline. Supple, full range of motion, no JVD, bruit , hepatojugular reflex , lymphadenopathy or masses, or other lesions Cardiac: Regular rhythm, regular rate no murmurs, rubs, or gallops. Normal S1 and S2, no S3 noticed. PMI is normal. Respiratory: Equal breath sounds bilaterally, no tachypnea; lungs clear to auscultation bilaterally, no wheezing ,rub or rales, or crackles. Chest wall is symmetric and without deformity. No signs of trauma. Chest wall is nontender. No signs of respiratory distress. Resonance is normal upon percussion bilaterally. Gastrointestinal: Abdomen symmetric, non-distended, soft, non-tender, normal bowel sounds x4 quadrant, normoactive, no hepatosplenomegaly , no masses , no bruit, no flank pain bilaterally. No voluntary guarding, rebound, or rigidity. No tenderness to percussion. No pulsatile masses. Equal femoral pulses. No Vargas's sign or McBurney point tenderness. Back; no CVA tenderness bilaterally, no deformities. Neck and back are without deformity as well. No tenderness noted on palpation of the spinous processes. Spinous processes are midline. Cervical, thoracic, and lumbar paraspinal muscles are not tender and are without spasm. : normal external genitalia, without lesions, swelling, masses or tenderness. Musculoskeletal: Extremities, normal range of motion, non-tender, muscle strength 5/5 x 4. Negative Homans signs bilaterally on lower extremity. Distal pulses full symmetrical, no clubbing, cyanosis , edema. Neurological: Speech is clear, alert, and oriented x 4. No motor or sensory deficit, deep tendon reflexes normal, cerebellar intact. Cranial nerves II-XII intact. Psych: Alert and or appropriate, normal affect. Vascular: Good distal pulses, which are equal x4; capillary refill less than 2 seconds. Lymphatic, no lymphadenopathy. Result Diagram: 04/30/25 0610 04/30/25 0610 Coagulation Studies Laboratory Tests Test 04/29/25 15:04 Prothrombin Time 10.4 SECONDS (9.0-12.0) INR International Normalized Ratio 1.0 INR Activated Partial Thromboplast Time 25 SECONDS (22-32) D-Dimer 0.38 MG/L FEU (0-0.50) D-Dimer Comment Coagulation Comments Problem\Assessment\Plan Assessment Chest pain precordial acute, on and off, intermittently History of coronary artery disease, angioplasty, [place] 2023 History of cardiac thrombectomy mechanical History of left lower leg DVT CHF systolic ejection fraction 52% associated with pulmonary hypertension January 2025, chronic Hypertension fair control Chronic anemia hemoglobin 9 History of peptic ulcer disease associated with GI bleeding Chronic tobacco abuse including currently History of methamphetamine and alcoholism abuse sober now Additional comorbidities, vertigo, hiatal hernia, diverticulosis, allergic to Motrin, dyslipidemia, Plan Serial troponin EKG Echocardiography We will consider Joya test in the morning 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
[2025-04-30] MEDS: mag hydrox/Alum hydrox/simeth 30ml oral suspension PO PRN (22:46)
[2025-05-01] VITALS (16 sets, daily range): BP systolic 93–133; BP diastolic 55–77; PULSE 57–93; RESP 14–20; TEMP 97.9–98.3; O2SAT 97–100
[2025-05-01] MEDS: diphenhydrAMINE 50 mg/ml inj IV PRN (00:34)
[2025-05-01 06:55] LABS: HEMOGLOBIN 8.5 g/dl (14.0-17.9); MEAN PLATELET VOLUME 8.6 FL (7.4-10.4); WHITE BLOOD COUNT 5.5 X10'3 (4.5-11.0)
[2025-05-01 06:58] LABS: HEMATOCRIT 29.4 % (42.0-52.0); MEAN CORPUSCULAR HEMOGLOBIN 16.9 PG (27.0-31.0); MEAN CORPUSCULAR HGB CONC 28.8 g/dL (33.0-36.5); MEAN CORPUSCULAR VOLUME 58.7 FL (78-98); PLATELET COUNT 355 X10'3 (140-440); RED BLOOD COUNT 5.02 X10'6 (4.70-6.10); RED CELL DISTRIBUTION WIDTH 21.8 % (11.5-14.5)
[2025-05-01 07:32] LABS: ALANINE AMINOTRANSFERASE 14 U/L (12-78); ALBUMIN 3.3 G/DL (3.4-5.0); ALBUMIN/GLOBULIN RATIO 0.9 (1.1-1.5); ALKALINE PHOSPHATASE 97 IU/L (46-116); ANION GAP 9 (8-16); ASPARTATE AMINO TRANSFERASE 14 U/L (10-37); BILIRUBIN,TOTAL 0.5 MG/DL (0.1-1.0); BLOOD UREA NITROGEN 13 MG/DL (7-18); CHLORIDE 107 MMOL/L (99-107); CREATININE 0.81 MG/DL (0.60-1.10); GLUCOSE 88 MG/DL (70-104); MAGNESIUM 2.2 MG/DL (1.5-2.4); POTASSIUM 3.8 MMOL/L (3.5-5.1); SODIUM 139 MMOL/L (135-145); TOTAL CARBON DIOXIDE 23.5 MMOL/L (24-32); TOTAL PROTEIN 6.8 G/DL (6.4-8.2); eCRCL 85 ML/MIN; eGFR > 90 ML/MIN
[2025-05-01 08:19] LABS: TOTAL CELLS COUNTED 100
[2025-05-01 08:20] LABS: ANISOCYTOSIS 3+; HYPOCHROMASIA 3+; MICROCYTOSIS 3+; PLATELET ESTIMATE NORMAL; POLYCHROMASIA 1+; TARGET CELLS 1+
[2025-05-01 08:21] LABS: ELLIPTOCYTES FEW; SCHISTOCYTES FEW
[2025-05-01] MEDS ORDERED: aminophylline 500mg/20ml vial IV PRN (09:10)
[2025-05-01] MEDS ORDERED: nitroGLYCERIN 0.4mg SUBLingual tab SL PRN (09:10)
[2025-05-01] MEDS ORDERED: metoprolol tartrate 1mg/ml inj IV PRN (09:10)
[2025-05-01] MEDS: LORazepam 1 MG tablet PO PRN (09:34)
[2025-05-01] MEDS ORDERED: aminophylline 250mg/10ml inj. IV PRN (10:24)
[2025-05-01] MEDS: regadenoson 0.4mg/5ml syringe IV PRN (10:48)
[2025-05-01] MEDS: non-formulary drug (Meclizine HCl 1 TAB) PO SCH (13:58)
--- NOTE | 2025-05-01 13:58 | PROGRESS NOTE ---
Daily Progress Note Providers to CC ~ feels better today Central Line/PICC still needed: No Sanchez-Non Protocol Sanchez Indications Met/Not Met: F/C Indications Not Met Antibiotic Timeout Antibiotic Ordered?: No MRSA Education MRSA Education Provided to pt: No Subjective As above Objective Vital Signs Date Time Temp Pulse Resp B/P (MAP) Pulse Ox O2 Delivery O2 Flow Rate FiO2 05/01/25 12:31 97.9 80 16 130/75 (93) 98 Room Air 05/01/25 10:46 0.0 Vital signs, stable ,afebrile. Pulse Oximetry reflects adequate oxygenation. General: well developed, well nourished. Awake , alert, and oriented x4, resting comfortably in the bed, in no acute distress . Skin: Warm, dry, no pallor, no rash or petechiae. HEENT: Atraumatic, normocephalic, EOMI, anicteric sclera B; pink conjunctiva; PERRLA, normal oropharynx, moist oral and nasal mucosa. Tympanic membrane , nose , throat clear. Neck: Trachea midline. Supple, full range of motion, no JVD, bruit , hepatojugular reflex , lymphadenopathy or masses, or other lesions Cardiac: Regular rhythm, regular rate no murmurs, rubs, or gallops. Normal S1 and S2, no S3 noticed. PMI is normal. Respiratory: Equal breath sounds bilaterally, no tachypnea; lungs clear to auscultation bilaterally, no wheezing ,rub or rales, or crackles. Chest wall is symmetric and without deformity. No signs of trauma. Chest wall is nontender. No signs of respiratory distress. Resonance is normal upon percussion bilaterally. Gastrointestinal: Abdomen symmetric, non-distended, soft, non-tender, normal bowel sounds x4 quadrant, normoactive, no hepatosplenomegaly , no masses , no bruit, no flank pain bilaterally. No voluntary guarding, rebound, or rigidity. No tenderness to percussion. No pulsatile masses. Equal femoral pulses. No Vargas's sign or McBurney point tenderness. Back; no CVA tenderness bilaterally, no deformities. Neck and back are without deformity as well. No tenderness noted on palpation of the spinous processes. Spinous processes are midline. Cervical, thoracic, and lumbar paraspinal muscles are not tender and are without spasm. : normal external genitalia, without lesions, swelling, masses or tenderness. Musculoskeletal: Extremities, normal range of motion, non-tender, muscle strength 5/5 x 4. Negative Homans signs bilaterally on lower extremity. Distal pulses full symmetrical, no clubbing, cyanosis , edema. Neurological: Speech is clear, alert, and oriented x 4. No motor or sensory deficit, deep tendon reflexes normal, cerebellar intact. Cranial nerves II-XII intact. Psych: Alert and or appropriate, normal affect. Vascular: Good distal pulses, which are equal x4; capillary refill less than 2 seconds. Lymphatic, no lymphadenopathy. Result Diagram: 05/01/2525 05/01/25 0625 Coagulation Studies Laboratory Tests Test 04/29/25 15:04 Prothrombin Time 10.4 SECONDS (9.0-12.0) INR International Normalized Ratio 1.0 INR Activated Partial Thromboplast Time 25 SECONDS (22-32) D-Dimer 0.38 MG/L FEU (0-0.50) D-Dimer Comment Coagulation Comments Problem\Assessment\Plan Assessment Chest pain precordial acute, on and off, intermittently History of coronary artery disease, angioplasty, [place] 2023 History of cardiac thrombectomy mechanical History of left lower leg DVT CHF systolic ejection fraction 52% associated with pulmonary hypertension January 2025, chronic Hypertension fair control Chronic anemia hemoglobin 9 History of peptic ulcer disease associated with GI bleeding Chronic tobacco abuse including currently History of methamphetamine and alcoholism abuse sober now Additional comorbidities, vertigo, hiatal hernia, diverticulosis, allergic to Motrin, dyslipidemia, Plan Serial troponin EKG Echocardiography completed Joya test pending 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
[2025-05-01] MEDS ORDERED: meclizine 12.5mg tablet PO PRN (14:02)
--- NOTE | 2025-05-01 15:36 | RADIOLOGY REPORT ---
Reason for study/Clinical History: Chest Pain Comparison Study: NM NM OSKAR SCAN on DOS: 02/12/25, NM NM OSKAR SCAN on DOS: 02/21/24 Myocardial Perfusion Study with SPECT Technique: The patient received an intravenous injection of 8.7 mCi of technetium-99m Sestamibi whi le at rest. After a short delay, SPECT tomographic images of the heart were obtained. The patient stephanie castorena went to the stress lab where they received an intravenous Lexiscan utilizing standard protocol. 34.2 mCi of technetium-99m Sestamibi was injected intravenously immediately after the start of the infusion. Gated SPECT tomographic images of the heart were acquired and processed. Findings: Rotating planar images show no significant attenuation artifact. The left ventricular size is within normal limits. Non reversible defect is present in the inferior wall. Mild reversibility is present in the inferolateral wall. The left ventricular ejection fraction is 45 %. (normal greater than 50%) Impression: Fixed defect in the inferior wall suggestive of chronic infarct. There is suggestion of mild reversibility in the inferolateral wall possibly representing a small are a of ischemia. Left ventricular ejection fraction is 45%.
[2025-05-01] MEDS: diphenhydrAMINE 25mg capsule PO PRN (15:44)
--- NOTE | 2025-05-01 17:23 | CARDIOLOGY REPORT ---
APPROVED REPORT EXAM: Limited 2D, Doppler, and color-flow Echocardiogram. Patient Location: [address] Blood Pressure: 95/65 mmHg Heart Rate: 54 bpm Rhythm: Bradycardia Indications Chest Pain Congestive Heart Failure Hx of CAD/[place] Angioplasty RCA (12/16/2023, 12/17/2026) Hypertension Gin Clerk: MD Dominic Previous echo: 02/13/2025 [facility] EF:50-55% 2D Dimensions RVDd 4.0 cm LA Diam4.5 cm IVSd 1.3 (0.7-1.1cm) LVDd 5.2 cm PWd 1.1 (0.7-1.1cm) IVSs 1.3 (0.8-1.2cm) RA Minor4.7 cmLVDs 4.1 (2.5-4.0cm) PWs 1.2 (0.8-1.2cm) LVEF(%) 44.0 (>50%) IVC 18.90 mmFS (%) 21.9 % SV 58.0 ml CO 3.7 L/min M-Mode Dimensions IVSd 1.27 (0.7-1.1cm) LVDd 5.73 (4.0-5.6cm) PWd 1.21 (0.7-1.1cm) IVSs 1.37 cm MV EPSS 1.0 (<0.5cm) LVDs 4.35 (2.0-3.8cm) FS (%) 26 % PWs 1.34 cm ESV(Teich) 69.7 ml LVEF(%) 51 (>50%) Biplane 2D LA Volumes LA ESV A4C 69.90 mL/m2 Tricuspid Valve TR P. Velocity 232 cm/s RAP ESTIMATE 10 mmHg TR Peak Gr. 22 mmHg RVSP 32 mmHg Pulmonary Vein S1 Velocity 58.1 cm/s D2 Velocity 41.9 cm/s PVa [id number] cm/s PVa [id number] msec LEFT VENTRICLE Normal LV size with mildly reduced function. Apical sepum and inferolateral segments appear hypokinet ic. Mild concentric hypertrophy. Overall LVEF is 45-50%. RIGHT VENTRICLE Right ventricle is mild to moderately dilated with reduced systolic function. Estimated PA systolic pressure 37 mmHg. ATRIA Left atrium is moderately dilated. Right atrium appears to be moderately dilated. AORTIC VALVE Aortic valve is grossly normal in structure. Aortic valve not fully assessed due to limited exam. [facility] plete echo performed on 02/13/2025. MITRAL VALVE Mitral valve is grossly normal in structure and function. Trace regurgitation. TRICUSPID VALVE TV appears structurally normal with trace regurgitation. GREAT VESSELS IVC is normal in size and collapses less than 50% with inspiration. PERICARDIUM Normal pericardium. No pericardial effusion seen. Other Information Study Quality: Adequate Conclusion Normal LV size with mildly reduced function. Apical sepum and inferolateral segments appear hypokine tic. Mild concentric hypertrophy. Overall LVEF is 45-50%. Right ventricle is mild to moderately dilated with reduced systolic function. Estimated PA systolic pressure 37 mmHg. Left atrium is moderately dilated. Right atrium appears to be moderately dilated. Aortic valve is grossly normal in structure. Aortic valve not fully assessed due to limited exam. [facility] plete echo performed on 02/13/2025. Mitral valve is grossly normal in structure and function. Trace regurgitation. TV appears structurally normal with trace regurgitation. Normal pericardium. No pericardial effusion seen.
[2025-05-01] MEDS: ticagrelor 90mg tablet PO SCH (19:42)
[2025-05-01] MEDS: pantoprazole 40mg Tablet.DR PO SCH (19:43)
[2025-05-02 02:00] VITALS: BP 125/81; PULSE 78; RESP 12; TEMP 98; O2SAT 100
[2025-05-02 07:00] VITALS: BP 114/72; PULSE 61; RESP 12; TEMP 97.6; O2SAT 98
[2025-05-02 07:34] LABS: MEAN PLATELET VOLUME 8.8 FL (7.4-10.4); PLATELET COUNT 369 X10'3 (140-440); RED BLOOD COUNT 5.02 X10'6 (4.70-6.10); RED CELL DISTRIBUTION WIDTH 22.4 % (11.5-14.5); WHITE BLOOD COUNT 5.6 X10'3 (4.5-11.0)
[2025-05-02 07:57] LABS: ALANINE AMINOTRANSFERASE 15 U/L (12-78); ALBUMIN 3.3 G/DL (3.4-5.0); ALBUMIN/GLOBULIN RATIO 0.9 (1.1-1.5); ALKALINE PHOSPHATASE 102 IU/L (46-116); ANION GAP 9 (8-16); ASPARTATE AMINO TRANSFERASE 11 U/L (10-37); BILIRUBIN,TOTAL 0.4 MG/DL (0.1-1.0); BLOOD UREA NITROGEN 14 MG/DL (7-18); BUN/CREATININE RATIO 16.5 (10.0-20.0); CALCIUM 8.2 MG/DL (8.5-10.1); CHLORIDE 108 MMOL/L (99-107); CREATININE 0.85 MG/DL (0.60-1.10); GLUCOSE 90 MG/DL (70-104); MAGNESIUM 2.3 MG/DL (1.5-2.4); POTASSIUM 4.2 MMOL/L (3.5-5.1); SODIUM 141 MMOL/L (135-145); TOTAL CARBON DIOXIDE 24.4 MMOL/L (24-32); TOTAL PROTEIN 6.9 G/DL (6.4-8.2); eCRCL 81 ML/MIN; eGFR > 90 ML/MIN
[2025-05-02 08:00] VITALS: RESP 14; O2SAT 98
[2025-05-02] MEDS ORDERED: apixaban 5mg tablet PO SCH (08:00)
[2025-05-02 08:42] LABS: HEMATOCRIT 28.6 % (42.0-52.0); HEMOGLOBIN 8.8 g/dl (14.0-17.9); MEAN CORPUSCULAR HEMOGLOBIN 17.6 PG (27.0-31.0); MEAN CORPUSCULAR HGB CONC 30.6 g/dL (33.0-36.5); MEAN CORPUSCULAR VOLUME 57.3 FL (78-98)
[2025-05-02] MEDS: aspirin 81mg tab.chew PO SCH (09:16)
[2025-05-02] MEDS: sertraline 50mg tablet PO SCH (09:17)
[2025-05-02] MEDS: atorvastatin 20mg tablet PO SCH (09:17)
[2025-05-02] MEDS: lisinopril 5mg tablet PO SCH (09:18)
[2025-05-02 09:33] LABS: ANISOCYTOSIS 3+; ELLIPTOCYTES FEW; HYPOCHROMASIA 2+; MICROCYTOSIS 3+; PLATELET ESTIMATE NORMAL; POLYCHROMASIA FEW; SCHISTOCYTES FEW; TARGET CELLS FEW; TEAR DROP CELLS FEW; TOTAL CELLS COUNTED 100
[2025-05-02 09:34] LABS: BURR CELLS FEW
[2025-05-02 11:00] VITALS: BP 125/79; PULSE 72; RESP 14; TEMP 98.1; O2SAT 100
[2025-05-02] MEDS ORDERED: DAPA5TAB PO (12:23)
[2025-05-02] MEDS ORDERED: CARV3.12 PO (12:23)
[2025-05-02] MEDS ORDERED: ISOS10TA94 PO (12:23)
[2025-05-02] MEDS ORDERED: SPIR25TA PO (12:23)
--- NOTE | 2025-05-02 16:57 | DISCHARGE SUMMARY ---
Discharge Summary Providers to CC Doing fine today asking to be discharged home ~ Discharge Summary Assessment Chest pain precordial acute History of coronary artery disease, angioplasty, [place] 2023 History of cardiac thrombectomy mechanical History of left lower leg DVT CHF systolic ejection fraction 52% associated with pulmonary hypertension January 2025, chronic Hypertension fair control Chronic anemia hemoglobin 9 History of peptic ulcer disease associated with GI bleeding History of methamphetamine and alcoholism abuse sober now Additional comorbidities, vertigo, hiatal hernia, diverticulosis, allergic to Motrin, dyslipidemia, Admission Diagnosis: CP Admission Diagnosis Comment: Chest pain precordial acute History of coronary artery disease, angioplasty, [place] 2023 History of cardiac thrombectomy mechanical History of left lower leg DVT CHF systolic ejection fraction 52% associated with pulmonary hypertension January 2025, chronic Hypertension fair control Chronic anemia hemoglobin 9 History of peptic ulcer disease associated with GI bleeding History of methamphetamine and alcoholism abuse sober now Additional comorbidities, vertigo, hiatal hernia, diverticulosis, allergic to Motrin, dyslipidemia, Hospital Course DATE OF ADMISSION: April 29, 2025 DATE OF DISCHARGE: May 02, 2025 Discharge Diagnosis\Comment: Chest pain precordial acute History of coronary artery disease, angioplasty, [place] 2023 History of cardiac thrombectomy mechanical History of left lower leg DVT CHF systolic ejection fraction 52% associated with pulmonary hypertension January 2025, chronic Hypertension fair control Chronic anemia hemoglobin 9 History of peptic ulcer disease associated with GI bleeding History of methamphetamine and alcoholism abuse sober now Additional comorbidities, vertigo, hiatal hernia, diverticulosis, allergic to Motrin, dyslipidemia, Operations\Procedures: Non Consultants: Non Complications: Non Condition on DC: Stable Discharge Summary: This is a 54 years old white gentleman, with history of multiple medical problems including coronary artery disease [place] 2023, status post angioplasty, anemia hemoglobin 9, chronic chronic kidney disease, left leg DVT, dyslipidemia, hypertension, history of peptic ulcer disease associated with GI bleeding, chronic tobacco abuse including currently, history of hiatal hernia, diverticulosis, history of methamphetamine abuse clean now, history of alcoholism, sober now, history of vertigo, presented today to emergency department chief complaint chest pain, located retrosternally radiation to the left arm, aching in character started two days ago, on and off, not associated nausea vomiting diarrhea constipation or shortness of breath; in addition history of cardiac trauma mechanically removed, chronic CHF associated with pulmonary hypertension, ejection fraction 52% January 2025, Pt BIB EMS from home with C/O CP that started a couple hours ago. Pt received, asprin 324mg and Nitro x2 with no improvement of pain.Pt cardiac hx of [place] 12/2023. 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 No additional complaint or concern. To admission patient was extensively evaluated including echocardiography serial troponin EKG and Joya test all of them were fine, today he has no complaint asking to be discharged home medication reconciled follow-up PCP Cardiology in the morning, return to emergency department if condition worsens, today on physical exam Vital signs, stable ,afebrile. Pulse Oximetry reflects adequate oxygenation. General: well developed, well nourished. Awake , alert, and oriented x4, resting comfortably in the bed, in no acute distress . Skin: Warm, dry, no pallor, no rash or petechiae. HEENT: Atraumatic, normocephalic, EOMI, anicteric sclera B; pink conjunctiva; PERRLA, normal oropharynx, moist oral and nasal mucosa. Tympanic membrane , nose , throat clear. Neck: Trachea midline. Supple, full range of motion, no JVD, bruit , hepatojugular reflex , lymphadenopathy or masses, or other lesions Cardiac: Regular rhythm, regular rate no murmurs, rubs, or gallops. Normal S1 and S2, no S3 noticed. PMI is normal. Respiratory: Equal breath sounds bilaterally, no tachypnea; lungs clear to auscultation bilaterally, no wheezing ,rub or rales, or crackles. Chest wall is symmetric and without deformity. No signs of trauma. Chest wall is nontender. No signs of respiratory distress. Resonance is normal upon percussion bilaterally. Gastrointestinal: Abdomen symmetric, non-distended, soft, non-tender, normal bowel sounds x4 quadrant, normoactive, no hepatosplenomegaly , no masses , no bruit, no flank pain bilaterally. No voluntary guarding, rebound, or rigidity. No tenderness to percussion. No pulsatile masses. Equal femoral pulses. No Vargas's sign or McBurney point tenderness. Back; no CVA tenderness bilaterally, no deformities. Neck and back are without deformity as well. No tenderness noted on palpation of the spinous processes. Spinous processes are midline. Cervical, thoracic, and lumbar paraspinal muscles are not tender and are without spasm. : normal external genitalia, without lesions, swelling, masses or tenderness. Musculoskeletal: Extremities, normal range of motion, non-tender, muscle strength 5/5 x 4. Negative Homans signs bilaterally on lower extremity. Distal pulses full symmetrical, no clubbing, cyanosis , edema. Neurological: Speech is clear, alert, and oriented x 4. No motor or sensory deficit, deep tendon reflexes normal, cerebellar intact. Cranial nerves II-XII intact. Psych: Alert and or appropriate, normal affect. Vascular: Good distal pulses, which are equal x4; capillary refill less than 2 seconds. Lymphatic, no lymphadenopathy. *Problems/Diagnosis: (1) Chest pain Status: Acute Total Time Spent on D/C: > 30 Minutes Date of Service: May 02, 2025 Billing Provider: LLOYD LONDON MD Common Visit Codes: 38240-PQH/[id number] DISCH DAY >30min LLOYD LONDON MD May 02, 2025 16:57
== END 2025-05-02 14:44 | disposition home or self-care (01) | DRG 198 ==
LOC: ER 14:34 → ED HOLD 18:14 → PCU 3S 21:58
PROVIDERS: ADMIT Family Medicine; ATTEND Family Medicine
PROC: 4A02XM4 Measurement of Cardiac Total Activity, External Approach (ICD-10-PCS; principal; 2025-05-01)
PROC: 3E033HZ Introduction of Radioactive Substance into Peripheral Vein, Percutaneous Approach (ICD-10-PCS; 2025-05-01)
DX: R07.89 Other chest pain (principal); I25.10 Atherosclerotic heart disease of native coronary artery without angina pectoris; I13.0 Hypertensive heart and chronic kidney disease with heart failure and stage 1 through stage 4 chronic kidney disease, or unspecified chronic kidney disease; I50.22 Chronic systolic (congestive) heart failure; D64.9 Anemia, unspecified; F10.21 Alcohol dependence, in remission; K44.9 Diaphragmatic hernia without obstruction or gangrene; K57.30 Diverticulosis of large intestine without perforation or abscess without bleeding; Y90.9 Presence of alcohol in blood, level not specified; N18.9 Chronic kidney disease, unspecified; I25.2 Old myocardial infarction; Z72.0 Tobacco use; Z88.6 Allergy status to analgesic agent; Z87.11 Personal history of peptic ulcer disease; Z86.718 Personal history of other venous thrombosis and embolism
CPT/HCPCS: 36415; 71045; 78452; 80048; 80053; 80061; 80320; 83036; 83735; 83880; 84100; 84443; 84484; 85007; 85025; 85379; 85610; 85730; 87081; 93005; 93017; 93308; 99285; A9500; G0378; J1200; J1644; J2060; J2270; J2785; J7030; J7120; Q0163

== ENCOUNTER 2025-05-15 01:57 | Emergency (ER) | payer MEDICAID ==
[~2025-05-15] VITALS: Ht 162.6 cm; Wt 83.9 kg
[~2025-05-15 01:57] MED LIST changes: +CARV3.12 PO; +DAPA5TAB PO; +ISOS10TA94 PO; +SPIR25TA PO
[2025-05-15 02:01] VITALS: TEMP 98.6
[2025-05-15] MEDS: normal saline 1000ml 1,000 ML IV ONE (02:44)
[2025-05-15] MEDS: ondansetron/PF 4mg/2ml inj IV ONE (02:45)
[2025-05-15 03:04] LABS: CREATININE 1.00 MG/DL (0.60-1.10); PRO BRAIN NATRIURETIC PEPTIDE 215 PG/ML (0-125); TOTAL CARBON DIOXIDE 22.7 MMOL/L (24-32); eCRCL 69 ML/MIN; eGFR 77 ML/MIN
[2025-05-15 03:11] LABS: MEAN PLATELET VOLUME 8.7 FL (7.4-10.4); RED CELL DISTRIBUTION WIDTH 21.3 % (11.5-14.5)
[2025-05-15] MEDS: LIDOcaine 2% Viscous 15ml cup MM PRN (03:11)
[2025-05-15] MEDS: mag hydrox/Alum hydrox/simeth 30ml oral suspension PO ONE (03:11)
--- NOTE | 2025-05-15 03:27 | Physician Documentation ---
History of Present Illness ~ Chief Complaint: Chest Pain Stated Complaint: CHEST PAIN Time Seen by MD: 02:29 Primary Medical Doctor: DR GONZALEZ FROM [facility] Mode of Arrival: POV, Ambulatory HPI 54-year-old male presenting with chest pain. He tells me that he was doing okay until around dinnertime, when he was eating tacos. He suddenly developed pain in his chest and upper abdomen. It is it is severe and constant. No radiation. It is worse with deep inspiration. Nothing makes it better. No fevers or infectious symptoms. No vomiting or diarrhea. He reports a history of a heart attack and/or blood clot in his heart a couple of years ago. He reports a distant history of acid reflux. Medication Reconciliation Allergies: Coded Allergies: ibuprofen (Verified Allergy, Unknown, 03/27/25) Scheduled Apixaban (Eliquis), 1 TAB PO DAILY, (Reported) Aspirin (Aspirin), 1 TAB PO DAILY, (Reported) Atorvastatin Calcium (LIPITOR tablet), 4 TAB PO DAILY, (Reported) Carvedilol (Coreg), 1 TAB PO Q12H Dapagliflozin Propanediol (Farxiga), 1 TAB PO DAILY Isosorbide Mononitrate (Isosorbide Mononitrate), 1 TAB PO DAILY Lisinopril (Lisinopril), 5 MG PO DAILY Meclizine HCl (Meclizine HCl), 1 TAB PO Q6H Pantoprazole Sodium (PROTONIX tablet), 40 MG PO BID Sertraline Hcl* (Zoloft*), 2 TAB PO DAILY, (Reported) Spironolactone (Aldactone), 1 TAB PO DAILY Ticagrelor (Brilinta), 1 TAB PO Q12H Past Medical History Past Medical History: Coronary Artery Disease, Myocardial Infarction, GI Bleed Past Surgical History: noncontributory, angioplasty Other Past Surgical History: Mechanical thrombectomy 12/16/2023 Patient History: FH: diabetes mellitus FATHER brother brother brother High blood pressure FATHER Alcohol Use: None Drug Use: methamphetamine Lives In: Home Review of Systems Respiratory: Denies: shortness of breath Cardiovascular: Reports: chest pain Gastrointestinal: Reports: abdominal pain; Denies: vomiting, diarrhea Physical Exam Vital Signs: Temperature: 98.6, Source: Oral, Heart Rate: 70, Respiratory Rate: 24, BP: 120/56, Pulse Oximetry: 99, Weight: 83.900 Oxygen Flow Rate: 0 Physical Exam General: This is a uncomfortable appearing middle-aged man HEENT: Atraumatic, oropharynx is moist Heart: Regular rate and rhythm, no audible murmur, normal-appearing peripheral perfusion including strong left radial pulse Lungs: Clear breath sounds bilateral, normal work of breathing, normal oxygen saturation on room air Abdomen: Soft, nondistended, he is quite tender to palpation in the epigastric region, otherwise nontender, no rebound or guarding Extremities: Warm and well-perfused, tenderness on palpation of the calf muscles bilateral, no significant edema Neuro: Alert and oriented, no focal deficits Psychiatric: Anxious and appears uncomfortable Progress Results/Orders Results/Orders Orders - TATI GUSMAN MD Chest,Single View (05/15/25 02:08) Monitor (05/15/25 02:08) Saline Lock (05/15/25 02:08) Oxygen (05/15/25 02:08) Electrocardiogram (05/15/25 02:08) Cta Chest Abdomen Pelvis (05/15/25 04:50) Completed Orders - TATI GUSMAN MD Chest,Single View (05/15/25 02:08) Cbc/Diff (05/15/25 02:08) BMP (05/15/25 02:08) PBNP (05/15/25 02:08) Hs Troponin I W Calculations (05/15/25 02:08) Normal Saline 1000ml (Sodium Chloride 10 (05/15/25 02:40) Ondansetron Inj. (Zofran 4mg/2ml Vial) (05/15/25 02:40) Nitroglycerin Sublingual Tab (Nitrostat (05/15/25 03:00) Nitroglycerin Sublingual Tab (Nitrostat (05/15/25 03:00) Mag & Alum Hydrox/Simeth Susp (Maalox Or (05/15/25 03:05) Lidocaine 2% Viscous (Xylocaine 2% Visco (05/15/25 03:05) Pantoprazole 40mg Iv (Protonix 40mg Iv) (05/15/25 03:05) Man Diff (05/15/25 02:37) Cta Chest Abdomen Pelvis (05/15/25 04:50) Iohexol 350mg/Ml 100ml (Omnipaque 350mg/ (05/15/25 04:23) Medications Received in ER Medications (Trade) Dose Ordered Sig/Ariel Route PRN Reason Start Time Stop Time Status Last Admin Dose Admin Sodium Chloride 1,000 ml @ 1,000 mls/hr ONCE ONCE IV 05/15/25 02:40 05/15/25 03:39 DC 05/15/25 02:44 1,000 MLS/HR (Zofran 4mg/2ml vial) 4 mg ONCE ONCE IV 05/15/25 02:40 05/15/25 02:41 DC 05/15/25 02:45 4 MG (Nitrostat SL tablet) 0.4 mg Q5MIN PRN SL chest pain 05/15/25 03:00 05/15/25 06:35 DC 05/15/25 03:27 0.4 MG (Maalox oral suspension) 30 ml ONCE ONCE PO 05/15/25 03:05 05/15/25 03:06 DC 05/15/25 03:11 30 ML (Xylocaine 2% Viscous 15mL cup) 15 ml Q4H PRN MM sore throat 05/15/25 03:05 05/15/25 06:35 DC 05/15/25 03:11 15 ML (Protonix 40mg IV) 40 mg ONCE ONCE IV 05/15/25 03:05 05/15/25 03:06 DC 05/15/25 03:11 40 MG Vital Signs 05/15/25 05/15/25 05/15/25 05/15/25 02:01 02:34 03:05 03:25 Temp 98.6 Pulse 82 70 70 Resp 24 16 24 24 B/P (MAP) 133/90 120/56 (77) 117/71 (86) Pulse Ox 99 99 99 O2 Flow Rate 0 05/15/25 05/15/25 05/15/25 04:00 05:48 06:30 Pulse 81 79 Resp 18 20 18 B/P (MAP) 133/82 (99) 133/82 Pulse Ox 99 98 Laboratory Tests Test 05/15/25 02:37 White Blood Count 7.1 Red Blood Count 5.16 Hemoglobin 8.9 L Hematocrit 29.1 L Mean Corpuscular Volume 56.4 L Mean Corpuscular Hemoglobin 17.4 L Mean Corpuscular Hemoglobin Concent 30.8 L Red Cell Distribution Width 21.3 H Platelet Count 494 H Mean Platelet Volume 8.7 Neutrophils (%) (Auto) Lymphocytes (%) (Auto) Monocytes (%) (Auto) Eosinophils (%) (Auto) Basophils (%) (Auto) Neutrophils # (Auto) Lymphocytes # (Auto) Monocytes # (Auto) Eosinophils # (Auto) Basophils # (Auto) CBC Comment Differential Total Cells Counted 100 Neutrophils % (Manual) 72.0 Lymphocytes % (Manual) 19.0 L Monocytes % (Manual) 7.0 Eosinophils % (Manual) 2.0 Platelet Estimate Increased Red Blood Cell Morphology Perf Basophilic Stippling Anisocytosis 3+ Microcytosis 3+ Sodium Level 137 Potassium Level 3.5 Chloride Level 104 Carbon Dioxide Level 22.7 L Anion Gap 10 Blood Urea Nitrogen 16 Creatinine 1.00 Estimated GFR/1.73 m2 77 BUN/Creatinine Ratio 16.0 Glucose Level 105 H Calcium Level 8.9 Troponin I High Sensitivity 9 Pro-B-Type Natriuretic Peptide 215 H Albumin 4.0 Chemistry Comments EKG/XRAY/CT/US/VASC/MRI Chest X-Ray : Additional Comments I personally reviewed the x-ray, and it shows: An opacity behind the left heart border, but otherwise lungs are clear, no widened mediastinum or a pulmonary edema CT : Impression CT abdomen and pelvis: I personally reviewed the CT scan, and this shows a la rge hiatal hernia, with most of the stomach in the chest cavity. Normal aorta. No other inflammatory process in the abdomen or chest Medical Decision Making Additional info obtained from: old records Findings I reviewed past records, the patient was recently admitted here to the hospital for chest pain. He had a full cardiac workup that was unremarkable, and no dangerous cause was identified for his symptoms. Differential Dx:Considerations: Include: angina, aortic dissection, chest wall pain, CHF, costochondritis, esophageal reflux/spasm, gastritis, myocardial infarction, pancreatitis, pneumonia, pneumothorax, pulmonary embolus Assessment The patient presents with chest pain and abdominal pain. Per his history and exam, this seems more consistent with a GI source of pain. EKG and troponin are normal, and I doubt ACS. He was given symptomatic treatment including antacid medications. His chest x-ray does show an abnormality behind the heart. A CT scan was then obtained, which shows a large hiatal hernia, with most of the stomach inside the chest wall, no other acute or dangerous process. I had a discussion with the patient regarding these findings, and at that time he stated he was feeling better and wanted to be discharged home. I did discuss the possible need for surgical evaluation. He will be discharged with a plan for omeprazole, close outpatient follow-up for possible surgical referral, and strict return precautions were given. Departure Time of Disposition: 06:22 Disposition: 01 HOME / SELF CARE / HOMELESS Impression: Primary Impression: Hiatal hernia Additional Impressions: Gastritis Nausea and vomiting Condition: Improved Discharge Instructions: Gastritis, Adult Referrals: NO PRIMARY CARE PROVIDER (PCP) Education Educated: Patient Educated regarding: diagnosis, treatment Signature Scribe Signature: magen Attestation: TATI Ellsworth MD May 15, 2025 03:27
[2025-05-15 03:28] LABS: EOSINOPHILS % (MANUAL) 2.0 % (0-6); LYMPHOCYTES % (MANUAL) 19.0 % (21-51); MONOCYTES % (MANUAL) 7.0 % (2-12); NEUTROPHILS % (MANUAL) 72.0 % (42-75); PLATELET ESTIMATE INCREASED
--- NOTE | 2025-05-15 04:04 | RADIOLOGY REPORT ---
Clinical History CP Comparison None Without Contrast PHI MAYO, [id number] Chest x-ray Clinical history: 54-year-old Chest pain Findings: Lung lutz: Left retrocardiac density. Heart: Normal Musculoskeletal: Normal Impression:Left retrocardiac density. Compare with previous studies or CT of the chest recommended. This report was electronically signed by Mohsen Brandon MD on 05/15/2025 4:01:21 AM.
--- NOTE | 2025-05-15 05:46 | RADIOLOGY REPORT ---
EXAM: CT CTA CHEST ABDOMEN PELVIS W/ IV CONTRAST HISTORY: Chest and abdominal pain radiating to back, abnormal finding on chest x-ray COMPARISON: CT CT ABDOMEN PELVIS W/ IV CONTRAST on DOS: 03/27/25, CT CT CHEST ABDOMEN PELVIS on DOS: 1 , CT CT ABDOMEN PELVIS on DOS: 12/20/23, CT CT CHEST ABDOMEN PELVIS on DOS: 12/18/23, chest x-ray dated 05/15/2025. TECHNIQUE: Helical high resolution CT images of the chest, abdomen, and pelvis were performed with 10 0 ml omnipaque 350 IV contrast using CTA protocol. Sagittal and coronal reformatted images and 3-D ID P images were obtained. This CT exam was performed using one or more of the following dose reduction techniques: Automated exposure control, adjustment of the mA and/or kv according to patient size, or the use of iterative reconstruction techniques. Radiation Dose : CT Dose: CTDI volume is 23.3 mGy. Dose-length product is 1136.82 mGy*cm FINDINGS: CTA chest: The heart is not enlarged. There are coronary artery calcifications. No thoracic aortic an eurysm, dissection, or stenosis. No central pulmonary emboli are visualized. Abdominal Aorta: No abdominal aortic aneurysm, dissection, or significant stenosis. Renal arteries: There are single renal arteries bilaterally. No significant renal artery stenosis calvin aterally.Celiomesenteric: No significant stenosis of the celiac trunk, SMA, or CONOR. Pelvis: The bilateral common iliac arteries, external iliac arteries, and internal iliac arteries are patent. Miscellaneous: There is central peribronchial thickening. There is a large paraesophageal hiatal karen ia measuring 12.7 cm transverse, with a majority of the stomach intrathoracic. The gallbladder is collazo rgically absent. There is a small fatty umbilical hernia. The liver may be diffusely fatty density. T here is fecal retention in the colon. There are sigmoid colon diverticula without evidence of acute d iverticulitis. The prostate is mildly enlarged. There are small bilateral fatty inguinal indirect her nias, slightly larger on the right. There are surgical clips in the right inguinal region. There is m ild degenerative disc disease of the thoracic spine and lumbar spine, advanced degenerative disc dise ase of the partially visualized lower cervical spine. IMPRESSION: 1. No significant stenosis, aneurysmal dilatation, or dissection about the arteries of the chest, abd omen, or pelvis. 2. No evidence of pulmonary embolism. 3. Reactive airways disease. 4. Large paraesophageal hiatal hernia with a majority of the stomach intrathoracic. This has increase d in size compared with CT scan from March 2025. 5. Fecal retention in the colon suggestive of constipation. 6. Sigmoid colon diverticulosis without evidence of acute diverticulitis. 7. Postoperative changes of cholecystectomy and surgical clips in the right inguinal region. 8. Mild prostatic enlargement.
[2025-05-15 06:30] VITALS: BP 133/82; PULSE 79; RESP 18; O2SAT 98
--- NOTE | 2025-05-15 14:29 | ELECTROCARDIOGRAPH REPORT ---
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
== END 2025-05-15 06:35 | disposition home or self-care (01) ==
LOC: ER 01:57
DX: K29.70 Gastritis, unspecified, without bleeding (principal); K44.9 Diaphragmatic hernia without obstruction or gangrene; I25.10 Atherosclerotic heart disease of native coronary artery without angina pectoris; F15.90 Other stimulant use, unspecified, uncomplicated; K21.9 Gastro-esophageal reflux disease without esophagitis; I25.2 Old myocardial infarction; Z88.6 Allergy status to analgesic agent; Z79.82 Long term (current) use of aspirin; Z79.899 Other long term (current) drug therapy
CPT/HCPCS: 36415; 71045; 71275; 74174; 80048; 83880; 84484; 85007; 85025; 93005; 96361; 96374; 96375; 99285; J2405; J2470; J7030; Q9967